=== PATIENT | female | born 1950 | race Caucasian/White ===

== ENCOUNTER → 2022-03-05 09:29 | Outpatient (BNVA) | payer MEDICARE, SELFPAY | PROVIDERS: PCP Internal Medicine; Referring Provider Internal Medicine; Visit Provider Internal Medicine Rheumatology | DX: M81.0 Age-related osteoporosis without current pathological fracture (principal); M47.817 Spondylosis without myelopathy or radiculopathy, lumbosacral region; M19.041 Primary osteoarthritis, right hand; M19.042 Primary osteoarthritis, left hand; M25.50 Pain in unspecified joint; R76.8 Other specified abnormal immunological findings in serum; K51.90 Ulcerative colitis, unspecified, without complications | CPT/HCPCS: 99212 ==

== ENCOUNTER 2022-04-30 14:07 | Outpatient (REF) | payer MEDICARE, SELFPAY ==
--- NOTE | ~2022-04-30 | MM_ITS ---
EXAMINATION: BONE DENSITOMETRY CLINICAL INDICATION: Age-related osteoporosis without current pathological fracture. COMPARISON: None (current study represents initial baseline exam). TECHNIQUE: Using a Mind[employer] Studio DXA System (software version: 13.1) manufactured by [employer], dual-energy x-ray absorptiometry was performed of the lumbar spine and left hip. The images are of good technical quality. Summary results are attached. FINDINGS: AP SPINE L1-L4: BMD 0.810 g/cm2, Z-score -1.8, T-score -3.1, osteoporosis. LEFT FEMUR, NECK: BMD 0.752 g/cm2, Z-score -0.6, T-score -2.1, osteopenia. LEFT FEMUR, TOTAL: BMD 0.747 g/cm2, Z-score -0.9, T-score -2.1, osteopenia. IDENTIFIED RISK FACTORS: Family history (parent hip fracture), height loss, menopause, osteoporosis. HISTORY OF FRACTURE: None listed. MEDICATIONS: Vitamin D. MM/XR DEXA axial skeleton IMPRESSION: 1. DIAGNOSIS: Osteoporosis based on the lowest T-score value of -3.1 in the lumbar spine applying World Health Organization criteria. 2. 10-YEAR FRACTURE RISK PREDICTION, FRAX: According to the guidelines, FRAX calculation should only be performed on patients in the osteopenia bone density category. Therefore, FRAX was not performed on this patient. 3. Treatment Recommendations: NOF guidelines recommend consideration for treatment in postmenopausal women and men age 50 and older presenting with the following: -A hip or vertebral (clinical or morphometric) fracture. -T-score less than or equal to -2.5 at the femoral neck or spine after appropriate evaluation to exclude secondary causes. -Low bone mass at the hip or spine and a 10-year fracture probability by FRAX of greater than or equal to 3% for hip fracture or greater than or equal to 20% for major osteoporotic fracture based on the [place] adapted WHO algorithm. 4. Other Recommendations: All treatment decisions require clinical judgment and consideration of individual patient factors, including patient preferences, comorbidities, previous drug use, risk factors not captured in the FRAX model (e.g. frailty, falls, vitamin D deficiency, increased bone turnover, interval significant decline in bone density) and possible under or overestimation of fracture risk by FRAX. Additional medical evaluation for secondary cause of low bone mineral density may be appropriate. FUTURE SCAN RECOMMENDATION: People with diagnosed cases of osteoporosis or at high risk for fracture should have regular bone mineral density tests. For patients eligible for Medicare, routine testing is allowed once every 2 years. The testing frequency can be increased to one year for patients who have rapidly progressing disease, those who are receiving or discontinuing medical therapy to restore bone mass, or have additional risk factors.
== END 2022-04-30 14:08 | disposition home or self-care (01) ==
LOC: HO.MAMMO 14:07
PROVIDERS: PCP Internal Medicine; Visit Provider Internal Medicine Rheumatology
DX: Z13.820 Encounter for screening for osteoporosis (principal); Z78.0 Asymptomatic menopausal state; M81.0 Age-related osteoporosis without current pathological fracture
CPT/HCPCS: 77080

== ENCOUNTER → 2022-05-06 11:25 | Outpatient (BNVA) | payer MEDICARE, SELFPAY | PROVIDERS: PCP Internal Medicine; Visit Provider Internal Medicine Rheumatology | DX: M77.01 Medial epicondylitis, right elbow (principal); M81.0 Age-related osteoporosis without current pathological fracture; M19.041 Primary osteoarthritis, right hand; M19.042 Primary osteoarthritis, left hand | CPT/HCPCS: 99212 ==

== ENCOUNTER 2022-11-03 08:07 | Outpatient (AMB) | payer MEDICARE, SELFPAY ==
[2022-11-03 08:09] VITALS: BP 118/66; PULSE 83; TEMP 36.2; O2SAT 95; BMI 28.6
--- NOTE | 2022-11-03 08:09 | MHC.OFFVIS ---
Intake Vital Signs 11/03/22 08:09 Height 5 ft 5 in Weight 171 lb 11.841 oz BMI 28.6 BP 118/66 Blood Pressure Location Rt brachial Position Sitting Pulse 83 Pulse Source Pulse Oximeter Temp 97.2 F Temp Source Skin Pulse Oximetry (%) 95 Intake Visit Reasons: op Intake Note: Pt seen today for OA follow up. C/o migrating joint pain mostly in knees and ankles. 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 She has been on the alendronate taking 70 mg once a week since April. There have been no problems. She does report some discomfort at the base of the thumbs and occasionally in the interphalangeal joints. She does take occasional acetaminophen for her symptoms. She is on 25 mcg daily vitamin-D 3 supplements. [facility] Medical History Cervical lymphadenopathy GERD (gastroesophageal reflux disease) Hyperlipidemia Tubular adenoma Surgical History Hx of cholecystectomy Family History Mother Alzheimer disease Breast cancer Father CVA (cerebral vascular accident) Hypertension Brother Myocardial infarct Son Bipolar 1 disorder Social History Household Members: Other Household Members Other:: partner Housing: Apartment Are you a primary career resource specialist to a significant other at home: No Do you presently have visiting nurse or other home services: No 75 years or older and lives alone: No Alcohol intake: current Alcohol intake frequency: a few times a month Alcohol type: wine Patient Tobacco Use Status: Never used Tobacco e-Cigarette/Vaping Use: Never Used service: No Current occupational status: employed 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 Brad/Lymph Details: Negative for excessive bruising or bleeding. Physical Exam Vital Signs: Last Vital Signs Temp 97.2 F 11/03/22 08:09 Pulse 83 11/03/22 08:09 BP 118/66 11/03/22 08:09 Pulse Ox 95 11/03/22 08:09 BMI result Body Mass Index 28.6 APPEARANCE: Patient in no acute distress JOINT EXAM: Hands:? Right:? Mild bony enlargement and mild tenderness at the base of the thumb.? There is mild bony enlargement with slight tenderness at the PIP joints.? There is more significant bony enlargement and mild tenderness at the DIP joints.? There is some thenar atrophy but no sensory loss.? There is no flexor tendon triggering or tenderness.? Left:? Moderate bony enlargement and mild tenderness at the base of the thumb.? There is some hyperextension deformity at the thumb MCP and PIP.? There is mild bony enlargement at the PIP joints.? This is most marked flexion deformity at the 4th PIP.? All those PIP's have slight tenderness.? There is also mild bony enlargement flexion deformities at the 2nd through 4th DIP joints.? No flexor tendon triggering.? There is some thenar atrophy but no sensory loss. Wrists:.? Normal pain-free range of motion without tenderness, swelling, increased warmth or erythema. Elbows:? Right:? Normal pain-free range of motion with some mild to moderate medial epicondylar tenderness.? There is no tenderness or swelling over the joint space.? Left:? Normal pain-free range of motion without tenderness, swelling, increased warmth or erythema. Shoulders:.?? Full range of motion without pain. No tenderness, weakness, swelling, increased warmth or erythema. Hips:.? Full range of motion without pain. Hip bursa:.? No tenderness. Knees:? Normal pain-free range of motion with mild patellofemoral crepitus.? There is mild medial compartment tenderness bilaterally without effusion, soft tissue swelling, increased warmth or erythema.? Assessment & Plan Assessment & Plan (1) Osteoarthritis of hands, bilateral: Code(s): M19.041 - Primary osteoarthritis, right hand; M19.042 - Primary osteoarthritis, left hand (2) Osteoporosis: Comment: May 2019 DEXA at [place]: T-scores at hip-2.5, and LS spine, -2.9 04/2022 DEXA at [place]: hip -1.7 LS spine -3.1 04/2022 alendronate started Code(s): M81.0 - Age-related osteoporosis without current pathological fracture Plan She seems to be tolerating the alendronate for the osteoporosis. There is some osteoarthritis in the hands that does not seem to bother her too much currently. We will check a vitamin-D level to optimize its level. I told her we would continue the alendronate and plan to do a repeat bone density in 2024 to see if there is any impact on the bone density with current treatment. She will call us in late 2023 to get a 2024 appointment. Orders: Orders Vitamin D 25-OH (D2 and D3) Today M81.0 - Age-related osteoporosis without current pathological fracture Coding Level of Care Code Est Pt Level 3 (19474) Diagnoses Osteoarthritis of hands, bilateral M19.041; M19.042 Osteoporosis M81.0
== END 2022-11-03 08:25 | disposition home or self-care (01) ==
LOC: HO.RHE 08:07
PROVIDERS: PCP Internal Medicine; Visit Provider Internal Medicine Rheumatology
DX: M19.041 Primary osteoarthritis, right hand (principal); M19.042 Primary osteoarthritis, left hand; M81.0 Age-related osteoporosis without current pathological fracture
CPT/HCPCS: 99213

== ENCOUNTER → 2022-11-03 08:07 | Outpatient (BNVA) | payer MEDICARE, SELFPAY | PROVIDERS: PCP Internal Medicine; Visit Provider Internal Medicine Rheumatology | DX: M81.0 Age-related osteoporosis without current pathological fracture (principal); M19.041 Primary osteoarthritis, right hand; M19.042 Primary osteoarthritis, left hand | CPT/HCPCS: 99212 ==

== ENCOUNTER 2024-04-25 10:30 | Outpatient (AMB) | payer MEDICARE, SELFPAY ==
[2024-04-25 10:31] VITALS: BP 132/72; PULSE 95; BMI 25.9
--- NOTE | 2024-04-25 10:31 | A.OFFVIS_ITS ---
Vital Signs 04/25/24 10:31 Height 5 ft 5 in Weight 155 lb 10.342 oz BMI 25.9 BP 132/72 Blood Pressure Location Rt brachial Position Sitting Pulse 95 Pulse Source Pulse Oximeter Intake Visit Reasons: Osteoporosis Intake Note: Patient last seen by Doctor Justyn Mancini on 11/03/22. Presents today for Osteoporosis follow up. 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 Accompanied by: Self / Same As Patient Allergies lisinopril Allergy (Intermediate, Verified 04/25/24 10:36) Cough sulfasalazine Allergy (Intermediate, Verified 04/25/24 10:36) rash Medication List - Last Reconciled 04/25/24 by Sterling Lucas MD acetaminophen ER (Tylenol Arthritis Pain) 1,300 mg PO Q12H PRN alendronate 70 mg PO QWEEK arm brace (Elbow Strap) Appy when using hands atorvastatin 20 mg PO DAILY bupropion HCl XL 300 mg PO DAILY cholecalciferol (vitamin D3) 25 mcg PO DAILY clonidine HCl 0.1 mg PO DAILY famotidine 20 mg PO BID fluocinolone 0.01% 1 appl topical BID gabapentin 100 mg PO BEDTIME ketoconazole 2% 1 appl topical 2XW melatonin 3 mg PO BEDTIME PRN omeprazole 20 mg PO DAILY HPI Comments Details: 74-year-old female with osteoporosis and osteoarthritis returns for follow-up. She has been taking Fosamax since approximately 04/2022. Well-tolerated. She denies any recent falls or fractures. She states that she gets intermittent mid to low back pain, that is nonradiating to her legs, intermittent left knee pain, usually with activity. 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 Symptoms improve with rest, icing the affected joints and Tylenol. [facility] Medical History GERD (gastroesophageal reflux disease) Cervical lymphadenopathy Hyperlipidemia Tubular adenoma Surgical History Hx of cholecystectomy Family History Mother Alzheimer disease Breast cancer Father CVA (cerebral vascular accident) Hypertension Brother Myocardial infarct Son Bipolar 1 disorder Social History Household Members: Other Household Members Other:: partner Housing: Apartment Are you a primary caregiver services home to a significant other at home: No Do you presently have visiting nurse or other home services: No 75 years or older and lives alone: No Alcohol intake: current Alcohol intake frequency: a few times a month Alcohol type: wine Patient Tobacco Use Status: Never used Tobacco e-Cigarette/Vaping Use: Never Used service: No Current occupational status: employed 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 Review of Systems [facility] [place] Reports back pain, Reports arthralgias and Denies radiating pain into limb Physical Exam Vital Signs: Last Vital Signs Pulse 95 04/25/24 10:31 BP 132/72 04/25/24 10:31 Const General: cooperative, healthy appearing and comfortable Nutritional Appearance: overweight Orientation/consciousness: patient oriented x3 Limitations: no limitations HEENT Head: Yes normocephalic and Yes atraumatic Mouth: moist mucous membranes Resp Effort & Inspection: normal respiratory effort and able to speak in complete sentences Auscultation: clear to auscultation bilaterally Cardio Rate: regular rate Rhythm: regular rhythm Skin General skin exam: no rashes or lesions noted Neuro General: patient oriented x3 Extrem Other: Significant osteoarthritic changes of both hands with squaring of the 1st CMC joints Prominent Shobha's and Heberden's nodes No active synovitis today Normal pain-free range of motion of elbows and shoulders Assessment & Plan Assessment & Plan (1) Osteoporosis: Comment: May 2019 DEXA at [place]: T-scores at hip-2.5, and LS spine, -2.9 04/2022 DEXA at [place]: hip -1.7 LS spine -3.1 04/2022 alendronate started Code(s): M81.0 - Age-related osteoporosis without current pathological fracture Category: Medical Qualifiers: Osteoporosis type: age-related Presence of current pathological fracture: without current pathological fracture Qualified Code(s): M81.0 - Age- related osteoporosis without current pathological fracture Plan: This is a 74-year-old female with osteoporosis who presents for follow-up. We discussed osteoporosis and its management. Patient is due for a repeat DEXA scan. Repeat DEXA scan ordered Check labs for bone activity markers and secondary causes of osteoporosis Continue with vitamin-D intake Continue with Fosamax Discussed weight-bearing exercise Follow-up in 2-3 months Plan I spent 20 minutes reviewing patient's chart, evaluating patient, ordering diagnostic workup, counseling patient and documenting in the chart Orders: Orders XR DEXA axial skeleton Today M81.0 - Age-related osteoporosis without current pathological fracture Coding Level of Care Code Est Pt Level 4 (45427) Diagnoses Age-related osteoporosis without current pathological fracture M81.0 Osteoporosis type: age-related Presence of current pathological fracture: without current pathological fracture
== END 2024-04-25 10:55 | disposition home or self-care (01) ==
PROVIDERS: PCP Internal Medicine; Visit Provider Student in an Organized Health Care Education/Training Program
DX: M81.0 Age-related osteoporosis without current pathological fracture (principal)
CPT/HCPCS: 99214

== ENCOUNTER → 2024-04-25 10:30 | Outpatient (BNVA) | payer MEDICARE, SELFPAY | PROVIDERS: PCP Internal Medicine; Visit Provider Student in an Organized Health Care Education/Training Program | DX: M81.0 Age-related osteoporosis without current pathological fracture (principal) | CPT/HCPCS: 99212 ==

== ENCOUNTER 2024-04-28 07:33 | Outpatient (REF) | payer MEDICARE, SELFPAY ==
[2024-04-28 11:08] LABS: Alanine Aminotransferase 19 U/L (0-31); Albumin Level 4.3 g/dL (3.5-5.0); Alkaline Phosphatase 57 U/L (39-117); Anion Gap 10 (12-20); Aspartate Amino Transferase 19 U/L (5-31); Bilirubin Total 0.4 mg/dL (0.0-1.0); Blood Urea Nitrogen 14 mg/dL (9-16); Calcium 9.1 mg/dL (8.4-10.2); Carbon Dioxide 28 mmol/L (22-29); Chloride 106 mmol/L (96-108); Estimated Glomerular Filt Rate > 60; Glucose Random 107 mg/dL (60-115); Potassium 4.2 mmol/L (3.3-5.1); Sodium 140 mmol/L (135-145); Total Protein 7.2 g/dL (6.5-8.0)
[2024-04-28 11:19] LABS: TSH reflex Free T4 1.08 uIU/mL (0.32-4.0); Vitamin D 25-OH Total 57.5 ng/mL (>30)
[2024-05-01 11:08] LABS: Prot Elec - Albumin 4.4 g/dL (3.8-4.8); Prot Elec - Alpha1 0.3 g/dL (0.2-0.3); Prot Elec - Alpha2 0.7 g/dL (0.5-0.9); Prot Elec - Beta 1 0.5 g/dL (0.4-0.6); Prot Elec - Beta 2 0.5 g/dL (0.2-0.5); Prot Elec - Gamma 0.8 g/dL (0.8-1.7); Prot Elec - Total Protein 7.1 g/dL (6.1-8.1)
[2024-05-03 05:39] LABS: Collagen Type I C-Telopeptide 88 pg/mL (see note)
== END 2024-04-28 07:34 | disposition home or self-care (01) ==
LOC: HO.10HDL 07:33
PROVIDERS: Visit Provider Student in an Organized Health Care Education/Training Program
DX: M81.0 Age-related osteoporosis without current pathological fracture (principal); E55.9 Vitamin D deficiency, unspecified
CPT/HCPCS: 36415; 80053; 82306; 82523; 84165; 84443

== ENCOUNTER 2024-06-13 08:37 | Outpatient (REF) | payer MEDICARE, SELFPAY ==
--- OUTSIDE RECORDS SUMMARY | 2024-06-13 09:03 | XMS_ITS | Encounter Summary ---
Author Organization [facility] Address [address] [place] [address] Care Team Providers Care Top Dyeing Machine Loader Name Role Phone Jada Santana MD Primary Care Provider Natasha Toney APRN Unavailable [phone] Edy Davis MD Unavailable Encounter Details Date Type Department Care Team (Late st Contact Info) Description 06/07/[address] [place] [address] Jada Santana MD [address] [place] [address] Social History Tobacco Use Types Packs/Day Years Used Date Smoking Tobacco: Never Smokeless Tobacco: Never Alcohol Use Standard Drinks/Week Comments Yes 0 (1 standard drink = 0.6 oz pur e alcohol) Once a month (two) [facility] Utilities Answer Date Recorded In the past 12 months has [employer], gas, oil, or water [employer] threatened to shut off services in your home? No 05/25/2024 Social Connection and Isolation Panel [NHANES] A nswer Date Recorded In a typical week, how many times do you talk on the phone with family, friends, or neighbors? Three times a week 05/25/2024 Frequency of Social Gatherin gs with Friends and Family Not on file 05/25/2024 Attends Yazidism Services Not on file 05/25 Active Member of Clubs or Organizations Not on f ile 05/25/2024 Attends Club or Organization Meetings Not on tushar e 05/25/2024 Marital Status Not on file 05/25/2024 AUDIT-C Answer Date Recorded Q1: How often do you have a drink containing alc ohol? Monthly or less 05/25/2024 Q2: How many drinks containi ng alcohol do you have on a typical day when you are drinking? 1 or 2 05/25/2024 Frequency of Binge Drinking Not on file 04/28 PHQ-2 Answer Date Recorded PHQ-2 Total Score 3 05/25/2024 Hunger Vital Sign Answer Date Recorded Within the past 12 months, y ou worried that your food would run out before you got the money to buy more. Never true 05/25/19 25 Within the past 12 months, t he food you bought just didn't last and you didn't have money to get more. Never true 05/25/2024 PRAPARE - Transportation Answer Date Re corded In the past 12 months, has l ack of transportation kept you from medical appointments or from getting medications? No 04/28 In the past 12 months, has l ack of transportation kept you from meetings, work, or from getting things needed for daily living? No 05/25/2024 Housing Stability Vital Sign Answer Kale e Recorded In the last 12 months, was t here a time when you were not able to pay the mortgage or rent on time? No 05/25/2024 Number of Times Moved in the Last Year Not on fi le 05/25/2024 At any time in the past 12 m [facility], were you homeless or living in a long term (including now)? No 05/25/2024 Education Answer Date Recorded What is the highest level of school you have completed or the highest degree you have received? Bachelor's degree (e.g., BA, AB, BS) 05/25/2024 Sex and Gender Information Value Date Recorded Sex Assigned at Female 05/24/2024 9:08 AM EST Gender Identity Female 05/24/2024 9:08 AM EST Sexual Orientation Heterosexual (straight) 05/24 9:08 AM EST documented as of this encounter Miscellaneous Notes * Telephone Encounter - Jada Santana MD - 06/07/2024 3:36 PM EST GI referral to Dr. Edy Davis. documented in this encounter Plan of Treatment Not on file documented as of this encounter Visit Diagnoses Not on filedocumented in this encounter Care Teams Top Dyeing Machine Loader Relationship Specialty Start Date End Date Jada Santana MD [address] [place] [address] PCP - General Internal Medicine 05/26/24 Natasha Toney APRN [address] [place] [address] Referring Provider 06/06/24 Edy Davis MD [address] [place] [id number] Internal Medicine 06/07/24 documented as of this encounter
--- OUTSIDE RECORDS SUMMARY | 2024-06-13 09:03 | XMS_ITS | Encounter Summary ---
Author Organization [facility] Address [address] [place] [address] Care Team Providers Care Planning Technician Name Role Phone Jada Santana MD Primary Care Provider [phone] Reason for Visit * Reason Onset Date Comments Appointment 06/09/2024 Encounter Details Date Type Department Care Team (Late st Contact Info) Description 06/09/2024 Telephone Gastroenterology - [place] [address] [place] [address] Edy Davis MD [address] [place] [address] Appointment Social History Tobacco Use Types Packs/Day Years Used Date Smoking Tobacco: Never Smokeless Tobacco: Never Alcohol Use Standard Drinks/Week Comments No 0 (1 standard drink = 0.6 oz pur e alcohol) Comments Unknown Sex and Gender Information Value Date Recorded Sex Assigned at Not on file Legal Sex Female 8:39 AM EST Gender Identity Not on file Sexual Orientation Not on file documented as of this encounter Progress Notes * Melinda Jacobo - 06/09/2024 10:39 AM EST Records received from Dr. Santana's office for patient to f/u with Dr. Davis for GERD. 1st attempt to reach patient to schedule appointment. Left message to call back. Placed in called accordion. documented in this encounter Plan of Treatment Upcoming Encounters Date Type Department Care Team (Late st Contact Info) Description 02/20/2025 8:30 AM EDT Office Visit Urogynecology - [place] [address] [place] [address] Adelina Magaña MD [address] [facility] [address] [place] [address] documented as of this encounter Visit Diagnoses Not on filedocumented in this encounter Care Teams Planning Technician Relationship Specialty Start Date End Date Jada Santana MD [address] [place] [address] PCP - General Internal Medicine 06/09/24 documented as of this encounter
--- OUTSIDE RECORDS SUMMARY | 2024-06-13 09:03 | XMS_ITS | Clinical Summary ---
Author Organization [facility] Address [address] [place] [address] Care Team Providers Care Paper Twister Name Role Phone Unavailable Primary Care Provider Unavailabl e Allergies Active Allergy Reactions Criticality Noted Date Comments Lisinopril 01/31/2019 Other reaction(s): Cough Sulfadiazine 01/16/2019 Other reaction(s): Rash/Dermatitis No reaction documented. Medications cholecalciferol , vitamin D3, 25 mcg (1,000 unit) capsule Take 1 capsule by mouth. Active melatonin 3 mg tab Take 1 tablet by mouth. Active naproxen sodium (ALEVE) 220 MG tablet Take 220 mg by mouth. Active sertraline (ZOLOFT) 100 MG tablet Take 100 mg by mouth. 09/03/2020 Active sertraline (ZOLOFT) 100 MG tablet TAKE 1 TABLET BY MOUTH EVERY DAY 09/03/2020 Active Social History Tobacco Use Types Packs/Day Years Used Date Smoking Tobacco: Never Assessed Comments Unknown Sex and Gender Information Value Date Recorded Sex Assigned at Not on file Legal Sex Female 12:33 PM EDT Gender Identity Not on file Sexual Orientation Not on file Last Filed Vital Signs Vital Sign Reading Time Taken Comments Blood Pressure - - Pulse 70 11/28/2020 5:09 PM EDT Temperature 36.3 ??C (97.3 ??F) 11/28/2020 5:09 PM ED T Respiratory Rate - - Oxygen Saturation 97% 11/28/2020 5:09 PM EDT Inhaled Oxygen Concentration - - Weight - - Height - - Body Mass Index - - Plan of Treatment Health Maintenance Due Date Last Done Comments Colorectal Cancer: COLONOSCO PY Screening every 10 yrs (or Modifier) 1950 Depression: Screening Annual ly using PHQ-2/9 in Adults 18 yrs or above (or HM Modifier)([facility]) 02/11/1970 Hepatitis C Virus Infection in Adolescents and Adults: Screening (or Modifier) ([facility]) 02/11/1970 SDOH Screening Reminder: Jennifer moffett for all adults ([facility]) 02/11/1970 Tobacco Smoking Cessation: i n Adults excluding Women: Behavioral and Pharmacotherapy Interventions ([facility]) 02/11/1970 DTaP/Tdap/Td Vaccines ([facility]) (1 - Tdap) 02/11/1971 Colorectal Cancer Screening 45 -75 Yrs (or HM Modifier) 02/11/1997 Colorectal Cancer: FLEXIBLE SIGMOIDOSCOPY Screening every 5 yrs 02/11/1997 Colorectal Cancer: Fecal Imm unochemical Test (FIT) Annually [facility] 02/11/1997 Colorectal Cancer: High-sens itivity gFOBT Screening Annually [facility] 02/11/1997 Colorectal Cancer: Stool Col oguard Screening every 3 yrs 02/11/1997 Colorectal Cancer:CT Colonog gaye Screening every 5 yrs 02/11/1997 Lipid Screening: Every 5 yrs for Women aged 45+ (or HM Modifier) ([facility]) 02/11/1998 Breast Cancer: Screening Jennifer zuhair age 50-74 yrs (or HM Modifier)([facility]) 02/11/2002 Zoster/Shingles Vaccine Seri es Screening: Adults aged 18+ yrs (or HM Modifiers)([facility]) (1 of 2) 02/11/2002 Osteoporosis Screening to Pr event Fractures: Women aged 65 years+ ([facility]) 02/11/2017 Pneumococcal Vaccination Scr eening: Patients 65+ yrs of age ([facility]) (1 of 1 - PCV) 02/11/2017 Flu Vaccination: Ages 65+: Y early High Dose Recommended (or Modifier)([facility]) 11/25/2023 03/06/2019 COVID-19 Vaccine Screening: Initial Series and Booster Status ([facility]) ( - season) 2023 07/23/2020, 06/24/2020 RSV Vaccines (1 - 1-dose 75+ series) 02/11/2027 Medical Devices Not on file Insurance [place] [address]
--- OUTSIDE RECORDS SUMMARY | 2024-06-13 09:03 | XMS_ITS | Encounter Summary ---
Author Organization [facility] Address [address] [place] [address] Care Team Providers Care Travel Med Surg Rn Name Role Phone Jada Santana MD Primary Care Provider Encounter Details Date Type Department Care Team (Latest Contact Info) Description 05/26/2024 Travel Social History Tobacco Use Types Packs/Day Years Used Date Smoking Tobacco: Never Smokeless Tobacco: Never Alcohol Use Standard Drinks/Week Comments Yes 0 (1 standard drink = 0.6 oz pur e alcohol) Once a month (two) [facility] Utilities Answer Date Recorded In the past 12 months has [employer], gas, oil, or water [facility] threatened to shut off services in your home? No 05/25/2024 Social Connection and Isolation Panel [NHANES] A nswer Date Recorded In a typical week, how many times do you talk on the phone with family, friends, or neighbors? Three times a week 05/25/2024 Frequency of Social Gatherin gs with Friends and Family Not on file 05/25/2024 Attends Mosque Services Not on file 05/25 Active Member [...] any time in the past 12 m [facility], were you homeless or living in a senior living (including now)? No 05/25/2024 Education Answer Date [...] AM EST documented as of this encounter Plan of Treatment Not on file documented as of this encounter Visit Diagnoses Not on filedocumented in this encounter Care Teams Travel Med Surg Rn Relationship Specialty Start Date End Date Jada Santana MD [address] [place] [address] PCP - General Internal Medicine 05/26/24 documented as of this encounter
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
--- OUTSIDE RECORDS SUMMARY | 2024-06-13 09:03 | XMS_ITS | Encounter Summary ---
Author Organization [facility] Address [address] [place] [id number] Care Team Providers Care Item Repair Manager Name Role Phone Jada Santana MD Primary Care Provider Natasha Toney APRN Unavailable [phone] Edy Davis MD Unavailable Reason for Referral * Gastroenterology (Routine) - Authorized Specialty Diagnoses / Procedures Referred By Contac t Referred To Contact Gastroenterology Diagnoses Gastroesophageal reflux disease, unspecified whether esophagitis present Jada Santana MD [address] [place] [address] Edy Davis MD [address] [place] [id number] Referral ID Status Reason Start Date Expiration Date V isits Requested Visits Authorized [id number] Authorized Consult 06/07/2024 06/08/2025 1 1 Question Answer Select Referral Type: Consult Encounter Details Date Type Department Care Team (Late st Contact Info) Description 06/07/2024 Orders Only [address] [place] [phone] Jada Santana MD [address] [place] [address] Gastroesophageal reflux disease, unspecified whether esophagitis present (Primary Dx) Social History Tobacco Use Types Packs/Day Years Used Date Smoking Tobacco: Never Smokeless Tobacco: Never Alcohol Use Standard Drinks/Week Comments Yes 0 (1 standard drink = 0.6 oz pur e alcohol) Once a month (two) [facility] Utilities Answer Date Recorded In the past 12 months has th e electric, gas, oil, or water company threatened to shut off services in your home? No 05/25/2024 Social Connection and Isolation Panel [NHANES] A nswer Date Recorded In a typical week, how many times do you talk on the phone with family, friends, or neighbors? Three times a week 05/25/2024 Frequency of Social Gatherin gs with Friends and Family Not on file 05/25/2024 Attends [employer] Not on file 05/25 Active Member [...] any time in the past 12 m [facility], were you homeless or living in a jail (including now)? No 05/25/2024 Education Answer Date [...] AM EST documented as of this encounter Progress Notes * Shanice Amezcua MA - 06/08/2024 12:30 PM EST Referral and OV notes faxed to Dr. Davis documented in this encounter Plan of Treatment Scheduled Referrals Name Type Priority Associated Diagnoses Order Schedule Amb Referral to Gastroenterology Outpatient Referral Routine Gastroesophageal reflux disease, unspecified whether esophagitis present Ordered: 06/07/2024 documented as of this encounter Visit Diagnoses Diagnosis Gastroesophageal reflux disease, unspecified whether esophagitis present- Primary documented in this encounter Care Teams Item Repair Manager Relationship Specialty Start Date End Date Jada Santana MD [address] [place] [address] PCP - General Internal Medicine 05/26/24 Natasha Toney APRN [address] [place] [id number] Referring Provider 06/06/24 Edy Davis MD [address] [place] [id number] Internal Medicine 06/07/24 documented as of this encounter
--- OUTSIDE RECORDS SUMMARY | 2024-06-13 09:03 | XMS_ITS | Clinical Summary ---
Author Organization [facility] Address [address] [place] [address] Care Team Providers Care Economic Developer Name Role Phone Jada Santana MD Primary Care Provider [phone] Natasha Toney APRN Unavailable [phone] Edy Davis MD Unavailable Allergies Active Allergy Reactions Criticality Noted Date Comments Lisinopril Cough Low 01/31/2019 Other reaction(s): Cough Sulfadiazine Rash/Dermatitis Low 01/16/2019 Other reaction(s): Rash/Dermatitis No reaction documented. No reaction documented. Medications Medication Sig Dispensed Refills Start Date End Date Status OMEprazole (PriLOSEC) 40 MG capsule Take 1 capsule (40 mg total) by mouth daily at the same time. 02/09/2024 Active solifenacin (VESICARE) 5 MG tablet Take 1 tablet (5 mg total) by mouth daily. Active melatonin 3 MG Tab tablet Take 1 tablet (3 mg total) by mouth as needed. Active estradiol (ESTRACE) 0.01 % vaginal cream Insert into the vagina 2 (two) times a week. 02/21/2024 03/16/2025 Active cloNIDine (CATAPRES) 0.1 MG tablet Take 1 tablet (0.1 mg total) by mouth daily. 10/03/2023 Active Vitamin D3 (CHOLECALCIFEROL) 25 MCG (1000 UT) Cap Take 1 capsule by mouth daily. Active busPIRone (BUSPAR) 5 MG tablet Take 1 tablet (5 mg total) by mouth 2 times a day. 08/05/2023 Active buPROPion (WELLBUTRIN XL) 150 MG 24 hr tablet Take 1 tablet (150 mg total) by mouth every morning. Active alendronate (FOSAMAX) 70 MG tablet Take 1 tablet (70 mg total) by mouth every 7 days. Take with a full glass of water; do not lie down for the next 30 min. Active atorvastatin (LIPITOR) 20 MG tablet Take 1 tablet (20 mg total) by mouth daily. Active Active Problems Problem Noted Date Diagnosed Date Hyperlipidemia 06/07/2024 Osteoporosis 06/07/2024 Anxiety and depression 06/07/2024 Acid reflux Encounters Date Type Department Care Team Description 06/07/2024 Orders Only [address] [phone] Jada Santana MD Gastroesophageal reflux disease, unspecified whether esophagitis present (Primary Dx) 06/07/[address] [phone] Jada Santana MD 05/26/2024 10:00 AM EST Office Visit [address] [phone] Jada Santana MD Encounter to establish care (Primary Dx); Gastroesophageal reflux disease, unspecified whether esophagitis present; Tremor; Hyperlipidemia, unspecified hyperlipidemia type; Osteoporosis, unspecified osteoporosis type, unspecified pathological fracture presence 05/26/[address] [phone] Jada Santana MD 05/26/2024 Travel from Last 3 Months Immunizations Name Administration Dates Next Due Covid-19 mRNA Primary Series Vaccine - Moderna 0.5 mL Full Dose 07/23/2020,06/24/2020 Influenza, Trivalent (FLUAD) Adjuvanted Preservative Free IM 65 years and older 01/07/2022,04/11/2021,03/06/2019 Zoster Vaccine Recombinant (Shingrix) 01/25/2023 Family History Medical History Relation Name Comments Alcohol abuse Brother Drug abuse Brother Cocaine Heart attack Brother Stroke Father Alzheimer's disease Maternal Aunt 1 Schizophrenia Maternal Aunt 2 Alzheimer's disease Maternal Aunt 3 Lung cancer Maternal Grandfather smoker Breast cancer Mother Stroke Paternal Aunt Heart attack Paternal Grandmother Stroke Paternal Grandmother Heart attack Paternal Uncle Lung cancer Sister at 62 Bipolar disorder Son 1 Parkinson's disease Neg Hx Tremor Neg Hx Relation Name Status Comments Brother Father Maternal Aunt 1 Maternal Aunt 2 Alive Maternal Aunt 3 Alive Maternal Grandfather Maternal Grandmother Mother Paternal Aunt Paternal Grandfather Paternal Grandmother Paternal Uncle Sister Son 1 Alive Son 2 Alive Social History Tobacco Use Types Packs/Day Years Used Date Smoking Tobacco: Never Smokeless Tobacco: Never Tobacco Cessation:Counseling Given: Not Answered Alcohol Use Standard Drinks/Week Comments Yes 0 (1 standard drink = 0.6 oz pur e alcohol) Once a month (two) [facility] Utilities Answer Date Recorded In the [...] and Family Not on file 05/25/2024 Attends Taoism Services Not on file 05/25 Active Member [...] any time in the past 12 m [facility], were you homeless or living in a nursing home (including now)? No 05/25/2024 Education Answer Date Recorded What is the highest level of school you have completed or the highest degree you have received? Bachelor's degree (e.g., BA, AB, BS) 05/25/2024 Sex and Gender Information Value Date Recorded Sex Assigned at Female 05/24/2024 9:08 AM EST Gender Identity Female 05/24/2024 9:08 AM EST Sexual Orientation Heterosexual (straight) 05/24 9:08 AM EST Last Filed Vital Signs Vital Sign Reading [...] Mass Index 25.63 05/26/2024 10:13 AM EST Plan of Treatment Health Maintenance Due Date Last Done Comments Hepatitis C Virus Screening 1950 Annual Wellness Visit 02/11/1970 Physical 02/11/1970 DTaP/Tdap/Td Vaccines (1 - Tdap) 02/11/1971 Mammogram 1992 Colonoscopy 02/11/1997 Pneumococcal Vaccines 50+ (1 of 1 - PCV) 02/11/2002 DXA Bone Density (Females,Ages 65 and older) 02/11/2017 Zoster (Shingles) Vaccine (2 of 2) 03/22/2023 01/25/2023 Influenza Vaccine 11/25/2023 01/07/2022, 04/11/2021, 03/06/2019 COVID-19 Vaccine (3 2023-2 5 season) 2023 07/23/2020, 06/24/2020 RSV Vaccine 60 years and older and Patients (1 - 1-dose 75+ series) 02/11/2027 Hepatitis B Vaccines Aged Out No long er eligible based on patient's age to complete this topic Care Teams Economic Developer Relationship Specialty Start Date End Date Jada Santana MD [address] [place] [address] PCP - General Internal Medicine 05/26/24 Natasha Toney APRN [address] [place] [address] Referring Provider 06/06/24 Edy Davis MD [address] [id number] Internal Medicine 06/07/24
--- OUTSIDE RECORDS SUMMARY | 2024-06-13 09:03 | XMS_ITS | Encounter Summary ---
Author Organization [facility] Address [address] [place] [address] Care Team Providers Care Civil Estimator Name Role Phone Jada Santana MD Primary Care Provider Natasha Toney APRN Unavailable [phone] Edy Davis MD Unavailable Encounter Details Date Type Department Care Team (Late st Contact Info) Description 05/26/[address] [place] [address] Jada Santana MD [address] [place] [address] Social History Tobacco Use Types Packs/Day Years Used Date Smoking Tobacco: Never Smokeless Tobacco: Never Alcohol Use Standard Drinks/Week Comments Yes 0 (1 standard drink = 0.6 oz pur e alcohol) Once a month (two) [facility] Utilities Answer Date Recorded In the past 12 months has [employer], gas, oil, or water [employer] threatened to shut off services in your home? No 05/25/2024 Social Connection and Isolation Panel [NHANES] A nswer Date Recorded In a typical week, how many times do you talk on the phone with family, friends, or neighbors? Three times a week 05/25/2024 Frequency of Social Gatherin gs with Friends and Family Not on file 05/25/2024 Attends Quaker Services Not on file 05/25 Active Member [...] any time in the past 12 m [facility], were you homeless or living in a chcf (including now)? No 05/25/2024 Education Answer Date [...] encounter Miscellaneous Notes * Telephone Encounter - Lesley Fitzpatrick - 06/08/2024 9:54 AM EST Vm left again for patient * Telephone Encounter - Jada Santana MD - 06/07/2024 3:33 PM EST Patient has not yet read your [facility] message about scheduling her follow-up appointment. Please follow-up with patient. Jada Santana MD * Telephone Encounter - Lesley Fitzpatrick - 05/26/2024 11:52 AM EST Vm left and my chart sent documented in this encounter Plan of Treatment Not on file documented as of this encounter Visit Diagnoses Not on filedocumented in this encounter Care Teams Civil Estimator Relationship Specialty Start Date End Date Jada Santana MD [address] [place] [address] PCP - General Internal Medicine 05/26/24 Natasha Toney APRN [address] [place] [address] Referring Provider 06/06/24 Edy Davis MD [address] [address] Internal Medicine 06/07/24 documented as of this encounter
--- OUTSIDE RECORDS SUMMARY | 2024-06-13 09:04 | XMS_ITS | Clinical Summary ---
Author Organization 175 [facility] Address [address] [place] [address] Phone Care Team Providers Care Hanging Flags Decorator Name Role Phone Jada Santana MD Primary Care Provider [phone] Encounters Date Type Department Care Team Description 06/09/2024 Telephone Gastroenterology [facility] 175 [facility] 175 [facility] [address] [place] [address] Edy Davis MD Appointment from Last 3 Months Surgical History Surgery Date Site/Laterality Comments CHOLECYSTECTOMY 05/23/2014 PROCEDURE: HISTORICAL CHOLECYSTECTOMY COLONOSCOPY 05/22/2019 PROCEDURE: HISTORICAL COLONOSCOPY; COMMENT: Dr. Davis; proctitis, UC, bx CHOLECYSTECTOMY PROCEDURE: DC LAPAROSCOPY SURG CHOLECYSTECTOMY OTHER SURGICAL HISTORY Bilateral PROCEDURE: DC DILATION & CURETTAGE DX&/THER NONOBSTETRIC Medical History Medical History Date Comments GERD (gastroesophageal reflu x disease) 01/16/2019 DX:GERD (gastroesophageal re flux disease) Anxiety 01/16/2019 DX:Anxiety Insomnia 01/16/2019 DX:Insomnia Depression 01/16/2019 DX:Depression Ulcerative colitis (CMS/HCC) 01/16/2019 DX: Ulcerative colitis (HCC); COMMENT: in remission x years Tubular adenoma 01/16/2019 DX:Tubular adeno ma Hyperlipidemia 01/16/2019 DX:Hyperlipidemi a Osteoarthritis 01/16/2019 DX:Osteoarthriti s; COMMENT: Hands and knees. Osteoporosis 01/16/2019 DX:Osteoporosis Cervical lymphadenopathy 01/16/2019 DX:Cerv ical lymphadenopathy Family History Medical History Relation Name Comments Stroke Aunt Paternal x 2 aunts Heart attack Brother 1 cocaine and alc ohol Alcohol abuse Brother 2 Other: Other Brother 2 from day from a house fire Hypertension Father Stroke Father hypertension Alzheimer's disease Mother Breast cancer Mother in her 70's. A lzheimer's. arthritis Lung cancer Sister smoker Other: Other Son 1 gets fluid arou nd heart Bipolar disorder Son 2 Heart attack Uncle Paternal x2 uncles Relation Name Status Comments Aunt Paternal Brother 1 Brother 2 Father Mother Other P Sister Son 1 Alive Son 2 Alive Uncle Paternal Social History Tobacco Use Types Packs/Day Years Used Date Smoking Tobacco: Never Smokeless Tobacco: Never Alcohol Use Standard Drinks/Week Comments No 0 (1 standard drink = 0.6 oz pur e alcohol) Comments Unknown Sex and Gender Information Value Date Recorded Sex Assigned at Not on file Legal Sex Female 8:39 AM EST Gender Identity Not on file Sexual Orientation Not on file Obstetrics History Last Filed Vital Signs Vital Sign Reading Time Taken Comments Blood Pressure 142/88 02/21/2024 10:37 AM EDT Pulse 68 02/21/2024 10:37 AM EDT Temperature - - Respiratory Rate - - Oxygen Saturation - - Inhaled Oxygen Concentration - - Weight 72 kg (158 lb 12.8 oz) 02/21/2024 10:37 A M EDT Height 165.1 cm (5' 5 ) 02/21/2024 10:37 AM EDT Body Mass Index 26.43 02/21/2024 10:37 AM EDT Plan of Treatment Upcoming Encounters Date Type Department Care Team (Late st Contact Info) Description 02/20/2025 8:30 AM EDT Office Visit Urogynecology [address] [address] Adelina Magaña MD [address] [place] [address] [address] [place] [address] Health Maintenance Due Date Last Done Comments Breast Cancer Screening 1950 Pneumococcal Vaccine: 50+ Years (1 of 1 - PCV) 02/11/2002 Cholesterol Screening (Lipid Panel) 03/29/2022 Colorectal Cancer Screening: Colonoscopy 03/29/2022 Depression Screening 03/29/2022 Falls Risk Assessment 03/29/2022 Hepatitis C Screening 03/29/2022 Medicare Annual Wellness Visit 03/29/2022 Social Influencers of Health Screening 03/29/2022 Zoster Vaccines (2 of 2) 03/22/2023 01/25/2023 COVID-19 Vaccine (3 - 2023-2 5 season) 2023 07/23/2020, 06/24/2020 Influenza Vaccine (#1) 2023 2, 04/11/2021, 03/06/2019 RSV Immunization Patients 60 + Years Old (1 - 1-dose 75+ series) 02/11/2027 Osteoporosis Screening (Bone Density Screening) 06/21/2029 06/21/2019 DTaP,Tdap,and Td Vaccines (3 - Td or Tdap) 06/26/2029 06/27/2019, 06/04/2010 HIB Vaccines Aged Out No longer eligi ble based on patient's age to complete this topic HPV Vaccines Aged Out No longer eligi ble based on patient's age to complete this topic Hepatitis A Vaccines Aged Out No long er eligible based on patient's age to complete this topic Hepatitis B Vaccines Aged Out No long er eligible based on patient's age to complete this topic IPV Vaccines Aged Out No longer eligi ble based on patient's age to complete this topic MMR Vaccines Aged Out No longer eligi ble based on patient's age to complete this topic Meningococcal ACWY Vaccine Aged Out N o longer eligible based on patient's age to complete this topic Meningococcal B Vacine Aged Out No lo nger eligible based on patient's age to complete this topic RSV Immunization Patients Under 20 months Aged Out No longer eligible b ased on patient's age to complete this topic Varicella Vaccines Aged Out No longer eligible based on patient's age to complete this topic Procedures Procedure Name Priority Date/Time Associated Diagnosis Comments DXA BONE DENSITY STUDY 1+ SITS AXIAL SKEL Routine 06/21/2019 12:47 PM EST Encounter for screening for osteoporosis from Last 3 Months or Most Recently Relevant to Health Maintenance Results * DXA BONE DENSITY STUDY 1+ SITS AXIAL SKEL (06/21/2019 12:47 PM EST) Anatomical Region Laterality Modality Bone Densitometr y 04/03/2019 2:47 PM EST Narrative 06/21/2019 1:58 PM EST BONE DENSITY SCAN (DEXA): FINDINGS: Lumbar Spine T-score is -2.9. ?? (SD relative to 20-29 y/o adult) Z-score is -1.0. ??(SD relative to age matched peers) This is considered osteoporosis by WHO criteria. Left Hip T-score is -2.5 in the femoral neck. Z-score is -0.8 in the femoral neck. This is considered osteoporosis by WHO criteria. Comparison exam(s): None. Lateral survey view of the thoracolumbar spine shows multilevel thoracolumbar endplate concavities. IMPRESSION: IMPRESSION: ?? Osteoporosis by WHO criteria. FRAX scores not able to be calculated. [facility] Department of Internal Medicine recommends using National Osteoporosis Foundation (NOF) guidelines in treatment decisions related to osteoporosis. NOF guidelines suggest considering treatment for postmenopausal women and men aged 50 or older presenting with the following: History of hip or vertebral fracture. T-score = -2.5 (DXA) at the femoral neck, total hip, or spine, after appropriate evaluation to exclude secondary causes. Low bone mass (T-score between -1.0 and -2.5 at the femoral neck or spine) AND a 10-year probability of a hip fracture = 3% OR a 10-year probability of a major osteoporosis-related fracture = 20% based on the [place]-adapted WHO algorithm Please note that all treatment decisions require clinical judgment and consideration of individual patient factors, including patient preferences, co-morbidities, previous drug use, risk factors not captured in the FRAX model (e.g., frailty, falls, vitamin D deficiency, increased bone turnover, interval significant decline in bone density) and possible under- or over-estimation of fracture risk by FRAX. Optional alternative screening schedule based on nakul Martinez., [place]NER May 14, 2011 for patients with osteopenia (based on hip BMD T-score) is as follows: * ??advanced osteopenia (T scores -2.00 to -2.49), BMD testing every year * ??moderate osteopenia (T scores -1.50 to -1.99), BMD testing every 5 years mild osteopenia or normal BMD (T scores -1.50 and higher), BMD testing every 15 years Procedure Note Ximena Navarro MD - 04/14/2022 BONE DENSITY SCAN (DEXA): FINDINGS: Lumbar Spine T-score is -2.9. (SD relative to 20-29 y/o adult) Z-score is -1.0. (SD relative to age matched peers) This is considered osteoporosis by WHO criteria. Left Hip T-score is -2.5 in the femoral neck. Z-score is -0.8 in the femoral neck. This is considered osteoporosis by WHO criteria. Comparison exam(s): None. Lateral survey view of the thoracolumbar spine shows multilevelthoracolumbar endplate concavities. IMPRESSION: IMPRESSION: Osteoporosis by WHO criteria. FRAX scores not able to be calculated. [facility] Department of Internal Medicine recommendsusing National Osteoporosis Foundation (NOF) guidelines in treatment decisions related toosteoporosis. NOF guidelines suggest considering treatment for postmenopausal women and menaged 50 or older presenting with the following: History of hip or vertebral fracture. T-score = -2.5 (DXA) at the femoral neck, total hip, or spine, afterappropriate evaluation to exclude secondary causes. Low bone mass (T-score between -1.0 and -2.5 at the femoral neck or spine)AND a 10-year probability of a hip fracture = 3% OR a 10-year probability of a majorosteoporosis-related fracture = 20% based on the [place]-adapted WHO algorithm Please note that all treatment decisions require clinical judgment andconsideration of individual patient factors, including patient preferences, co- morbidities,previous drug use, risk factors not captured in the FRAX model (e.g., frailty, falls, vitaminD deficiency, increased bone turnover, interval significant decline in bone density) andpossible under- or over-estimation of fracture risk by FRAX. Optional alternative screening schedule based on mahin Martinez al., NEJMJanuary 2011 for patients with osteopenia (based on hip BMD T-score) is as follows: * advanced osteopenia (T scores -2.00 to -2.49), BMD testing every year * moderate osteopenia (T scores -1.50 to -1.99), BMD testing every 5years mild osteopenia or normal BMD (T scores -1.50 and higher), BMD testingevery 15 years us Loida ZAZUETA IMG DXA PROCEDURES Final Resu lt from Last 3 Months or Most Recently Relevant to Health Maintenance Insurance [employer] MEDICARE Care Teams Hanging Flags Decorator Relationship Specialty Start Date End Date Jada Santana MD [address] [place] [address] PCP - General Internal Medicine 06/09/24
== END 2024-06-13 08:38 | disposition home or self-care (01) ==
LOC: HO.MAMMO 08:37
PROVIDERS: PCP Internal Medicine; Visit Provider Student in an Organized Health Care Education/Training Program
DX: M81.0 Age-related osteoporosis without current pathological fracture (principal)
CPT/HCPCS: 77080

== ENCOUNTER → 2024-06-13 08:45 | Outpatient (BNV) | payer MEDICARE, SELFPAY | PROVIDERS: PCP Internal Medicine; Visit Provider Radiology Diagnostic Radiology | DX: E28.39 Other primary ovarian failure (principal) | CPT/HCPCS: 77080 ==

== ENCOUNTER 2024-06-23 08:26 | Outpatient (AMB) | payer MEDICARE, SELFPAY ==
--- NOTE | 2024-06-23 08:28 | A.OFFVIS_ITS ---
Vital Signs 06/23/24 08:35 Height 5 ft 5 in Weight 151 lb 14.376 oz BMI 25.3 BP 140/80 H Blood Pressure Location Lt brachial Position Sitting Pulse 85 Pulse Source Pulse Oximeter Pulse Oximetry (%) 97 Oxygen Delivery Method Room Air Intake Visit Reasons: Osteoporosis Intake Note: Patient presents for Osteoporosis. Allergies lisinopril Allergy (Intermediate, Verified 06/23/24 08:32) Cough sulfasalazine Allergy (Intermediate, Verified 06/23/24 08:32) rash Medication List - Last Reconciled 06/23/24 by Brooklyn Mata MD acetaminophen ER (Tylenol Arthritis Pain) 1,300 mg PO Q12H PRN alendronate 70 mg PO QWEEK arm brace (Elbow Strap) Appy when using hands atorvastatin 20 mg PO DAILY bupropion HCl XL 300 mg PO DAILY cholecalciferol (vitamin D3) 25 mcg PO DAILY clonidine HCl 0.1 mg PO DAILY melatonin 3 mg PO BEDTIME PRN omeprazole 20 mg PO DAILY HPI Comments Details: Patient is a 74-year-old female with hyperlipidemia, anxiety and depression, polyarticular osteoarthritis (hands and L-spine), ulcerative colitis (currently diet managed) and osteoporosis here today for follow up Interval History: Patient last seen 04/25/[address] Lucas. At that time she was taking Fosamax and tolerating this medication without any recent falls or fractures. She reported intermittent mid to low back pain and intermittent left knee pain that improves with rest and Tylenol. Today, Patient is doing overall well. 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 Currently has pain in her hands and her lower back Rheumatologic History: OA Osteoporosis May 2019 DEXA at [facility]: T-scores at hip-2.5, and LS spine, -2.9 04/2022 DEXA at [facility]: hip -1.7 LS spine -3.1 04/2022 alendronate started Current Rheumatology Medication(s): Alendronate 70mg weekly PO Vitamin D supplementation [facility] Medical History GERD (gastroesophageal reflux disease) Cervical lymphadenopathy Hyperlipidemia Tubular adenoma Surgical History Hx of cholecystectomy Family History Mother Alzheimer disease Breast cancer Father CVA (cerebral vascular accident) Hypertension Brother Myocardial infarct Son Bipolar 1 disorder Social History Household Members: Other Household Members Other:: partner Housing: Apartment Are you a primary critical care specialist to a significant other at home: No Do you presently have visiting nurse or other home services: No 75 years or older and lives alone: No Alcohol intake: current Alcohol intake frequency: a few times a month Alcohol type: wine Patient Tobacco Use Status: Never used Tobacco e-Cigarette/Vaping Use: Never Used service: No Current occupational status: employed 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 [employer] Review of Systems Const Details: Review of Systems Constitutional: Denies fever, chills, weight loss ENT: Denies vision changes, eye pain or eye redness, dental caries, dry mouth GI: Denies nausea, vomiting, diarrhea, abdominal pain, change in BM Pulm: Denies SOB, WATTS, hemoptysis, wheezing Cards: Denies chest pain, palpitations Skin: Denies Raynaud's, rash, nail changes, photosensitivity, BACK UP SCAN COORDINATOR: Denies headaches, weakness, paresthesias, recurrent falls MSK: as per HPI All other systems reviewed and are unremarkable except noted above Physical Exam Vital Signs: BMI result Body Mass Index 25.3 Vital signs reviewed Physical Examination CONSTITUITIONAL Patient alert and cooperative. Well appearing and in no apparent painful distress HEENT Conjunctiva and sclera clear. ?Pupils equal round and reactive to light. ?No lymphadenopathy. ? CHEST/RESPIRATORY SYSTEM Normal respiratory effort and able to speak in complete sentences. ?Clear to auscultation bilaterally. ?No crackles, rales, rhonchi, wheezes heard. CARDIAC SYSTEM Regular rate and rhythm. ?S1 and S2 heard no murmurs. ?Radial pulses intact bilaterally MSK Hands: ?Good materials technician strength bilaterally. Has the classic osteoarthritic hands with prominent Heberden nodes, Shobha's nodes as well as squaring as of the 1st CMC joint bilaterally Wrists: ?Full range of motion at the wrists without pain. ?No tenderness to palpation or synovitis noted to the wrists. Elbows: Full range of motion without pain. No tenderness, weakness, swelling, increased warmth or erythema. Shoulders: Full range of motion without pain. No tenderness, weakness, swelling, increased warmth or erythema. Hips: Full range of motion without pain. Hip bursa: No tenderness to palpation Knees: ?Full range of motion. ?No tenderness, swelling, increased warmth or erythema.? Crepitations felt bilateral knee Ankles: Full range of motion. ?No tenderness, swelling, increased warmth or erythema.? Feet: ?Negative squeeze test. ?No tenderness to palpation or swelling of the MTPs. Tender points:?No tenderness to palpation of the bilateral trapezius, supraspinatus, greater trochanters, anterior costochondral junctions, bilateral gluteal areas, bilateral suboccipital muscle insertions SKIN Skin intact without rashes. Results Reviewed Results Reviewed: Laboratory Tests 04/28/24 09:10 Sodium 140 Potassium 4.2 Chloride 106 Carbon Dioxide 28 BUN 14 Creatinine 0.78 AST 19 ALT 19 Alkaline Phosphatase 57 PEP Interpretation Normal PEP 25-OH Vitamin D Total 57.5 DEXA 06/13/24 FINDINGS: The bone mineral density of the lumbar spine is 0.749 with a T-score of -3.5, and a Z-score of -1.8. This represents a BMD change of 0.1% compared to the prior exam. This is not statistically significant. The bone mineral density of the left total hip is 0.742 with a T-score of -2.1, and a Z-score of -0.6. This represents BMD change of -0.7% compared to the prior exam. This is not statistically significant. The bone mineral density of the left femoral neck is 0.773 with a T-score of -1.9, and a Z-score of -0.1. Assessment & Plan Assessment & Plan (1) Osteoporosis: Comment: May 2019 DEXA at [facility]: T-scores at hip-2.5, and LS spine, -2.9 DEXA 04/2022: AP spine -3.1, Left femur neck -2.1, Left femur total -2.1 04/2022 alendronate started DEXA 05/2024: L spine -3.5, Left femur neck -1.9, Left femur total -2.1 Code(s): M81.0 - Age-related osteoporosis without current pathological fracture Category: Medical Qualifiers: Osteoporosis type: age-related Presence of current pathological fracture: without current pathological fracture Qualified Code(s): M81.0 - Age-related osteoporosis without current pathological fracture Plan: #Osteoporosis Patient is a 74-year-old female who has osteoporosis without fracture. Bone density between 2022 and 2024 grossly unchanged with no improvement. Discussed with patient that we would like to change to Prolia given that there has been any improvement in her bone density in fact there has been slight worsening at the spine however it is not statistically significant worsening. Patient is in agreement with the plan and is also going to do more weight-beari ng exercises (pamphlet given) Plan - Stop alendronate - Start Prolia 60mg every 6 months. Once approved bring patient in for nurse visit for first dose - RTC 6 months - Labs prior to visit: CBC, CMP, vitamin D (2) Osteoarthritis of hands, bilateral: Code(s): M19.041 - Primary osteoarthritis, right hand; M19.042 - Primary osteoarthritis, left hand Category: Medical Qualifiers: Osteoarthritis type: primary Qualified Code(s): M19.041 - Primary osteoarthritis, right hand; M19.042 - Primary osteoarthritis, left hand Plan: #Bilateral Hand OA Patient with pretty severe bilateral hand osteoarthritis. Recommended topical diclofenac 4 times a day, copper gloves and paraffin wax hand baths with exercises (3) FREDY positive: Comment: 2020: 1:1280, speckled pattern. Negative EDENILSON, Sjogren's antibody, anti DNA, rheumatoid factor, CCP antibody, B27 Code(s): R76.8 - Other specified abnormal immunological findings in serum Category: Medical Plan: #Positive FREDY The presence of antinuclear antibodies (FREDY) is mainly associated with connective tissue diseases (CTD). ?However, their presence is found in healthy people especially in women and patients >65. ?In healthy individuals, the frequency of FREDY has been shown to be 31.7% of individuals at 1:40 serum dilution, 13.3% at 1:80, 5.0% at 1:160, and 3.3% at 1:320 (2). Some drugs and xenobiotics are also important for the development of FREDY (hydralazine, hydrochlorothiazide, minocycline, terbinafine, ciprofloxacin, furosemide, omeprazole). Moreover, the deficiency of vitamin D in the body of patients correlates with occurrence of these antibodies (1). At this time there is low suspicion for a connective tissue disease. ? Patient also has a history of ulcerative colitis which can also generate an FREDY as well. 1. Melisa?argenis La, Slick Blanchard, Kelsie Geiger. Antinuclear antibodies in healthy people and non-rheumatic diseases - diagnostic and clinical implications. Reumatologia. 2018;56(4):243-248. doi: 10.5114/reum.2018.74290. Epub 2017Dec 24. PMID: 38635521; PMCID: [id number]. 2. Trotter EM, Santos TE, Yolanda JS, Mark B, Jaime R, Maryam MJ, Donato T, Behzad JA, Pawel JR, Sanjana RG, Nighat RN, Francois JS, Lizet NF, Dani RJ, Danielle Y, Gonzalo A, Dudley MR, Gary FIELDS. Range of antinuclear antibodies in healthy individuals. Arthritis Rheum. 1996;40(9):1601-11. doi: 10.1002/art.0131236121. PMID: 4155765. (4) Encounter for monitoring denosumab therapy: Code(s): Z51.81 - Encounter for therapeutic drug level monitoring; Z79.620 - long term care phlebotomist (current) use of immunosuppressive biologic Category: Medical Plan: #Long-term use of Denosumab Discussed with patient the risks and benefits of denosumab (Prolia) for the management of their osteoporosis Benefits include improved bone density, decreased fracture risk Risks include rapid bone loss if denosumab stopped, osteonecrosis of the jaw especially in patients with poor oral hygiene/diabetes/use of glucocorticoids/age greater than 65 years, atypical femoral fractures, injection site reactions. Mild increased risk of infections due to RANKL on T helper cells, increased risk of hypocalcemia especially in CKD patients Keep vitamin-D at least 35 ng/mL Advised to delay non emergent dental procedures to toward the end of the 6 month cycle and if they plan to stop denosumab would need to continue antiresorptive to maintain the effects of denosumabe Plan I spent 25 minutes reviewing the record and labs, taking a history, examining the patient, discussing the treatment plan and documenting in the medical record Medications: New diclofenac sodium 1% (Arthritis Pain (diclofenac)) apply to bilateral hands 4 times a day 4 grams topical QID 100 grams 5RF M19.041 - Primary osteoarthritis, right hand, M19.042 - Primary osteoarthritis, left hand denosumab (Prolia) 60 mg subcut [id number] 1 mL 0RF M81.0 - Age-related osteoporosis without current pathological fracture cholecalciferol (vitamin D3) 25 mcg PO DAILY 90 caps 1RF E55.9 - Vitamin D deficiency, unspecified Discontinued alendronate Discontinued Reason: Doctor's Order 70 mg PO QWEEK 12 tabs 3RF M81.0 - Age-related osteoporosis without current pathological fracture Coding Level of Care Code Est Pt Level 3 (64092) Complex EM visit Add On G2211 Diagnoses Age-related osteoporosis without current pathological fracture M81.0 Osteoporosis type: age-related Presence of current pathological fracture: without current pathological fracture Primary osteoarthritis of both hands M19.041; M19.042 Osteoarthritis type: primary FREDY positive R76.8 Encounter for monitoring denosumab therapy Z51.81; Z79.184
[2024-06-23 08:35] VITALS: BP 140/80; PULSE 85; O2SAT 97; BMI 25.3
--- OUTSIDE RECORDS SUMMARY | 2024-06-23 08:36 | XMS_ITS | Clinical Summary ---
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 Digger Truck Driver Name Role Phone Jada Santana MD Primary Care Provider [phone] Natasha Toney APRN Unavailable [phone] Edy Davis MD Unavailable Allergies Active Allergy [...] Department Care Team Description 06/07/2024 Orders Only [address] [address] Jada Santana MD Gastroesophageal reflux disease, unspecified whether esophagitis present (Primary Dx) 06/07/[address] [address] Jada Santana MD 05/26/2024 10:00 AM EST Office Visit [address] [address] Jada Santana MD Encounter to establish care (Primary Dx); Gastroesophageal reflux disease, unspecified whether esophagitis present; Tremor; Hyperlipidemia, unspecified hyperlipidemia type; Osteoporosis, unspecified osteoporosis type, unspecified pathological fracture presence 05/26/[address] [address] Jada Santana MD 05/26/2024 Travel from Last [...] pur e alcohol) Once a month (two) [facility] Utilities Answer Date Recorded In the [...] and Family Not on file 05/25/2024 Attends [employer] Not on file 05/25 Active Member [...] [facility] time in the [facility], were you homeless or living in a correction (including now)? No 05/25/2024 Education Answer Date [...] 11/25/2023 01/07/2022, 04/11/2021, 03/06/2019 COVID-19 Vaccine (3 - 2023-2 5 season) 2023 01/25/2023, 07/23/2020, 06/24/2020 RSV Vaccine 60 years and older and Patients (1 - 1-dose 75+ series) 02/11/2027 Hepatitis B Vaccines Aged Out No long er eligible based on patient's age to complete this topic Care Teams Hole Digger Truck Driver Relationship Specialty Start Date End Date Jada Santana MD [address] [place] [address] PCP - General Internal Medicine 05/26/24 Natasha Toney APRN [address] [place] [address] Referring Provider 06/06/24 Edy Davis MD [address] [address] Internal Medicine 06/07/24
--- OUTSIDE RECORDS SUMMARY | 2024-06-23 08:36 | XMS_ITS | Encounter Summary ---
Author Organization [facility] Address [address] [place] [address] Care Team Providers Care Online Marketing Director Name Role Phone Jada Santana MD Primary Care Provider Natasha Toney APRN Unavailable [phone] Edy Davis MD Unavailable Encounter Details Date Type Department Care Team (Late st Contact Info) Description 06/07/[address] [place] [address] Jada Santana MD [address] [place] [address] Social History Tobacco Use Types Packs/Day Years Used Date Smoking Tobacco: Never Smokeless Tobacco: Never Alcohol Use Standard Drinks/Week Comments Yes 0 (1 standard drink = 0.6 oz pur e alcohol) Once a month (two) [facility] Utilities Answer Date Recorded In the past 12 months has [employer], gas, oil, or water [employer] threatened to shut off services in your home? No 05/25/2024 Social Connection and Isolation Panel [NHANES] A nswer Date Recorded In a typical week, how many times do you talk on the phone with family, friends, or neighbors? Three times a week 05/25/2024 Frequency of Social Gatherin gs with Friends and Family Not on file 05/25/2024 Attends Jainism Services Not on file 05/25 Active Member [...] any time in the past 12 m [facility], were you homeless or living in a mcfp (including now)? No 05/25/2024 Education Answer Date [...] on filedocumented in this encounter Care Teams Online Marketing Director Relationship Specialty Start Date End Date Jada Santana MD [address] [place] [address] PCP - General Internal Medicine 05/26/24 Natasha Toney APRN [address] [place] [address] Referring Provider 06/06/24 Edy Davis MD [address] [place] [address] Internal Medicine 06/07/24 documented as of this encounter
--- OUTSIDE RECORDS SUMMARY | 2024-06-23 08:36 | XMS_ITS | Encounter Summary ---
Author Organization [facility] Address [address] [place] [address] Care Team Providers Care Geophysical Prospector Name Role Phone Jada Satnana MD Primary Care Provider [phone] Natasha Toney APRN Unavailable [phone] Edy Davis MD Unavailable Reason for Referral * Gastroenterology (Routine) - Authorized Specialty Diagnoses / Procedures Referred By Contac t Referred To Contact Gastroenterology Diagnoses Gastroesophageal reflux disease, unspecified whether esophagitis present Jada Santana MD [address] [place] [address] Edy Davis MD [address] [place] [address] Referral ID Status Reason Start Date Expiration Date V isits Requested Visits Authorized [id number] Authorized Consult 06/07/2024 06/08/2025 1 1 Question Answer Select Referral Type: Consult Encounter Details Date Type Department Care Team (Late st Contact Info) Description 06/07/2024 Orders Only [address] [place] [phone] Jada Santana MD [address] [place] [address] Gastroesophageal reflux disease, unspecified whether esophagitis present (Primary Dx) Social History Tobacco Use Types Packs/Day Years Used Date Smoking Tobacco: Never Smokeless Tobacco: Never Alcohol Use Standard Drinks/Week Comments Yes 0 (1 standard drink = 0.6 oz pur e alcohol) Once a month (two) [facility] Utilities Answer Date Recorded In the past [...] and Family Not on file 05/25/2024 Attends Worship Services Not on file 05/25 Active Member [...] any time in the past 12 m [facility], were you homeless or living in a prison (including now)? No 05/25/2024 Education Answer Date [...] Primary documented in this encounter Care Teams Geophysical Prospector Relationship Specialty Start Date End Date Jada Santana MD [address] [place] [address] PCP - General Internal Medicine 05/26/24 Natasha Toney APRN [address] [place] [address] Referring Provider 06/06/24 Edy Davis MD [address] [place] [address] Internal Medicine 06/07/24 documented as of this encounter
--- OUTSIDE RECORDS SUMMARY | 2024-06-23 08:36 | XMS_ITS | Encounter Summary ---
Author Organization [facility] Address [address] [place] [address] Care Team Providers Care Knot Tying Operator Name Role Phone Jada Santana MD Primary Care Provider [phone] Encounter Details Date Type Department Care Team (Latest Contact Info) Description 05/26/2024 Travel Social History Tobacco Use Types Packs/Day Years Used Date Smoking Tobacco: Never Smokeless Tobacco: Never Alcohol Use Standard Drinks/Week Comments Yes 0 (1 standard drink = 0.6 oz pur e alcohol) Once a month (two) [facility] Utilities Answer Date Recorded In the past 12 months has [employer], gas, oil, or water [employer] threatened to shut off services in your home? No 05/25/2024 Social Connection and Isolation Panel [NHANES] A nswer Date Recorded In a typical week, how many times do you talk on the phone with family, friends, or neighbors? Three times a week 05/25/2024 Frequency of Social Gatherin gs with Friends and Family Not on file 05/25/2024 Attends Pentecostal Services Not on file 05/25 Active Member [...] any time in the past 12 m [facility], were you homeless or living in a penitentiary (including now)? No 05/25/2024 Education Answer Date [...] on filedocumented in this encounter Care Teams Knot Tying Operator Relationship Specialty Start Date End Date Jada Santana MD [address] [place] [address] PCP - General Internal Medicine 05/26/24 documented as of this encounter
--- OUTSIDE RECORDS SUMMARY | 2024-06-23 08:36 | XMS_ITS | Clinical Summary ---
Author Organization [employer] Address [address] [facility] 7t [place] [address] Care Team Providers Care Lining Parts Sewer Name Role Phone Unavailable Primary Care Provider Unavailabl e Social History Tobacco Use Types Packs/Day Years Used Date Smoking Tobacco: Never Assessed Comments Unknown Sex and Gender Information Value Date Recorded Sex Assigned at Not on file Legal Sex Female 11:49 AM EDT Gender Identity Not on file Sexual Orientation Not on file Plan of Treatment Health Maintenance Due Date Last Done Comments CT Colonography 1952 Colonoscopy 1952 Colorectal Cancer Screening 1952 Depression Screening 1950 FIT DNA/Cologuard 1952 FIT 1952 FOBT 1950 SDOH Screening 1950 Sigmoidoscopy 1952 Alcohol/Substance Use Screening 1964 Tobacco Screening 1964 Hepatitis C Screening 02/11/1970 Mammogram 1992 Pneumococcal Vaccine: 50+ Years (1 of 1 - PCV) 02/11/2002 DTaP/Tdap/Td Vaccines (1 - Tdap) 06/28/2019 06/27/2019, 06/04/2010 Zoster Vaccines (2 of 2) 03/22/2023 01/25/2023 COVID-19 Vaccine (3 - 2023-2 5 season) 2023 07/23/2020, 06/24/2020 Influenza Vaccine (#1) 2023 2, 04/11/2021, 03/06/2019 RSV Patients and Patients Aged 60 years or older (1 - 1-dose 75+ series) 02/11/2027 HIB Vaccines Aged Out No longer eligi [...] patient's age to complete this topic Meningococcal Vaccine Aged Out No dedra lucinda eligible based on patient's age to complete this topic RSV under 20 months Aged Out No longe r eligible based on patient's age to complete this topic Rotavirus Vaccines Aged Out No longer eligible based on patient's age to complete this topic Insurance [facility]
--- OUTSIDE RECORDS SUMMARY | 2024-06-23 08:36 | XMS_ITS | Encounter Summary ---
Author Organization [facility] Address [address] [place] [address] Care Team Providers Care Supervisor Wall Mirror Department Name Role Phone Jada Santana MD Primary Care Provider [phone] Reason for Visit * Reason Comments Establish Care Encounter Details Date Type Department Care Team (Latest Contact Info) Description 05/26/2024 10:00 AM EST Office Visit [address] [phone] Jada Santana MD [address] [place] [address] Encounter to establish care (Primary Dx); Gastroesophageal [...] pur e alcohol) Once a month (two) [facility] Utilities Answer Date Recorded In the past 12 months has [employer], gas, oil, or water [employer] threatened to shut off services in your home? No 05/25/2024 Social Connection and Isolation Panel [NHANES] A nswer Date Recorded In a typical week, how many times do you talk on the phone with family, friends, or neighbors? Three times a week 05/25/2024 Frequency of Social Gatherin gs with Friends and Family Not on file 05/25/2024 Attends Mandaeism Services Not on file 05/25 Active Member [...] any time in the past 12 m [facility], were you homeless or living in a skilled nursing (including now)? No 05/25/2024 Education Answer Date [...] - 05/26/2024 10:58 AM EST Please have [place] lab work sent to me. Please see Dr. Davis. * Attachments The following attachments cannot be sent through Care Everywhere. * Food Choices for Gastroesophageal Reflux Disease Adult ([place]an) * Gastroesophageal Reflux Disease Adult ([place]kinan) documented in this encounter Progress Notes * [...] 3. Tremor Consider TSH. Patient to send [place] lab results to me for review as a next step before I order lab work. 4. Hyperlipidemia, unspecified hyperlipidemia type Consider fasting lipid panel after review of recently obtained labs at [facility] which are not presently available to me. 5. Osteoporosis, unspecified osteoporosis type, unspecified pathological fracture presence Await June 13 DEXA study results. Consider vitamin D level once [place] labs available for review. Patient understands and agrees with the plan of care. Patient Instructions Please have [place] lab work sent to me. Please see [...] care. Last PCP was Dr. Hurley at [facility]. Shestates that she saw that provider twice [...] was approximately [address] Davsi. Patient states that she feels shaky and off today. She was up at midnight and 3 AM last night. Denies dizziness. Feels anxious. Drinks 1 cup of tea in the morning. Occasionally has coffee at work about 3 days a week. She saw a onsite health coach in [place] about [address] Lucas. She had lab work for the onsite health coach through [facility] lab. Results not available to me. 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 Pertinent History: The patient's past medical, surgical, social, and family history were all reviewed and updated as appropriate. Patient reports a history of PTSD. Experienced the of siblings and had a horrible . Brother of an [place] and abused cocaine and alcohol. Younger brother [...] person, place, and time. Comments: No tremor. [id number] intact. Psychiatric: Behavior: Behavior normal. Disclaimer: [employer] voice-recognition is used to prepare this typewritten [...] presence documented in this encounter Care Teams Supervisor Wall Mirror Department Relationship Specialty Start Date End Date Jada Santana MD [address] [place] [address] PCP - General Internal Medicine 05/26/24 documented as of this encounter
--- OUTSIDE RECORDS SUMMARY | 2024-06-23 08:36 | XMS_ITS | Clinical Summary ---
Author Organization [facility] Address 175 [place] [address] Phone Care Team Providers Care Resort Host Name Role Phone Jada Santana MD Primary Care Provider [phone] Allergies Active Allergy Reactions Criticality Noted Date Comments Lisinopril Cough 01/31/2019 Sulfadiazine 01/16/2019 Other Reaction(s): Rash/Dermatitis No reaction documented. Medications alendronate (FOSAMAX) 70 mg tablet TAKE 1 TABLET BY MOUTH EVERY WEEK 05/06/2022 Active atorvastatin (LIPITOR) 20 mg tablet TAKE 1 TABLET BY MOUTH EVERY DAY 01/03/2024 Active buPROPion XL (WELLBUTRIN XL) 150 mg 24 hr tablet TAKE 1 TABLET BY MOUTH EVERY MORNING 10/12/2023 Active busPIRone (BUSPAR) 5 mg tablet Take 1 Tablet by mouth 2 Times Daily. 08/05/2023 Active cholecalciferol (VITAMIN D-3) 25 mcg (1,000 unit) capsule Take 1 Cap by mouth daily. Active cloNIDine (CATAPRES) 0.1 mg tablet Take 1 Tablet by mouth daily. 10/03/2023 Active estradioL (ESTRACE) 0.01 % (0.1 mg/gram) vaginal cream Please use a pea-sized amount on your finger and place inside the vagina twice a week at night (Mondays and ) 02/21/2024 03/16/20 Active gabapentin (NEURONTIN) 100 mg capsule TAKE 1 CAPSULE BY MOUTH EVERYDAY AT BEDTIME 02/09/2024 Active melatonin 3 mg tablet Take 1 Tab by mouth at bedtime as needed. Active omeprazole (PriLOSEC) [address] capsule Take 1 Capsule by mouth daily. 02/09/2024 Active solifenacin (VESICARE) 5 mg tablet Take 1 Tablet by mouth daily. 02/21/2024 Active Active Problems Problem Noted Date Diagnosed Date Arthritis of both knees 11/10/2023 Positive FREDY (antinuclear antibody) 12/17/2020 Overview (06/16/2024): Titer 1:1280, speckeled Anxiety 01/16/2019 Cervical lymphadenopathy 01/16/2019 Depression 01/16/2019 GERD (gastroesophageal reflux disease) 9 Hyperlipidemia 01/16/2019 Insomnia 01/16/2019 Osteoarthritis 01/16/2019 Overview (06/16/2024): Hands and knees. Osteoporosis 01/16/2019 Tubular adenoma 01/16/2019 Ulcerative colitis 01/16/2019 Overview (06/16/2024): Proctitis by colonoscopy 04/2019 Encounters Date Type Department Care Team Description 06/09/2024 Telephone Gastroenterology - [place] [address] [facility] [address] [facility] [address] [place] [address] Edy Davis MD Appointment from Last 3 Months Immunizations Name Administration Dates Next Due COVID-19 Seasonal (Novavax) 12yo and older 01/25 Influenza trivalent, 0.5mL ( Fluad) 65yo and older 01/07/2022,04/11/2021,03/06/2019 Moderna SARS-CoV-2 COVID-19, mRNA, LNP-S, preservative free 07/23/2020,06/24/2020 Td Tetanus diptheria (Tdvax) 7yo and older 06/26,06/04/2010 Zoster recombinant (Shingrix ) 19yo and older 01/25/2023 Surgical History Surgery Date Site/Laterality Comments CHOLECYSTECTOMY 05/23/2014 PROCEDURE: HISTORICAL CHOLECYSTECTOMY COLONOSCOPY 05/22/2019 PROCEDURE: HISTORICAL COLONOSCOPY; COMMENT: Dr. Davis; proctitis, UC, bx CHOLECYSTECTOMY PROCEDURE: NV LAPAROSCOPY SURG CHOLECYSTECTOMY OTHER SURGICAL HISTORY Bilateral PROCEDURE: NV DILATION & CURETTAGE DX&/THER NONOBSTETRIC Medical History [...] Care Team (Late st Contact Info) Description 06/27/2024 8:45 AM EST Office Visit Gastroenterology - [place] [address] [facility] [address] [place] [address] Edy Davis MD [address] [facility] [address] [place] [address] 02/20/2025 8:30 AM EDT Office Visit [facility] [address] [place] [address] Adelina Magaña MD [address] [place] [address] Health Maintenance Due Date Last Done Comments Breast Cancer Screening 1950 Pneumococcal Vaccine: 50+ Years (1 of 1 - PCV) 02/11/2002 Depression Screening 03/29/2022 Falls Risk Assessment 03/29/2022 Medicare Annual Wellness Visit 03/29/2022 Social Influencers of Health Screening 03/29/2022 Zoster Vaccines (2 of 2) 03/22/2023 01/25/2023 COVID-19 Vaccine (4 - 2023-2 5 season) 2023 01/25/2023, 07/23/2020, 06/24/2020 Influenza Vaccine (#1) 2023 , 04/11/2021, 03/06/2019 Colorectal Cancer Screening: Colonoscopy 04/01/2026 04/01/2023 RSV Immunization Patients 60 + Years Old (1 - 1-dose 75+ series) 02/11/2027 Cholesterol Screening (Lipid Panel) 06/27/2028 06/28/2023 Osteoporosis Screening (Bone Density Screening) 06/21/2029 06/21/2019 DTaP,Tdap,and Td Vaccines (3 - Td or Tdap) 06/26/2029 06/27/2019, 06/04/2010 Hepatitis C Screening Completed 01/31/2019 HIB Vaccines Aged Out No longer eligi [...] Procedure Name Priority Date/Time Associated Diagnosis Comments LIPID PANEL Routine 06/28/2023 COLONOSCOPY Routine 04/01/2023 DXA BONE DENSITY STUDY 1+ SITS AXIAL SKEL Routine 06/21/2019 12:47 PM EST Encounter for screening for osteoporosis HEPATITIS C SCREENING Routine 01/31/2019 from Last 3 Months or Most Recently Relevant to Health Maintenance Results * (ABNORMAL) Lipid panel (06/28/2023) LDL/HDL Ratio 3 0 - 4 Triglycerides 156(A) 0 - 150 mg/dL Cholesterol 221(A) 0 - 200 mg/dL HDL 65 >=40 mg/dL LDL Cholesterol 125(A) 0 - 100 mg/dL Blood Venous blood specimen / Unknown us Historical Provider LAB BLOOD ORDERABLES Sharmaine l Result * Colonoscopy (04/01/2023) Colonoscopy negative, abstracted Anatomical Region Laterality Modality Other us Historical Provider HEALTH MAINTENANCE Final Result * DXA BONE DENSITY STUDY 1+ SITS [...] scores not able to be calculated. [facility] Department of Internal Medicine recommends using National [...] alternative screening schedule based on nakul Martinez., [facility] May 14, 2011 for patients with osteopenia [...] scores not able to be calculated. [facility] Department of Internal Medicine recommendsusing National Osteoporosis [...] alternative screening schedule based on nakul Martinez., NEJJanuary 2011 for patients with osteopenia (based on hip BMD T-score) is as follows: * advanced osteopenia (T scores -2.00 to -2.49), BMD testing every year * moderate osteopenia (T scores -1.50 to -1.99), BMD testing every 5years mild osteopenia or normal BMD (T scores -1.50 and higher), BMD testingevery 15 years Loida ZAZUETA IMG DXA PROCEDURES Final Resu lt * Hepatitis C Screening (01/31/2019) Pathologist [facility] Hepatitis C Screening abstracted us Historical Provider HEALTH MAINTENANCE Final Result from Last 3 Months or Most Recently Relevant to Health Maintenance Insurance [employer] MEDICARE Care Teams Resort Host Relationship Specialty Start Date End Date Jada Santana MD [address] [place] [address] PCP - General Internal Medicine 06/09/24
--- OUTSIDE RECORDS SUMMARY | 2024-06-23 08:36 | XMS_ITS | Encounter Summary ---
Author Organization [employer] Address [address] [facility] 7t [place] [address] Care Team Providers Care Automobile Brakes Bonder Name Role Phone Unavailable Primary Care Provider Unavailabl e Encounter Details Date Type Department Care Team (Late st Contact Info) Description 02/09/2024 Telephone [facility] [address] [place] [address] Graciela Vera NP [address] [place] [address] Social History Tobacco Use Types Packs/Day Years Used Date Smoking Tobacco: Never Assessed Comments Unknown Sex and Gender Information Value Date Recorded Sex Assigned at Not on file Legal Sex Female 11:49 AM EDT Gender Identity Not on file Sexual Orientation Not on file documented as of this encounter Miscellaneous Notes * Telephone Encounter - Teresita Bethea - 06/19/2024 1:37 PM EST Outgoing call to pt to book DEMO SPECIALIST appt. No answer. Left message. * Telephone Encounter - Juan Antonio Castanon - 02/09/2024 11:51 AM EDT Patient added to [facility] New Patient wait list as 02/09/2024 documented in this encounter Plan of Treatment Not on file documented as of this encounter Visit Diagnoses Not on filedocumented in this encounter
--- OUTSIDE RECORDS SUMMARY | 2024-06-23 08:36 | XMS_ITS | Encounter Summary ---
Author Organization [facility] Address [address] [place] [address] Care Team Providers Care Web Site Developer Name Role Phone Jada Santana MD Primary Care Provider [phone] Reason for Visit * Reason Onset Date Comments Appointment 06/09/2024 Encounter Details Date Type Department Care Team ([facility] st Contact Info) Description 06/09/2024 Telephone Gastroenterology - [place] [address] [facility] [address] [place] [address] Edy Davis MD [address] [place], [place] [id number] Appointment Social History Tobacco Use Types Packs/Day [...] encounter Progress Notes * Melinda Jacobo - 06/20/2024 11:18 AM EST Scheduled by Delia on 06/15 * Melinda Jacobo - 06/14/2024 2:13 PM EST 2nd attempt to reach patient to schedule appointment. Left message to call back. Placed back in called accordion. * Melinda Jacobo - 06/09/2024 10:39 AM [...] 8:45 AM EST Office Visit Gastroenterology - [place] 175 [facility] 175 [facility] [address] [place] [phone] Edy Davis MD 175 [facility] [address] [place] [address] 02/20/2025 8:30 AM EDT Office Visit Urogynecology [facility] [address] [place] [address] Adelina Magaña MD [address] [facility] [address] [place] [address] documented as of this encounter Visit Diagnoses Not on filedocumented in this encounter Care Teams Web Site Developer Relationship Specialty Start Date End Date Jada Santana MD [address] [place] [address] PCP - General Internal Medicine 06/09/24 documented as of this encounter
--- OUTSIDE RECORDS SUMMARY | 2024-06-23 08:36 | XMS_ITS | Encounter Summary ---
Author Organization [facility] Address [address] [place] [address] Care Team Providers Care Wastewater Process Engineer Name Role Phone Jada Santana MD Primary Care Provider [phone] Natasha Toney APRN Unavailable [phone] Edy Davis MD Unavailable Encounter Details Date Type Department Care Team (Late st Contact Info) Description 05/26/[address] [place] [address] Jada Santana MD [address] [place] [address] Social History Tobacco Use Types Packs/Day Years Used Date Smoking Tobacco: Never Smokeless Tobacco: Never Alcohol Use Standard Drinks/Week Comments Yes 0 (1 standard drink = 0.6 oz pur e alcohol) Once a month (two) [facility] Utilities Answer Date Recorded In the past 12 months has [employer], gas, oil, or water [employer] threatened to shut off services in your [...] time in the past 12 m [facility], were you homeless or living in a longterm (including now)? No 05/25/2024 Education Answer Date [...] Miscellaneous Notes * Telephone Encounter - Lesley Fitzpatrcik - 06/08/2024 9:54 AM EST Vm left again for patient * Telephone Encounter - Jada Santana MD - 06/07/2024 3:33 PM EST Patient has not yet read your [employer] message about scheduling her follow-up appointment. Please follow-up with patient. Jada Santana MD * Telephone Encounter - Lelsey Fitzpatrick - 05/26/2024 11:52 AM EST Vm left and my chart sent documented in this encounter Plan of Treatment Not on file documented as of this encounter Visit Diagnoses Not on filedocumented in this encounter Care Teams Wastewater Process Engineer Relationship Specialty Start Date End Date Jada Santana MD [address] [place] [address] PCP - General Internal Medicine 05/26/24 Natasha Toney APRN [address] [place] [address] Referring Provider 06/06/24 Edy Davis MD [address] [address] Internal Medicine 06/07/24 documented as of this encounter
--- OUTSIDE RECORDS SUMMARY | 2024-06-23 08:36 | XMS_ITS | Clinical Summary ---
Author Organization [employer] Address [address] [place] [address] Care Team Providers Care Oil Tank Car Cleaner Name Role Phone Unavailable Primary Care Provider [...] Adults 18 yrs or above (or HM Modifier)([facility]) 02/11/1970 Hepatitis C Virus Infection in Adolescents and Adults: Screening (or Modifier) ([facility]) 02/11/1970 SDOH Screening Reminder: Jennifer moffett for all adults ([facility]) 02/11/1970 Tobacco Smoking Cessation: i n Adults excluding Women: Behavioral and Pharmacotherapy Interventions ([facility]) 02/11/1970 DTaP/Tdap/Td Vaccines ([facility]) (1 - Tdap) 02/11/1971 Colorectal Cancer Screening 45 -75 Yrs (or HM Modifier) 02/11/1997 Colorectal Cancer: FLEXIBLE SIGMOIDOSCOPY Screening every 5 yrs 02/11/1997 Colorectal Cancer: Fecal Imm unochemical Test (FIT) Annually [facility] 02/11/1997 Colorectal Cancer: High-sens itivity gFOBT Screening Annually [facility] 02/11/1997 Colorectal Cancer: Stool Col oguard Screening every 3 yrs 02/11/1997 Colorectal Cancer:CT Colonog gaye Screening every 5 yrs 02/11/1997 Lipid Screening: Every 5 yrs for Women aged 45+ (or HM Modifier) ([facility]) 02/11/1998 Breast Cancer: Screening Jennifer zuhair age 50-74 yrs (or HM Modifier)([facility]) 02/11/2002 Zoster/Shingles Vaccine Seri es Screening: Adults aged 18+ yrs (or HM Modifiers)([facility]) (1 of 2) 02/11/2002 Osteoporosis Screening to Pr event Fractures: Women aged 65 years+ ([facility]) 02/11/2017 Pneumococcal Vaccination Scr eening: Patients 65+ yrs of age ([facility]) (1 of 1 - PCV) 02/11/2017 Flu Vaccination: Ages 65+: Y early High Dose Recommended (or Modifier)([facility]) 11/25/2023 03/06/2019 COVID-19 Vaccine Screening: Initial Series and Booster Status ([facility]) ( - season) 2023 07/23/2020, 06/24/2020 RSV Vaccines (1 - 1-dose 75+ series) 02/11/2027 Medical Devices Not on file Insurance [employer] MEDICARE
== END 2024-06-23 09:05 | disposition home or self-care (01) ==
PROVIDERS: PCP Internal Medicine; Visit Provider Student in an Organized Health Care Education/Training Program
DX: M81.0 Age-related osteoporosis without current pathological fracture (principal); M19.041 Primary osteoarthritis, right hand; M19.042 Primary osteoarthritis, left hand; R76.8 Other specified abnormal immunological findings in serum; Z51.81 Encounter for therapeutic drug level monitoring; Z79.620 Long term (current) use of immunosuppressive biologic
CPT/HCPCS: 99213; G2211

== ENCOUNTER → 2024-06-23 08:26 | Outpatient (BNVA) | payer MEDICARE, SELFPAY | PROVIDERS: PCP Internal Medicine; Visit Provider Student in an Organized Health Care Education/Training Program | DX: M81.0 Age-related osteoporosis without current pathological fracture (principal); M19.041 Primary osteoarthritis, right hand; M19.042 Primary osteoarthritis, left hand; R76.8 Other specified abnormal immunological findings in serum; Z79.620 Long term (current) use of immunosuppressive biologic | CPT/HCPCS: 99212 ==

== ENCOUNTER 2024-07-07 09:30 | Outpatient (REF) | payer MEDICARE, SELFPAY ==
[2024-07-07 10:17] LABS: MANUAL DIFF FLAG NO
[2024-07-07 10:20] LABS: Basophils Absolute Auto 0.1 X10*3/uL (0.0-0.2); Basophils Percent Auto 0.8 % (0-2); Eosinophils Absolute Auto 0.2 X10*3/uL (0.0-0.4); Hematocrit 38.9 % (37.0-47.0); Hemoglobin 12.6 g/dl (12.0-16.0); Imm Gran Abs Auto 0.03 X10*3/uL (0.00-0.03); Imm Gran Pct Auto 0.4 % (0.0-0.4); Lymphocytes Absolute Auto 1.7 X10*3/uL (1.2-4.9); Mean Corpuscular HGB Conc 32.4 g/dl (31.0-35.0); Mean Corpuscular Hemoglobin 31.8 pg (27.0-33.0); Mean Corpuscular Volume 98.2 fL (80.0-98.0); Mean Platelet Volume 9.3 fL (9.4-12.3); Monocytes Absolute Auto 0.6 X10*3/uL (0.1-1.2); Neutrophils Absolute Auto 4.9 x10*3/uL (2.0-8.3); Neutrophils Percent Auto 65.8 % (45-73); Platelet Count 243 X10*3/uL (160-400); Red Blood Count 3.96 X10*6/uL (4.20-5.50); Red Cell Distribution Width 14.2 % (11.0-16.0); White Blood Count 7.5 X10*3/uL (4.8-10.8)
--- OUTSIDE RECORDS SUMMARY | 2024-07-07 10:24 | XMS_ITS | Encounter Summary ---
Author Organization [facility] Address [address] [place] [address] Care Team Providers Care Roustabout Hand Name Role Phone Jason Hurley MD Primary Care Provider [phone] Tiburcio Garsia Unavailable Unavailable Natasha Toney APRN Unavailable Unavailable Encounter Details Date Type Department Care Team Description 03/05/2022 Rag Room Supervisor Report Medical Records [address] [place] [id number] Justyn Martínez MD Social History Tobacco Use Types Packs/Day Years Used Date Smoking Tobacco: Never Smokeless Tobacco: Never Alcohol Use Standard Drinks/Week Comments No 0 (1 standard drink = 0.6 oz pur e alcohol) Alcohol Habits Answer Date Recorded How often do you have a drink containing alcohol ? Monthly or less 10/07/2023 How many drinks containing a lcohol do you have on a typical day when you are drinking? 1 or 2 10/07/2023 How often do you have six or more drinks on one occasion? Never 10/07/2023 Social Isolation Answer Date Recorded In a typical week, how many times do you talk on the phone with family, friends, or neighbors? More than three times a week 10/07/2023 How often do you get togethe r with friends or relatives? More than three times a week 10/07/2023 How often do you attend up health system or muslim services? Never 10/07/2023 Do you belong to any clubs o r organizations such as yarsanism groups, unions, fraternal or athletic groups, or school groups? No 10/07/2023 How often do you attend meet ings of the clubs or organizations you belong to? Never 10/07/2023 Are you now , , , , never or living with a partner? 10/07/2023 Physical Activity Answer Date Recorded On average, how many days pe r week do you engage in moderate to strenuous exercise (like walking fast, running, jogging, dancing, swimming, biking, or other activities that cause a light or heavy sweat)? 0 days 10/07/2023 On average, how many minutes do you engage in exercise at this level? 0 min 10/07/2023 Stress Answer Date Recorded Do you feel stress - tense, restless, nervous, or anxious, or unable to sleep at night because your mind is troubled all the time - these days? To some extent 10/07/2023 Financial Resource Strain Answer Date R ecorded How hard is it for you to pa y for the very basics like food, housing, medical care, and heating? Not hard at all 10/07/2023 Intimate Partner Violence Answer Date R ecorded Within the last year, have y ou been afraid of your partner or ex-partner? No 10/07/2023 Within the last year, have y ou been humiliated or emotionally abused in other ways by your partner or ex-partner? No Within the last year, have y ou been kicked, hit, slapped, or otherwise physically hurt by your partner or ex-partner? No 10/07/2023 Within the last year, have y ou been raped or forced to have any kind of sexual activity by your partner or ex-partner? No 10/07/2023 Food Insecurity Answer Date Recorded Within the past 12 months, y ou worried that your food would run out before you got money to buy more. Never true 10/07/2023 Within the past 12 months, t he food you bought just didn't last and you didn't have money to get more. Never true 10/07/2023 Transportation Needs Answer Date Record ed In the past 12 months, has l ack of transportation kept you from medical appointments or from getting medications? No 09/24 In the past 12 months, has l ack of transportation kept you from meetings, work, or getting things needed for daily living? No 10/07/2023 Housing Stability Answer Date Recorded In the last 12 months, was t here a time when you were not able to pay the mortgage or rent on time? No 10/07/2023 In the last 12 months, how many places have you lived? 1 10/07/2023 In the last 12 months, was t here a time when you did not have a steady place to sleep or slept in a mcc (including now)? No 10/07/2023 Sex Assigned at Date Recorded Female 03/10/2019 7:[address] Job Start Date Occupation Industry Not on file Not on file Not on file documented as of this encounter Plan of Treatment Not on file documented as of this encounter Visit Diagnoses Not on filedocumented in this encounter Care Teams Roustabout Hand Relationship Specialty Start Date End Date Jason Hurley MD [address] [facility] [facility] [address] [place] [address] PCP - General Internal Medicine 03/31/21 Tiburcio Garsia [address] [facility] [place] [address] Dermatology 06/11/22 Natasha Toney APRN [address] [place] [address] Internal Medicine 10/07/23 documented as of this encounter
--- OUTSIDE RECORDS SUMMARY | 2024-07-07 10:24 | XMS_ITS | Encounter Summary ---
Author Organization [facility] Address [address] [place] [address] Care Team Providers Care Meat Service Team Member Name Role Phone Jason Hurley MD Primary Care Provider [phone] Tiburcio Garsia Unavailable Unavailable Natasha Toney APRN Unavailable Unavailable Reason for Visit * Reason Onset Date Comments medication problems 03/17/2022 Sertraline Encounter Details Date Type Department Care Team Description 03/17/2022 Telephone Adult Medicine [facility] [address] [place] [address] Jason Hurley MD [address] [place] [address] medication problems (Sertraline) Social History Tobacco Use Types Packs/Day Years [...] week 10/07/2023 How often do you attend chur or judaism services? Never 10/07/2023 Do you belong to any clubs o r organizations such as catholic groups, unions, fraternal or athletic groups, or [...] place to sleep or slept in a senior living (including now)? No 10/07/2023 Sex Assigned at Date Recorded Female 03/10/2019 7:[address] Job Start Date Occupation Industry Not on file Not on file Not on file COVID-19 Exposure Response Date Recorded In the last 10 days, have fadi u been in contact with someone who was confirmed or suspected to have Coronavirus/COVID-19? No / Unsure 03/09/2022 9:08 AM EST documented as of this encounter Miscellaneous Notes * Telephone Encounter - Anjelica To M.A. - 03/17/2022 2:43 PM EST Tablets send yesterday to pharmacy * Telephone Encounter - Tamiko Rowley - 03/17/2022 2:40 PM EST What is the name of the medication patient is having a problem with?: Sertraline What is the problem?: Capsules not covered Is the patient calling about the problem? NO If the patient is not the caller who is? [facility] Is this a NEW medication?: NO How long has the patient been taking this medication? Who prescribed this medication for the patient? Anusha Ross Who is patients PCP?: Jason Hurley Payor: [facility] / Plan: AARP MEDICARE COMPLETE $0 [id number] / Product Type: HMO [id number] documented in this encounter Plan of Treatment Not on file documented as of this encounter Visit Diagnoses Not on filedocumented in this encounter Care Teams Meat Service Team Member Relationship Specialty Start Date End Date Jason Hurley MD [address] [place] [address] PCP - General Internal Medicine 03/31/21 Tiburcio Garsia [address] [place] [address] Dermatology 06/11/22 Natasha Toney APRN [address] [place] [address] Internal Medicine 10/07/23 documented as of this encounter
--- OUTSIDE RECORDS SUMMARY | 2024-07-07 10:24 | XMS_ITS | Clinical Summary ---
Author Organization [address] [facility] Address [address] [place] [address] Phone Care Team Providers Care Associate Application Developer Name Role Phone Jada Santana MD Primary Care Provider [phone] Allergies Active Allergy Reactions Criticality Noted Date [...] Active omeprazole (PriLOSEC) [address] capsule 2 (two) times a day before meals. 02/09/2024 Active solifenacin (VESICARE) 5 mg tablet Take 1 Tablet by mouth daily. 02/21/2024 Active diclofenac (VOLTAREN) 1 % topical gel 4 (four) times a day. 06/23/2024 Active Active Problems Problem Noted Date Diagnosed Date Post-nasal drip 06/27/2024 Arthritis of both knees 11/10/2023 Positive FREDY (antinuclear antibody) 12/17/2020 Overview (06/16/2024): Titer 1:1280, speckeled Anxiety 01/16/2019 Cervical lymphadenopathy 01/16/2019 Depression 01/16/2019 GERD (gastroesophageal reflux disease) 9 Hyperlipidemia 01/16/2019 Insomnia 01/16/2019 Osteoarthritis 01/16/2019 Overview (06/16/2024): Hands and knees. Osteoporosis 01/16/2019 Tubular adenoma 01/16/2019 Ulcerative colitis 01/16/2019 Overview (06/16/2024): Proctitis by colonoscopy 04/2019 Encounters Date Type Department Care Team Description 06/27/2024 8:45 AM EST Office Visit Gastroenterology [address] [address] Edy Davis MD Gastroesophageal reflux disease without esophagitis (Primary Dx); Ulcerative proctitis without complication (CMS/HCC); Tubular adenoma; Post-nasal drip 06/09/2024 Telephone Gastroenterology [facility] [address] [address] Edy Davis MD Appointment from Last [...] Dr. Davis; proctitis, UC, bx CHOLECYSTECTOMY PROCEDURE: HI LAPAROSCOPY SURG CHOLECYSTECTOMY OTHER SURGICAL HISTORY Bilateral PROCEDURE: HI DILATION & CURETTAGE DX&/THER NONOBSTETRIC Medical History [...] Reading Time Taken Comments Blood Pressure 128/78 06/27/2024 8:53 AM EST Pulse 76 06/27/2024 8:53 AM EST Temperature - - Respiratory Rate - - Oxygen Saturation - - Inhaled Oxygen Concentration - - Weight 68 kg (150 lb) 06/27/2024 8:53 AM EST Height 167.6 cm (5' 6 ) 06/27/2024 8:53 AM EST Body Mass Index 24.21 06/27/2024 8:53 AM EST Plan of Treatment Upcoming Encounters Date Type Department Care Team (Late st Contact Info) Description 02/20/2025 8:30 AM EDT Office Visit Urogynecology - [place] [address] [place] [address] Adelina Magaña MD [address] [facility] [address] [place] [address] Health Maintenance Due Date Last Done Comments Breast Cancer Screening 1950 Pneumococcal Vaccine: 50+ Years (2 of 2 - PPSV23) 01/04/2021 01/05/2020 Depression Screening 03/29/2022 Falls Risk Assessment 03/29/2022 Medicare Annual Wellness Visit 03/29/2022 Social Influencers of Health Screening 03/29/2022 Zoster Vaccines (2 of 2) 03/22/2023 01/25/2023 Colorectal Cancer Screening: Colonoscopy 04/01/2026 04/01/2023 RSV Immunization Patients 60+ Years Old (1 - 1-dose 75+ series) 02/11/2027 Cholesterol Screening (Lipid Panel) 06/27/2028 06/28/2023 Osteoporosis Screening (Bone Density Screening) 06/21/2029 06/21/2019 DTaP,Tdap,and Td Vaccines (3 - Td or Tdap) 06/26/2029 06/27/2019, 06/04/2010 Hepatitis C Screening Completed 01/31/2019 COVID-19 Vaccine Completed 01/01/2024, 05/2022, 02/18/2022, Additional history exists Influenza Vaccine Completed 01/01/2024, , 04/11/2021, Additional history exists HIB Vaccines Aged Out No longer eligi [...] 20 months Aged Out No longer eligible based on [...] ORDERABLES Sharmaine l Result * Colonoscopy (04/01/2023) Pathologist [facility] Colonoscopy negative, abstracted Anatomical Region Laterality Modality [...] scores not able to be calculated. [facility] Department of Internal Medicine recommends using [...] alternative screening schedule based on nakul Martinez., [facility] May 14, 2011 for patients with [...] scores not able to be calculated. [facility] Department of Internal Medicine recommendsusing National [...] Resu lt * Hepatitis C Screening (01/31/2019) Hepatitis C Screening abstracted Historical Provider MD HEALTH MAINTENANCE Final Result from Last 3 Months or Most Recently Relevant to Health Maintenance Insurance [employer] MEDICARE Care Teams Associate Application Developer Relationship Specialty Start Date End Date Jada Santana MD [address] [place] [address] PCP - General Internal Medicine 06/09/24
--- OUTSIDE RECORDS SUMMARY | 2024-07-07 10:24 | XMS_ITS | Clinical Summary ---
Author Organization [employer] Address [address] [place] [address] Care Team Providers Care Insect Control Aide Name Role Phone Unavailable Primary Care Provider [...] Adults 18 yrs or above (or HM Modifier)([facility]) 02/11/1970 Hepatitis C Virus Infection in Adolescents and Adults: Screening (or Modifier) ([facility]) 02/11/1970 SDCT Screening Reminder: Jennifer moffett for all adults ([facility]) 02/11/1970 Tobacco Smoking Cessation: i n Adults excluding Women: Behavioral and Pharmacotherapy Interventions ([facility]) 02/11/1970 DTaP/Tdap/Td Vaccines ([facility]) (1 - Tdap) 02/11/1971 Colorectal Cancer Screening 45 -75 Yrs (or HM Modifier) 02/11/1997 Colorectal Cancer: FLEXIBLE SIGMOIDOSCOPY Screening every 5 yrs 02/11/1997 Colorectal Cancer: Fecal Imm unochemical Test (FIT) Annually [facility] 02/11/1997 Colorectal Cancer: High-sens itivity gFOBT Screening Annually [facility] 02/11/1997 Colorectal Cancer: Stool Col oguard Screening every 3 yrs 02/11/1997 Colorectal Cancer:CT Colonog gaye Screening every 5 yrs 02/11/1997 Lipid Screening: Every 5 yrs for Women aged 45+ (or HM Modifier) ([facility]) 02/11/1998 Breast Cancer: Screening Jennifer zuhair age 50-74 yrs (or HM Modifier)([facility]) 02/11/2002 Pneumococcal Vaccination Scr eening: Patients 65+ yrs of age ([facility]) (1 of 1 - PCV) 02/11/2002 Zoster/Shingles Vaccine Seri es Screening: Adults aged 18+ yrs (or HM Modifiers)([facility]) (1 of 2) 02/11/2002 Osteoporosis Screening to Pr event Fractures: Women aged 65 years+ ([facility]) 02/11/2017 Flu Vaccination: Ages 65+: Y early High Dose Recommended (or Modifier)([facility]) 11/25/2023 03/06/2019 COVID-19 Vaccine Screening: Initial Series and Booster Status ([facility]) ( - season) 2023 07/23/2020, 06/24/2020 RSV Vaccines (1 - 1-dose 75+ series) 02/11/2027 Medical Devices Not on file Insurance [employer] MEDICARE
--- OUTSIDE RECORDS SUMMARY | 2024-07-07 10:24 | XMS_ITS ---
Author Name [facility] Encounters Encounter Type Encounter Reason Primary Diagnosis Location Date Ambulatory Persons encountering health services in other specified circumstances Persons encountering health services in other specified circumstances [employer] 05/26/2024 Care Team Organization Name Specialty Phone Email Start Date End Da te [place] [facility] Jada Santana Primary Care 06/12/2024 [place] [facility] Jada Santana Primary Care 05/26/2024 [place] [facility] NO PCP Primary Care 02/09/2024
--- OUTSIDE RECORDS SUMMARY | 2024-07-07 10:24 | XMS_ITS | Encounter Summary ---
Author Organization [facility] Address [address] [place] [address] Care Team Providers Care Revit Drafter Name Role Phone Wellington Cowan MD Primary Care Provider Melissa vailaJennifer Rodriguez MD Primary Care Provider Melissa vailable Jason Hurley MD Primary Care Provider [phone] Tiburcio Garsia Unavailable Unavailable Natasha Toney APRN Unavailable Unavailable Encounter Details Date Type Department Care Team Description 05/24/2014 Hospital Medical Records [address] [place] [address] Abstract, Provider Social History Tobacco Use Types Packs/Day Years Used Date Smoking Tobacco: Never Smokeless Tobacco: Never Alcohol Use Standard Drinks/Week Comments No 0 (1 standard drink = 0.6 oz pur e alcohol) occasional Alcohol Habits Answer Date Recorded How often [...] week 10/07/2023 How often do you attend [facility] or catholic services? Never 10/07/2023 Do you belong to any clubs o r organizations such as holiness groups, unions, fraternal or athletic groups, or [...] place to sleep or slept in a m[facility]p (including now)? No 10/07/2023 Sex Assigned at Date Recorded Female 03/10/2019 7:[address] Job Start Date Occupation Industry Not on file Not on file Not on file documented as of this encounter Plan of Treatment Not on file documented as of this encounter Visit Diagnoses Not on filedocumented in this encounter Care Teams Revit Drafter Relationship Specialty Start Date End Date Wellington Cowan MD PCP - General 11/23/1997 01/10/19 Jennifer Keller MD PCP - General Internal Medicine 01/11/19 1 Jason Hurley MD [address] [place] [address] PCP - General Internal Medicine 03/31/21 Tiburcio Garsia [address] [place] [address] Dermatology 06/11/22 Natasha Toney APRN [address] [place] [address] Internal Medicine 10/07/23 documented as of this encounter
--- OUTSIDE RECORDS SUMMARY | 2024-07-07 10:24 | XMS_ITS | Encounter Summary ---
Author Organization [employer] Address [address] [facility] [address] [place] [address] Care Team Providers Care Regional Vice President Life Sales Name Role Phone Unavailable Primary Care Provider Unavailabl e Encounter Details Date Type Department Care Team (Late st Contact Info) Description 02/09/2024 Telephone [facility] MEDICINE [address] [place] [address] Graciela Vera NP [address] [place] [address] Social History Tobacco Use Types Packs/Day Years [...] EST Outgoing call to pt to book FULFILLMENT ASSOCIATE appt. No answer. Left message. * Telephone Encounter - Juan Antonio Castanon - 02/09/2024 11:51 AM EDT Patient added to [facility] New Patient wait list as 02/09/2024 documented in this encounter Plan of Treatment Not on file documented as of this encounter Visit Diagnoses Not on filedocumented in this encounter
--- OUTSIDE RECORDS SUMMARY | 2024-07-07 10:24 | XMS_ITS | Encounter Summary ---
Author Organization [facility] Address [address] [place] [address] Care Team Providers Care Reed Repairer Name Role Phone Jennifer Keller MD Primary Care Provider Melissa vailable Jason Hurley MD Primary Care Provider [phone] Tiburcio Garsia Unavailable Unavailable Natasha Toney APRN Unavailable Unavailable Encounter Details Date Type Department Care Team Description 05/12/2019 Refill Gastroenterology - [address] [place] [address] Milagro Tuttle DScPAS Social History Tobacco Use Types Packs/Day Years [...] 10/07/2023 How often do you attend chur ch or amish services? Never 10/07/2023 Do you belong to any clubs o r organizations such as mu-ism groups, unions, fraternal or athletic groups, or [...] place to sleep or slept in a longterm (including now)? No 10/07/2023 Sex Assigned at Date Recorded Female 03/10/2019 7:[address] Job Start Date Occupation Industry Not on file Not on file Not on file documented as of this encounter Plan of Treatment Not on file documented as of this encounter Visit Diagnoses Not on filedocumented in this encounter Care Teams Reed Repairer Relationship Specialty Start Date End Date Jennifer Keller MD PCP - General Internal Medicine 01/11/19 1 Jason Hurley MD [address] [place] [address] PCP - General Internal Medicine 03/31/21 Tiburcio Garsia [address] [place] [address] Dermatology 06/11/22 Natasha Toney APRN [address] [place] [address] Internal Medicine 10/07/23 documented as of this encounter
--- OUTSIDE RECORDS SUMMARY | 2024-07-07 10:24 | XMS_ITS | Encounter Summary ---
Author Organization [employer] Address [address] [place] [address] Care Team Providers Care Drapery Worker Name Role Phone Jada Santana MD Primary Care Provider [phone] Reason for Visit * Reason Onset Date Comments Appointment 06/09/2024 Encounter Details Date Type Department Care Team ([facility] st Contact Info) Description 06/09/2024 Telephone Gastroenterology - [place] [address] [facility] [address] [facility] [address] [place] [address] Edy Davis MD [address] [facility] [address] [place], [place] [id number] Appointment Social History Tobacco Use Types Packs/Day [...] Placed back in called accordion. * Melinda Donnell - 06/09/2024 10:39 AM EST Records received [...] 8:30 AM EDT Office Visit Urogynecology - [place] [address] [place] [address] Adelina Magaña MD [address] [facility] [address] [place] [address] documented as of this encounter Visit Diagnoses Not on filedocumented in this encounter Care Teams Drapery Worker Relationship Specialty Start Date End Date Jada Santana MD [address] [place] [address] PCP - General Internal Medicine 06/09/24 documented as of this encounter
--- OUTSIDE RECORDS SUMMARY | 2024-07-07 10:24 | XMS_ITS | Encounter Summary ---
Author Organization [facility] Address [address] [place] [address] Care Team Providers Care Sports Fitness And Wellness Director Name Role Phone Jada Santana MD Primary Care Provider [phone] Natasha Toney APRN Unavailable [phone] Edy Davis MD Unavailable Encounter Details Date Type Department Care Team (Late st Contact Info) Description 05/26/[address] [place] [address] Jada Santana MD [address] [place] [address] Social History Tobacco Use Types Packs/Day Years Used Date Smoking Tobacco: Never Smokeless Tobacco: Never Alcohol Use Standard Drinks/Week Comments Yes 0 (1 standard drink = 0.6 oz pur e alcohol) Once a month (two) [facility] Utilities Answer Date Recorded In the past 12 months has [email or web address], gas, oil, or water [employer] threatened to shut off services in your home? No 05/25/2024 Social Connection and Isolation Panel [NHANES] A nswer Date Recorded In a typical week, how many times do you talk on the phone with family, friends, or neighbors? Three times a week 05/25/2024 Frequency of Social Gatherin gs with Friends and Family Not on file 05/25/2024 Attends Hoahaoism Services Not on file 05/25 Active Member [...] EST Patient has not yet read your [employer] message about scheduling her follow-up appointment. Please follow-up with patient. Jada Santana MD * Telephone Encounter - Lesley Fitzpatrick - 05/26/2024 11:52 AM EST Vm left and my chart sent documented in this encounter Plan of Treatment Not on file documented as of this encounter Visit Diagnoses Not on filedocumented in this encounter Care Teams Sports Fitness And Wellness Director Relationship Specialty Start Date End Date Jada Santana MD [address] [place] [address] PCP - General Internal Medicine 05/26/24 Natasha Toney APRN [address] [place] [address] Referring Provider 06/06/24 Edy Davis MD [address] [place] [address] Internal Medicine 06/07/24 documented as of this encounter
--- OUTSIDE RECORDS SUMMARY | 2024-07-07 10:24 | XMS_ITS | Encounter Summary ---
Author Organization [facility] Address [address] [place] [address] Care Team Providers Care Preanalytics Team Lead Name Role Phone Jason Hurley MD Primary Care Provider [phone] Tiburcio Garsia Unavailable Unavailable Natasha Toney APRN Unavailable Unavailable Encounter Details Date Type Department Care Team Description 04/07/2023 Orders Only Medical Records [address] [place] [address] Edy Davis MD 175 [facility] [address] [place] [address] Social History Tobacco Use Types Packs/Day Years [...] week 10/07/2023 How often do you attend [facility] or christianity services? Never 10/07/2023 Do you belong to any clubs o r organizations such as rastafarian groups, unions, fraternal or athletic groups, or [...] on file documented as of this encounter Procedures Procedure Name Priority Date/Time Associated Diagnosis Comments OUTSIDE COLONOSCOPY Routine 04/01/2023 documented in this encounter Results * OUTSIDE COLONOSCOPY (04/01/2023) Edy Davis MD RADIOLOGY documented in this encounter Visit Diagnoses Not on filedocumented in this encounter Care Teams Preanalytics Team Lead Relationship Specialty Start Date End Date Jason Hurley MD [address] [place] [address] PCP - General Internal Medicine 03/31/21 Tiburcio Garsia [address] [place] [address] Dermatology 06/11/22 Natasha Toney APRN [address] [place] [address] Internal Medicine 10/07/23 documented as of this encounter
--- OUTSIDE RECORDS SUMMARY | 2024-07-07 10:24 | XMS_ITS | Encounter Summary ---
Author Organization [facility] Address [address] [place] [address] Care Team Providers Care Pack Mule Worker Name Role Phone Jason Hurley MD Primary Care Provider [phone] Tiburcio Garsia Unavailable Unavailable Natasha Toney APRN Unavailable Unavailable Encounter Details Date Type Department Care Team Description 08/10/2023 Refill Adult Medicine [address] [address] Jason Hurley MD [address] [place] [address] Social History Tobacco Use Types Packs/Day Years [...] often do you attend chur ch or lutheran services? Never 10/07/2023 Do you belong to [...] place to sleep or slept in a skilled nursing (including now)? No 10/07/2023 Sex Assigned at Date Recorded Female 03/10/2019 7:[address] Job Start Date Occupation Industry Not on file Not on file Not on file documented as of this encounter Miscellaneous Notes * Telephone Encounter - Anjelica To M.A. - 08/10/2023 9:13 PM EDT Last office visit 06/25/23 Lab Results Component Value Date NA 144 06/28/2023 K 4.2 06/28/2023 CO2 25 06/28/2023 CL 111 06/28/2023 BUN 12 06/28/2023 CREAT 0.68 06/28/2023 GLU 90 06/28/2023 CA 8.9 06/28/2023 GFR 93 06/28/2023 documented in this encounter Plan of Treatment Not on file documented as of this encounter Visit Diagnoses Not on filedocumented in this encounter Care Teams Pack Mule Worker Relationship Specialty Start Date End Date Jason Hurley MD 305 [facility] [place] [address] PCP - General Internal Medicine 03/31/21 Tiburcio Garsia [address] [facility] [place] [address] Dermatology 06/11/22 Natasha oTney APRN [address] [place] [address] Internal Medicine 10/07/23 documented as of this encounter
--- OUTSIDE RECORDS SUMMARY | 2024-07-07 10:24 | XMS_ITS | Encounter Summary ---
Author Organization [facility] Address [address] [place] [address] Care Team Providers Care Cultural Anthropology Professor Name Role Phone Jada Santana MD Primary Care Provider Natasha Toney APRN Unavailable [phone] Edy Davis MD Unavailable Encounter Details Date Type Department Care Team (Late st Contact Info) Description 06/07/[address] [place] [address] Jada Santana MD [address] [place] [address] Social History Tobacco Use Types Packs/Day Years Used Date Smoking Tobacco: Never Smokeless Tobacco: Never Alcohol Use Standard Drinks/Week Comments Yes 0 (1 standard drink = 0.6 oz pur e alcohol) Once a month (two) [facility] Utilities Answer Date Recorded In the past 12 months has [facility] [employer], gas, oil, or water [employer] threatened to shut off services in your home? No 05/25/2024 Social Connection and Isolation Panel [NHANES] A nswer Date Recorded In a typical week, how many times do you talk on the phone with family, friends, or neighbors? Three times a week 05/25/2024 Frequency of Social Gatherin gs with Friends and Family Not on file 05/25/2024 Attends Bahai Services Not on file 05/25 Active Member [...] any time in the past 12 [facility], were you homeless or living in a alf (including now)? No 05/25/2024 Education Answer Date [...] on filedocumented in this encounter Care Teams Cultural Anthropology Professor Relationship Specialty Start Date End Date Jada Santana MD [address] [place] [address] PCP - General Internal Medicine 05/26/24 Natasha Tnoey APRN [address] [place] [address] Referring Provider 06/06/24 Edy Davis MD [address] [place] [address] Internal Medicine 06/07/24 documented as of this encounter
--- OUTSIDE RECORDS SUMMARY | 2024-07-07 10:24 | XMS_ITS | Clinical Summary ---
Author Organization [facility] Address [address] [place] [address] Care Team Providers Care Sail Lay Out Worker Name Role Phone Jada Santana MD Primary Care Provider [phone] Natasha Toney APRN Unavailable [phone] Edy Davis MD Unavailable Allergies Active Allergy [...] Department Care Team Description 06/07/2024 Orders Only [address] [address] Jada Santana MD Gastroesophageal reflux disease, unspecified whether esophagitis present (Primary Dx) 06/07/[address] [address] Jada Santana MD 05/26/2024 10:00 AM EST Office Visit [address] [address] Jada Santana MD Encounter to establish care (Primary Dx); Gastroesophageal reflux disease, unspecified whether esophagitis present; Tremor; Hyperlipidemia, unspecified hyperlipidemia type; Osteoporosis, unspecified osteoporosis type, unspecified pathological fracture presence 05/26/[address] [address] Jada Santana MD 05/26/2024 Travel from Last [...] pur e alcohol) Once a month (two) [facility] Utilities Answer Date Recorded In the past [...] and Family Not on file 05/25/2024 Attends Oriental Orthodox Services Not on file 05/25 Active Member [...] any time in the past 12 m [facility], were you homeless or living in a half-way (including now)? No 05/25/2024 Education Answer Date [...] Vaccine 11/25/2023 01/07/2022, 04/11/2021, 03/06/2019 COVID-19 Vaccine (4 2023-2 5 season) 2023 01/25/2023, 07/23/2020, 06/24/2020 RSV Vaccine 60 years and older and Patients (1 - 1-dose 75+ series) 02/11/2027 Hepatitis B Vaccines Aged Out No long er eligible based on patient's age to complete this topic Care Teams Sail Lay Out Worker Relationship Specialty Start Date End Date Jada Santana MD [address] [place] [address] PCP - General Internal Medicine 05/26/24 Natasha Toney APRN [address] [place] [address] Referring Provider 06/06/24 Edy Davis MD [address] [place] [address] Internal Medicine 06/07/24
--- OUTSIDE RECORDS SUMMARY | 2024-07-07 10:24 | XMS_ITS | Encounter Summary ---
Author Organization [facility] Address [address] [place] [address] Care Team Providers Care Tobacco Sorter Name Role Phone Jada Santana MD Primary Care Provider [phone] Reason for Visit * Reason Comments GERD Post nasal drip Dysphagia Encounter Details Date Type Department Care Team (Latest Contact Info) Description 06/27/2024 8:45 AM EST Office Visit Gastroenterology - [place] [address] [place] [address] Edy Davis MD [address] [place] [address] Gastroesophageal reflux disease without esophagitis (Primary Dx); Ulcerative proctitis without complication (CMS/HCC); Tubular adenoma; Post-nasal drip Social History Tobacco Use Types Packs/Day Years [...] on file documented as of this encounter Last Filed [...] Mass Index 24.21 06/27/2024 8:53 AM EST documented in this encounter Progress Notes * Edy Davis MD - 06/27/2024 8:45 AM EST Continue Cetitrizine and try to taper Prilosec. Will be stopping Fosamax and converting to IV therapy twice a year. Should return in one year or prn. Repeat colonoscopy for surveillance in 04/20 * Edy Davis MD - 06/27/2024 8:45 AM EST 74 y/o WF follow-up for UP TA and GERD. Had been having worsening heartburn for several months. PCPincreased Prilosec to 40 mg bid without improvement. Avoiding known triggers (citrus, chocolate. Has long-standing post-nasal drip. Friend suggested OTC Cetirizine and all; symptoms have markedly improved. Had negative allergy w/u at [facility] about 7 years ago after developed cough on lisinopril. Denies lower symptoms including diarrhea, pain, bl;eeding or cramping unless she takes ASSA for DJD of hands which causes rectal bleeding in two days but she tries to avoid this. Had EGD and colonoscopy in 04/17. Normal EGD. Colonoscopy showed no active disease and no dysplasia. Due 04/20 for colonoscopy. Had small TA removed as well. Non-smoker. No EtOH. PMH: as noted; s/p CCX ROS: no fever, weight loss No SOB SSCP WATTS GI as above PE: WN/WD WF NADS HEENT neg Cor and Lungs: clear Abd: soft non-tender no mass Extr: neg documented in this encounter Plan of Treatment Upcoming Encounters Date Type Department Care Team (Late st Contact Info) Description 02/20/2025 8:30 AM EDT Office Visit Urogynecology - [address] [phone] Adelina Magaña MD [address] [facility] [address] [place] [address] documented as of this encounter Visit Diagnoses Diagnosis Gastroesophageal reflux disease without esophagitis- Primary Esophageal reflux Ulcerative proctitis without complication (CMS/HCC) Tubular adenoma Benign neoplasm of unspecified site Post-nasal drip Postnasal drip documented in this encounter Historical Medications * This list may reflect changes made after this encounter. diclofenac (VOLTAREN) 1 % topical gel 4 (four) times a day. 06/23/2024 added in this encounter Care Teams Tobacco Sorter Relationship Specialty Start Date End Date Jada Santana MD [address] [place] [address] PCP - General Internal Medicine 06/09/24 documented as of this encounter
--- OUTSIDE RECORDS SUMMARY | 2024-07-07 10:24 | XMS_ITS | Encounter Summary ---
Author Organization [facility] Address [address] [place] [address] Care Team Providers Care Commercial Hvac Technician Name Role Phone Jason Hurley MD Primary Care Provider [phone] Tiburcio Garsia Unavailable Unavailable Natasha Toney APRN Unavailable Unavailable Encounter Details Date Type Department Care Team Description 08/04/2023 Refill Urogynecology [address] [address] Adelina Magaña MD [address] [place] [address] [place] [address] Social History Tobacco Use Types Packs/Day Years [...] How often do you attend chur or orthodoxy services? Never 10/07/2023 Do you belong to [...] place to sleep or slept in a intermediate (including now)? No 10/07/2023 Sex Assigned at Date Recorded Female 03/10/2019 7:[address] Job Start Date Occupation Industry Not on file Not on file Not on file documented as of this encounter Plan of Treatment Not on file documented as of this encounter Visit Diagnoses Diagnosis Urge incontinence Urgency of urination Frequency of urination Urinary frequency Nocturia Vaginal atrophy Postmenopausal atrophic vaginitis documented in this encounter Care Teams Commercial Hvac Technician Relationship Specialty Start Date End Date Jason Hurley MD [address] [place] [address] PCP - General Internal Medicine 03/31/21 Tiburcio Garsia [address] [place] [address] Dermatology 06/11/22 Natasha Toney APRN [address] [place] [address] Internal Medicine 10/07/23 documented as of this encounter
--- OUTSIDE RECORDS SUMMARY | 2024-07-07 10:24 | XMS_ITS | Encounter Summary ---
Author Organization [facility] Address [address] [place] [address] Care Team Providers Care Stove Fitter Name Role Phone Jason Hurley MD Primary Care Provider [phone] Tiburcio Garsia Unavailable Unavailable Natasha Toney APRN Unavailable Unavailable Reason for Visit * Reason Onset Date Comments Medication 03/30/2023 Encounter Details Date Type Department Care Team Description 03/30/2023 Refill Gastroenterology - [place] [address] [facility] [address] [place] [phone] Edy Davis MD [address] [facility] [address] [place] [address] Medication Social History Tobacco Use Types Packs/Day Years [...] How often do you attend chur or pentecostalism services? Never 10/07/2023 Do you belong to any clubs o r organizations such as faith groups, unions, fraternal or athletic groups, or [...] to sleep or slept in a senior care (including now)? No 10/07/2023 Sex Assigned at Date Recorded Female 03/10/2019 7:[address] Job Start Date Occupation Industry Not on file Not on file Not on file documented as of this encounter Plan of Treatment Not on file documented as of this encounter Visit Diagnoses Not on filedocumented in this encounter Care Teams Stove Fitter Relationship Specialty Start Date End Date Jason Hurley MD [address] [place] [address] PCP - General Internal Medicine 03/31/21 Tiburcio Garsia [address] [place] [address] Dermatology 06/11/22 Natasha Toney APRN [address] [place] [address] Internal Medicine 10/07/23 documented as of this encounter
--- OUTSIDE RECORDS SUMMARY | 2024-07-07 10:24 | XMS_ITS | Encounter Summary ---
Author Organization [facility] Address [address] [place] [address] Care Team Providers Care Cafe Operator Name Role Phone Jada Santana MD Primary Care Provider Natasha Toney APRN Unavailable [phone] Edy Davis MD Unavailable Reason for Referral * Gastroenterology (Routine) - Authorized Specialty Diagnoses / Procedures Referred By Contac t Referred To Contact Gastroenterology Diagnoses Gastroesophageal reflux disease, unspecified whether esophagitis present Jada Santana MD [address] [place] [address] Edy Davis MD [address] [place] [address] Referral ID Status Reason Start Date Expiration Date V isits Requested Visits Authorized [id number] Authorized Consult 06/07/2024 06/08/2025 1 1 Question Answer Select Referral Type: Consult Encounter Details Date Type Department Care Team (Late st Contact Info) Description 06/07/2024 Orders Only [address] [place] [phone] Jada Santana MD [address] [place] [address] Gastroesophageal reflux disease, unspecified whether esophagitis present (Primary Dx) Social History Tobacco Use Types Packs/Day Years Used Date Smoking Tobacco: Never Smokeless Tobacco: Never Alcohol Use Standard Drinks/Week Comments Yes 0 (1 standard drink = 0.6 oz pur e alcohol) Once a month (two) [facility] Utilities Answer Date Recorded In the [...] any time in the past 12 m onths, were you homeless or living in a [...] Primary documented in this encounter Care Teams Cafe Operator Relationship Specialty Start Date End Date Jada Santana MD [address] [place] [address] PCP - General Internal Medicine 05/26/24 Natasha Toney APRN [address] [place] [address] Referring Provider 06/06/24 Edy Davis MD [address] [place] [address] Internal Medicine 06/07/24 documented as of this encounter
--- OUTSIDE RECORDS SUMMARY | 2024-07-07 10:24 | XMS_ITS | Clinical Summary ---
Author Organization [employer] Address [address] [facility] [address] [place] [address] Care Team Providers Care Slitter Cut Off Operator Name Role Phone Unavailable Primary Care Provider [...] patient's age to complete this topic Insurance [facility]
--- OUTSIDE RECORDS SUMMARY | 2024-07-07 10:24 | XMS_ITS | Encounter Summary ---
Author Organization [facility] Address [address] [place] [address] Care Team Providers Care Sales Representative Metals Name Role Phone Jennifer Keller MD Primary Care Provider Melissa vailable Jason Hurley MD Primary Care Provider [phone] Tiburcio Garsia Unavailable Unavailable Natasha Toney APRN Unavailable Unavailable Encounter Details Date Type Department Care Team Description 04/28/2019 Release of Information Medical Records [address] [place] [address] Abstract, Provider Social History Tobacco Use Types [...] week 10/07/2023 How often do you attend [facility] or yarsanism services? Never 10/07/2023 Do you belong to any clubs o r organizations such as sikhism groups, unions, fraternal or athletic groups, or [...] place to sleep or slept in a group home (including now)? No 10/07/2023 Sex Assigned at Date Recorded Female 03/10/2019 7:[address] Job Start Date Occupation Industry Not on file Not on file Not on file documented as of this encounter Plan of Treatment Not on file documented as of this encounter Visit Diagnoses Not on filedocumented in this encounter Care Teams Sales Representative Metals Relationship Specialty Start Date End Date Jennifer Keller MD PCP - General Internal Medicine 01/11/19 1 Jason Hurley MD [address] [place] [address] PCP - General Internal Medicine 03/31/21 Tiburcio Garsia [address] [place] [address] Dermatology 06/11/22 Natasha Toney APRN [address] [place] [address] Internal Medicine 10/07/23 documented as of this encounter
--- OUTSIDE RECORDS SUMMARY | 2024-07-07 10:24 | XMS_ITS | Encounter Summary ---
Author Organization [facility] Address [address] [place] [address] Care Team Providers Care Physicians And Surgeons Name Role Phone Jason Hurley MD Primary Care Provider [phone] Tiburcio Garsia Unavailable Unavailable Natasha Toney APRN Unavailable Unavailable Encounter Details Date Type Department Care Team Description 11/03/2022 Jig Borer Report Medical Records [address] [place] [address] Justyn Martínez MD Social History Tobacco Use [...] week 10/07/2023 How often do you attend [facility] or congregational services? Never 10/07/2023 Do you belong to [...] on filedocumented in this encounter Care Teams Physicians And Surgeons Relationship Specialty Start Date End Date Jason Hurley MD [address] [facility] [place] [address] PCP - General Internal Medicine 03/31/21 Tiburcio Garsia [address] [place] [place] [address] Dermatology 06/11/22 Natasha Toney APRN [address] [place] [address] Internal Medicine 10/07/23 documented as of this encounter
--- OUTSIDE RECORDS SUMMARY | 2024-07-07 10:24 | XMS_ITS | Encounter Summary ---
Author Organization [facility] Address [address] [place] [address] Care Team Providers Care Paid Search Marketing Strategist Name Role Phone Wellington Cowan MD Primary Care Provider Melissa vailable Jennifer Keller MD Primary Care Provider Melissa vailable Jason Hurley MD Primary Care Provider [phone] Tiburcio Garsia Unavailable Unavailable Natasha Toney APRN Unavailable Unavailable Encounter Details Date Type Department Care Team Description 05/22/2014 Hospital Medical Records [address] [place] [address] Cherie Dumont MD Social History Tobacco Use Types Packs/Day [...] How often do you attend [facility] or episcopalian services? Never 10/07/2023 Do you belong to [...] place to sleep or slept in a retirement (including now)? No 10/07/2023 Sex Assigned at Date Recorded Female 03/10/2019 7:[address] Job Start Date Occupation Industry Not on file Not on file Not on file documented as of this encounter Plan of Treatment Not on file documented as of this encounter Visit Diagnoses Not on filedocumented in this encounter Care Teams Paid Search Marketing Strategist Relationship Specialty Start Date End Date Wellington Cowan MD PCP - General 11/23/1997 01/10/19 Jennifer Keller MD PCP - General Internal Medicine 01/11/19 1 Jason Hurley MD [address] [place] [address] PCP - General Internal Medicine 03/31/21 Tiburcio Garsia [address] [place] [address] Dermatology 06/11/22 Natasha Toney APRN [address] [place] [address] Internal Medicine 10/07/23 documented as of this encounter
[2024-07-07 11:09] LABS: Alanine Aminotransferase 22 U/L (0-31); Albumin Level 4.2 g/dL (3.5-5.0); Alkaline Phosphatase 60 U/L (39-117); Anion Gap 11 (12-20); Aspartate Amino Transferase 17 U/L (5-31); Bilirubin Total 0.3 mg/dL (0.0-1.0); Blood Urea Nitrogen 19 mg/dL (9-16); Calcium 9.3 mg/dL (8.4-10.2); Carbon Dioxide 28 mmol/L (22-29); Chloride 107 mmol/L (96-108); Estimated Glomerular Filt Rate > 60; Glucose Random 107 mg/dL (60-115); Potassium 4.3 mmol/L (3.3-5.1); Sodium 142 mmol/L (135-145); Total Protein 7.4 g/dL (6.5-8.0)
[2024-07-12 19:43] LABS: Vitamin D 25-OH, D2 <4 ng/mL; Vitamin D 25-OH, D3 37 ng/mL; Vitamin D 25-OH, Total 37 ng/mL (30-100)
== END 2024-07-07 09:31 | disposition home or self-care (01) ==
LOC: HO.10HDL 09:30
PROVIDERS: Visit Provider Student in an Organized Health Care Education/Training Program
DX: M81.0 Age-related osteoporosis without current pathological fracture (principal); E55.9 Vitamin D deficiency, unspecified
CPT/HCPCS: 36415; 80053; 82306; 85025

== ENCOUNTER 2024-07-11 11:01 | Outpatient (RCR) | payer MEDICARE, SELFPAY ==
[2024-07-11 11:11] VITALS: BP 130/86; PULSE 86; RESP 20; TEMP 36.1; O2SAT 97
[2024-07-11] MEDS: Zoledronic Acid/Mannitol-Water 5 MG/100 ML PGGYBK.BTL IV (11:28)
== END 2024-07-11 12:45 | disposition home or self-care (01) ==
LOC: HO.INF 11:01
PROVIDERS: Visit Provider Student in an Organized Health Care Education/Training Program
DX: M81.0 Age-related osteoporosis without current pathological fracture (principal)
CPT/HCPCS: 96374; J3489

== ENCOUNTER 2024-12-19 07:53 | Outpatient (AMB) | payer MEDICARE, SELFPAY ==
--- OUTSIDE RECORDS SUMMARY | 2024-12-19 07:58 | XMS_ITS | Encounter Summary ---
Author Organization [facility] Address [address] [place] [address] Care Team Providers Care Dependency Program Director Name Role Phone Jason Hurley MD Primary Care Provider [phone] Tiburcio Garsia Unavailable Unavailable Natasha Toney APRN Unavailable Unavailable Encounter Details Date Type Department Care Team Description 05/10/2023 Refill Urogynecology [address] [address] Adelina Magaña MD [address] [place] [address] [place] [address] Social History Tobacco Use Types Packs/Day Years [...] How often do you attend chur or sikhism services? Never 10/07/2023 Do you belong to any clubs o r organizations such as adventist groups, unions, fraternal or athletic groups, or [...] place to sleep or slept in a snf (including now)? No 10/07/2023 Sex Assigned at [...] vaginitis documented in this encounter Care Teams Dependency Program Director Relationship Specialty Start Date End Date Jason Hurley MD [address] [place] [address] PCP - General Internal Medicine 03/31/21 Tiburcio Garsia [address] [place] [address] Dermatology 06/11/22 Natasha Toney APRN [address] [place] [address] Internal Medicine 10/07/23 documented as of this encounter
--- OUTSIDE RECORDS SUMMARY | 2024-12-19 07:58 | XMS_ITS | Encounter Summary ---
[facility] Organization [facility] Address [address] [place] [address] Care Team Providers Care Intercell Connector Placer Name Role Phone Jason Hurley MD Primary Care Provider [phone] Tiburcio Garsia Unavailable Unavailable Natasha Toney APRN Unavailable Unavailable Reason for Visit * Reason Onset Date Comments refill request 05/10/2023 Encounter Details Date Type Department Care Team Description 05/10/2023 Refill Adult Medicine [facility] [address] [place] [address] Juve Pickett PA-C [address] [place] [address] refill request Social History Tobacco Use Types Packs/Day Years [...] How often do you attend chur or worship services? Never 10/07/2023 Do you belong to any clubs o r organizations such as oriental orthodox groups, unions, fraternal or athletic groups, or [...] place to sleep or slept in a [place] [facility] [place] (including now)? No 10/07/2023 Sex Assigned at Date Recorded Female 03/10/2019 7:[address] Job Start Date Occupation Industry Not on file Not on file Not on file documented as of this encounter Plan of Treatment Not on file documented as of this encounter Visit Diagnoses Not on filedocumented in this encounter Care Teams Intercell Connector Placer Relationship Specialty Start Date End Date Jason Hurley MD [address] [facility] [place] [address] PCP - General Internal Medicine 03/31/[address] [facility] [address] Dermatology 06/11/22 Natasha Toney APRN [address] [facility] [place] [address] Internal Medicine 10/07/23 documented as of this encounter
--- OUTSIDE RECORDS SUMMARY | 2024-12-19 07:58 | XMS_ITS | Encounter Summary ---
Author Organization [facility] Address [address] [place] [address] Care Team Providers Care Mechanic Senior Name Role Phone Jason Hurley MD Primary Care Provider [phone] Tiburcio Garsia Unavailable Unavailable Natasha Toney APRN Unavailable Unavailable Reason for Visit * Reason Comments E-prescribe Rx Request Encounter Details Date Type Department Care Team Description 02/15/2023 Refill Urogynecology [address] [phone] Adelina Magaña MD [address] [place] [address] [place] [address] E-prescribe Rx Request Social History Tobacco Use Types Packs/Day Years [...] often do you attend chur ch or congregation services? Never 10/07/2023 Do you belong to any clubs o r organizations such as worship groups, unions, fraternal or athletic groups, or [...] place to sleep or slept in a nursing home (including now)? No 10/07/2023 Sex Assigned at Date Recorded Female 03/10/2019 7:[address] Job Start Date Occupation Industry Not on file Not on file Not on file documented as of this encounter Plan of Treatment Not on file documented as of this encounter Visit Diagnoses Not on filedocumented in this encounter Care Teams Mechanic Senior Relationship Specialty Start Date End Date Jason Hurley MD [address] [place] [address] PCP - General Internal Medicine 03/31/21 Tiburcio Garsia [address] [place] [address] Dermatology 06/11/22 Natasha Toney APRN [address] [place] [address] Internal Medicine 10/07/23 documented as of this encounter
--- OUTSIDE RECORDS SUMMARY | 2024-12-19 07:58 | XMS_ITS | Encounter Summary ---
Author Organization [facility] Address [address] [place] [address] Care Team Providers Care Steel Pan Form Placing Supervisor Name Role Phone Jason Hurley MD Primary Care Provider [phone] Tiburcio Garsia Unavailable Unavailable Natasha Toney APRN Unavailable Unavailable Encounter Details Date Type Department Care Team Description 05/06/2022 Health Administration Teacher Report Medical Records [address] [place] [address] Justyn Martínez MD Social History Tobacco Use [...] week 10/07/2023 How often do you attend [facility] or mu-ism services? Never 10/07/2023 Do you belong to any clubs o r organizations such as methodist groups, unions, fraternal or athletic groups, or [...] place to sleep or slept in a prison (including now)? No 10/07/2023 Sex Assigned at Date Recorded Female 03/10/2019 7:[address] Job Start Date Occupation Industry Not on file Not on file Not on file documented as of this encounter Plan of Treatment Not on file documented as of this encounter Visit Diagnoses Not on filedocumented in this encounter Care Teams Steel Pan Form Placing Supervisor Relationship Specialty Start Date End Date Jason Hurley MD [address] [facility] [place] [address] PCP - General Internal Medicine 03/31/21 Tiburcio Garsia [address] [facility] [place] [address] Dermatology 06/11/22 Natasha Toney APRN [address] [place] [address] Internal Medicine 10/07/23 documented as of this encounter
--- OUTSIDE RECORDS SUMMARY | 2024-12-19 07:58 | XMS_ITS | Clinical Summary ---
Author Organization [facility] Address [address] [place] [address] Phone Care Team Providers Care Airport Ramp Attendant Name Role Phone Jada Santana MD Primary Care Provider [phone] Allergies Active Allergy Reactions Criticality Noted Date [...] Osteoporosis 01/16/2019 Tubular adenoma 01/16/2019 Ulcerative colitis ([facility] V24, [facility] V28) Overview (06/16/2024): Proctitis by colonoscopy 04/2019 Encounters Date Type Department Care Team Description 11/16/2024 Telephone Urogy[address]cology [address] [phone] [facility] [place] 11/01/2024 Telephone Urogynecology - [place] [address] [place] [address] [facility] [place] 10/16/2024 Telephone Urogynecology [address] [phone] [facility] [place] 10/06/2024 Telephone Urogynecology - [address] [place] [phone] Adelina Magaña MD 10/03/2024 3:15 PM EDT Office Visit Urogynecology [facility] [address] [place] [phone] Adelina Magaña MD Prolapse of anterior vaginal wall (Primary Dx); Uterine prolapse; Prolapse of posterior vaginal wall; LIZ (stress urinary incontinence, female) from Last 3 Months Immunizations Name Administration [...] Dr. Davis; proctitis, UC, bx CHOLECYSTECTOMY PROCEDURE: CT LAPAROSCOPY SURG CHOLECYSTECTOMY OTHER SURGICAL HISTORY Bilateral PROCEDURE: CT DILATION & CURETTAGE DX&/THER NONOBSTETRIC Medical History Medical History Date Comments GERD (gastroesophageal reflu x disease) 01/16/2019 DX:GERD (gastroesophageal re flux disease) Anxiety 01/16/2019 DX:Anxiety Insomnia 01/16/2019 DX:Insomnia Depression 01/16/2019 DX:Depression Ulcerative colitis ([facility] V24, CMS/HCC V28) 01/16/2019 DX:Ulcerative colitis (HCC); COMMENT: in remission x years [...] Sign Reading Time Taken Comments Blood Pressure 153/107 10/03/2024 3:20 PM EDT Pulse 76 06/27/2024 8:53 AM EST Temperature - - Respiratory Rate - - Oxygen Saturation - - Inhaled Oxygen Concentration - - Weight 71.2 kg (157 lb) 10/03/2024 3:20 PM EDT Height 167.6 cm (5' 6 ) 06/27/2024 8:53 AM EST Body Mass Index 25.34 06/27/2024 8:53 AM EST Plan of Treatment Upcoming Encounters Date Type Department Care Team (Latest Contact Info) Description 02/08/2025 10:00 AM EDT Procedure visit Urogynecology [address] [phone] Yaneli Resendez NP [address] [address] 02/20/2025 8:30 AM EDT Office Visit Urogynecology [address] [phone] Adelina Magaña MD [address] [address] 02/21/2025 8:30 AM EDT Consult Urogynecology - [address] [phone] Adelina Magaña MD [address] [address] 03/05/2025 11:00 AM EST Hospital Encounter [facility] [place] [address] [place] [phone] Adelina Magaña MD [address] [address] 03/05/2025 11:00 AM EST - 03/05/2025 2:30 PM EST Surgery [facility] OR [address] [place] [phone] Adelina Magaña MD [address] [address] HYSTERECTOMY VAGINAL BSO [[id number] (CPT )] 03/29/2025 2:45 PM EST Office Visit Urogynecology - [address] [phone] Yaneli Resendez NP [address] [address] 04/17/2025 8:45 AM EST Office Visit Urogynecology [address] [phone] Adelina Magaña MD [address] [address] Scheduled Procedures Name Priority Associated Diagnoses Date/Ti me HYSTERECTOMY VAGINAL BSO Stress incontinence Prolapse of anterior vaginal wall Prolapse of posterior vaginal wall Uterine prolapse 03/05/2025 11:00 AM EST COLPOPEXY VAGINAL INTRAPERITONEAL Stress incontinence Prolapse of anterior vaginal wall Prolapse of posterior vaginal wall Uterine prolapse 03/05/2025 11:00 AM EST COLPORRHAPHY ANTERIOR POSTERIOR Stress incontinence Prolapse of anterior vaginal wall Prolapse of posterior vaginal wall Uterine prolapse 03/05/2025 11:00 AM EST SLING SUBURETHRAL Stress incontinence Prolapse of anterior vaginal wall Prolapse of posterior vaginal wall Uterine prolapse 03/05/2025 11:00 AM EST CYSTOSCOPY Stress incontinence Prolapse of anterior vaginal wall Prolapse of posterior vaginal wall Uterine prolapse 03/05/2025 11:00 AM EST Health Maintenance Due Date Last Done Comments Breast Cancer Screening 1950 Pneumococcal Vaccine: 50+ Years (2 of 2 - PPSV23) 01/04/2021 01/05/2020 Falls Risk Assessment 03/29/2022 Medicare Annual Wellness Visit 03/29/2022 Social Influencers of Health Screening 03/29/2022 Zoster Vaccines (2 of 2) 03/22/2023 01/25/2023 Depression Screening 04/26/2024 Influenza Vaccine (#1) 2024 , 01/07/2022, 04/11/2021, Additional history exists Colorectal Cancer Screening: Colonoscopy 04/01/2026 04/01/2023 RSV Immunization Adult Patients (1 - 1-dose 75+ series) 02/11/2027 Cholesterol Screening (Lipid Panel) 06/27/2028 06/28/2023 Osteoporosis Screening (Bone Density Screening) 06/21/2029 06/21/2019 DTaP,Tdap,and Td Vaccines (4 - Td or Tdap) 09/27/2034 09/27/2024, 06/27/2019, 06/04/2010 Hepatitis C Screening Completed 01/31/2019 COVID-19 Vaccine Completed 09/27/2024, 10/2023, 01/25/2023, Additional history exists HIB Vaccines Aged Out [...] age to complete this topic Meningococcal B Vaccine Aged Out No l onger eligible based on patient's age to complete this topic RSV Immunization Patients Under 20 months Aged Out No longer eligible based on patient's age to complete this topic Varicella Vaccines Aged Out No longer eligible based on patient's age to complete this topic Procedures Procedure Name Priority Date/Time Associated Diagnosis Comments POC URINE AUTO W/O MICRO Routine 10/04/2024 10:02 AM EDT Uterine prolapse LIPID PANEL Routine 06/28/2023 HM COLONOSCOPY Routine 04/01/2023 DXA BONE DENSITY STUDY 1+ SITS AXIAL SKEL Routine 06/21/2019 12:47 PM EST Encounter for screening for osteoporosis HEPATITIS C SCREENING Routine 01/31/2019 from Last 3 Months or Most Recently Relevant to Health Maintenance Results * POC Urine Auto W/O Micro (10/04/2024 10:02 AM EDT) Glucose UA POC Negative Negative, Trace mg/dL Bilirubin UA POC Negative Negative, Small Ketones UA POC Negative Negative, Trace Specific [place] UA POC 1.010 Blood UA POC Negative Negative, Large PH UA POC 5.5 Protein UA POC Negative Negative, >=300 mg/dL Urobilinogen UA POC 0.2 E.U./dL mg/dL Nitrite UA POC Negative Negative Leukocytes UA POC Negative Negative Urine Urine specimen obtained by clean catch procedure / Unknown 10/04/2024 10:02 AM EDT Adelina Magaña MD POINT OF CARE TEST ENTER/EDIT OR DERABLES Final Result * (ABNORMAL) Lipid panel (06/28/2023) LDL/HDL Ratio 3 0 - 4 Triglycerides 156(A) 0 - 150 mg/dL Cholesterol 221(A) 0 - 200 mg/dL HDL 65 >=40 mg/dL LDL Cholesterol 125(A) 0 - 100 mg/dL Blood Venous blood specimen / Unknown Historical Provider LAB BLOOD ORDERABLES Sharmaine l Result * Colonoscopy (04/01/2023) Colonoscopy negative, abstracted Anatomical Region Laterality Modality Other Historical Provider HEALTH MAINTENANCE Final Result * [...] shows multilevel thoracolumbar endplate concavities. IMPRESSION: IMPRESSION: Osteoporosis by WHO criteria. FRAX scores not able to be calculated. [facility] Department of Internal Medicine recommends [...] alternative screening schedule based on nakul Martinez., [facility] May 14, 2011 for patients with osteopenia [...] scores not able to be calculated. [facility] Department of Internal Medicine recommendsusing [...] Resu lt * Hepatitis C Screening (01/31/2019) [facility] Hepatitis C Screening abstracted Historical Provider MD HEALTH MAINTENANCE Final Result from Last 3 Months or Most Recently Relevant to Health Maintenance Insurance [employer] MEDICARE Care Teams Airport Ramp Attendant Relationship Specialty Start Date End Date Jada Santana MD [address] [place] [address] PCP - General Internal Medicine 06/09/24
--- OUTSIDE RECORDS SUMMARY | 2024-12-19 07:58 | XMS_ITS | Encounter Summary ---
Author Organization [facility] Address [address] [place] [address] Care Team Providers Care Motor Tester Name Role Phone Jason Hurley MD Primary Care Provider [phone] Tiburcio Garsia Unavailable Unavailable Natasha Toney APRN Unavailable Unavailable Encounter Details Date Type Department Care Team Description 04/07/2023 Orders Only Medical Records [address] [place] [address] Edy Davis MD [address] [facility] [address] [place] [address] Social History Tobacco Use Types Packs/Day Years [...] week 10/07/2023 How often do you attend [facility] or temple services? Never 10/07/2023 Do you belong to any clubs o r organizations such as alevism groups, unions, fraternal or athletic groups, or [...] place to sleep or slept in a jail (including now)? No 10/07/2023 Sex Assigned at [...] on filedocumented in this encounter Care Teams Motor Tester Relationship Specialty Start Date End Date Jason Hurley MD [address] [place] [address] PCP - General Internal Medicine 03/31/21 Tiburcio Garsia [address] [place] [address] Dermatology 06/11/22 Natasha Toney APRN [address] [place] [address] Internal Medicine 10/07/23 documented as of this encounter
--- OUTSIDE RECORDS SUMMARY | 2024-12-19 07:58 | XMS_ITS | Encounter Summary ---
Author Organization [employer] [facility] Address [address] [place] [address] Care Team Providers Care Smooth Stucco Resurfacer Name Role Phone Wellington Cowan MD Primary Care Provider Melissa vailaJennifer Rodriguez MD Primary Care Provider Melissa vailable Jason Hurley MD Primary Care Provider [phone] Tiburcio Garsia Unavailable Unavailable Natasha Toney APRN Unavailable Unavailable Encounter Details Date Type Department Care Team Description 05/22/2014 Hospital Medical Records [address] [place] [address] Jose Angel Cortez MD Social History Tobacco Use Types Packs/Day [...] often do you attend chur ch or anabaptist services? Never 10/07/2023 Do you belong to any clubs o r organizations such as evangelical groups, unions, fraternal or athletic groups, or [...] on filedocumented in this encounter Care Teams Smooth Stucco Resurfacer Relationship Specialty Start Date End Date Wellington Cowan MD PCP - General 11/23/1997 01/10/19 Jennifer Keller MD PCP - General Internal Medicine 01/11/19 1 Jason Hurley MD [address] [place] [address] PCP - General Internal Medicine 03/31/21 Tiburcio Garsia [address] [place] [address] Dermatology 06/11/22 Natasha Toney APRN [address] [place] [address] Internal Medicine 10/07/23 documented as of this encounter
--- OUTSIDE RECORDS SUMMARY | 2024-12-19 07:58 | XMS_ITS | Clinical Summary ---
Author Organization [facility] [employer] Address [address] [facility] [place] [address] Care Team Providers Care Director Of Instruction Name Role Phone Unavailable Primary Care Provider [...] 70 11/28/2020 5:09 PM EDT Temperature 36.3 C (97.3 F) 11/28/2020 5:09 PM EDT Respiratory Rate - - Oxygen Saturation 97% 11/28/2020 5:09 PM EDT Inhaled Oxygen Concentration - - Weight - - Height - - Body Mass Index - - Plan of Treatment Health Maintenance Due Date Last Done Comments Colorectal Cancer: COLONOSCO PY Screening every 10 yrs (or Modifier) 1950 Depression: Screening Annual ly using PHQ-2/9 in Adults 18 yrs or above (or HM Modifier)([facility]) 02/11/1970 Hepatitis C Virus Infection in Adolescents and Adults: Screening (or Modifier) ([facility]) 02/11/1970 SDOH Screening Reminder: Jennifer moffett for all adults ([facility]) 02/11/1970 Tobacco Smoking Cessation: i n Adults excluding Women: Behavioral and Pharmacotherapy Interventions ([facility]) 02/11/1970 DTaP/Tdap/Td Vaccines ([facility]) (1 - Tdap) 02/11/1971 Colorectal Cancer Screening 45 -75 Yrs (or HM Modifier) 02/11/1997 Colorectal Cancer: FLEXIBLE SIGMOIDOSCOPY Screening every 5 yrs 02/11/1997 Colorectal Cancer: Fecal Imm unochemical Test (FIT) Annually [facility] 02/11/1997 Colorectal Cancer: High-sens itivity gFOBT Screening Annually [facility] 02/11/1997 Colorectal Cancer: Stool Col oguard Screening every 3 yrs 02/11/1997 Colorectal Cancer:CT Colonog gaye Screening every 5 yrs 02/11/1997 Breast Cancer: Screening Jennifer zuhair age 50-74 yrs (or HM Modifier)([facility]) 02/11/2002 Pneumococcal Vaccination Scr eening: Patients 50+ yrs of age ([facility]) (1 of 1 - PCV) 02/11/2002 Zoster/Shingles Vaccine Seri es Screening: Adults aged 18+ yrs (or HM Modifiers)([facility]) (1 of 2) 02/11/2002 Osteoporosis Screening to Pr event Fractures: Women aged 65 years+ ([facility]) 02/11/2017 COVID-19 Vaccine Screening: Initial Series and Booster Status ([facility]) (2023- season) 2023 07/23/2020, 06/24/2020 Flu Vaccination: Ages 65+: Y early High Dose Recommended (or Modifier)([facility]) 11/24/2024 03/06/2019 RSV Vaccines (1 - 1-dose 75+ series) 02/11/2027 Medical Devices Not on file Insurance [employer] MEDICARE
--- OUTSIDE RECORDS SUMMARY | 2024-12-19 07:58 | XMS_ITS | Encounter Summary ---
Author Organization [facility] Address [address] [place] [address] Care Team Providers Care Cavalry Scout Name Role Phone Jason Hurley MD Primary Care Provider [phone] Tiburcio Garsia Unavailable Unavailable Natasha Toney APRN Unavailable Unavailable Encounter Details Date Type Department Care Team Description 02/06/2023 Pt. Referral Request [facility] [address] [place] [address] Md Osorio Social History Tobacco Use Types Packs/Day Years [...] week 10/07/2023 How often do you attend [facility] or druze services? Never 10/07/2023 Do you belong to [...] place to sleep or slept in a penitentiary (including now)? No 10/07/2023 Sex Assigned at Date Recorded Female 03/10/2019 7:[address] Job Start Date Occupation Industry Not on file Not on file Not on file documented as of this encounter Plan of Treatment Not on file documented as of this encounter Visit Diagnoses Not on filedocumented in this encounter Care Teams Cavalry Scout Relationship Specialty Start Date End Date Jason Hurley MD [address] [place] [address] PCP - General Internal Medicine 03/31/21 Tiburcio Garsia [address] [place] [address] Dermatology 06/11/22 Natasha Toney APRN [address] [place] [address] Internal Medicine 10/07/23 documented as of this encounter
--- OUTSIDE RECORDS SUMMARY | 2024-12-19 07:58 | XMS_ITS ---
[facility] Name [facility] History of Medication Use Medication Directions Dispensed Refills Start Date End Date Stat us diclofenac (VOLTAREN) 1 % topical gel 4 (four) times a day. 06/23/2024 active estradioL (ESTRACE) 0.01 % (0.1 mg/gram) vaginal cream Please use a pea-sized amount on your finger and place inside the vagina twice a week at night (Mondays and ) 02/21/2024 active solifenacin (VESICARE) 5 mg tablet Take 1 Tablet by mouth daily. 02/21/2024 active gabapentin (NEURONTIN) 100 mg capsule TAKE 1 CAPSULE BY MOUTH EVERYDAY AT BEDTIME 02/09/2024 active omeprazole (PriLOSEC) [address] capsule 2 (two) times a day before meals. 02/09/2024 active atorvastatin (LIPITOR) 20 mg tablet TAKE 1 TABLET BY MOUTH EVERY DAY 01/03/2024 active buPROPion XL (WELLBUTRIN XL) 150 mg 24 hr tablet TAKE 1 TABLET BY MOUTH EVERY MORNING 10/12/2023 active cloNIDine (CATAPRES) 0.1 mg tablet Take 1 Tablet by mouth daily. 10/03/2023 active busPIRone (BUSPAR) 5 mg tablet Take 1 Tablet by mouth 2 Times Daily. 08/05/2023 active alendronate (FOSAMAX) 70 mg tablet TAKE 1 TABLET BY MOUTH EVERY WEEK 05/06/2022 active cholecalciferol (VITAMIN D-3) 25 mcg (1,000 unit) capsule Take 1 Cap by mouth daily. active melatonin 3 mg tablet Take 1 Tab by mouth at bedtime as needed. active Allergies Allergen Reaction Severity Comment Documented Date Source Statu s LISINOPRIL COUGH 01/31/2019 [facility] active SULFADIAZINE No reaction documented., ,Other Reaction(s): Rash/Dermatitis 01/16/2019 [facility] active Problems Problem Status Onset Date Problem Type Date of Resolution Source GERD (gastroesophageal reflux disease) active 2019-01-16 [facility] [facility] Hyperlipidemia active 2019-01-[address] [facility] Cervical lymphadenopathy active 2019-01-16 Problem[address] [facility] Arthritis of both knees active 2023-11-10 Problem[address] [facility] Ulcerative colitis ([facility] V24, [facility] V28) active 2019-01-16 Problem[address] [facility] Depression active 2019-01-[address] [facility] Post-nasal drip active 2024-06-[address] [facility] Prolapse of anterior vaginal wall active EncounterDiagnosisAct [facility] JUAN MIGUEL Positive FREDY (antinuclear antibody) active 2020-12-17 ProblemAct [facility] Uterine prolapse active EncounterDiagnosisAct [facility] Tubular adenoma active 2019-01-[address] [facility] Prolapse of posterior vaginal wall active EncounterDiagnosisAct [facility] JUAN MIGUEL LIZ (stress urinary incontinence, female) active EncounterDiagnosisAct [facility] MIGUEL Osteoarthritis active 2019-01-[address] [facility] Insomnia active 2019-01-16 ProblemAct [facility] Anxiety active 2019-01-16 ProblemAct [facility] Osteoporosis active 2019-01-[address] Problem[address] [facility] Immunizations Vaccine Date Source Lot Number Status COVID-19 Seasonal (Novavax) 12yo and older 01/25/2023 [facility] completed Zoster recombinant (Shingrix ) 19yo and older 01/25/2023 [facility] [id number] completed Influenza trivalent, 0.5mL ( Fluad) 65yo and older 01/07/2022 [facility] [id number] completed Influenza trivalent, 0.5mL ( Fluad) 65yo and older 04/11/2021 [facility] [id number] completed Moderna SARS-CoV-2 COVID-19, mRNA, LNP-S, preservative free 07/23/2020 [facility] completed Moderna SARS-CoV-2 COVID-19, mRNA, LNP-S, preservative free 06/24/2020 [facility]_THSFRRIMMA completed Td Tetanus diptheria (Tdvax) 7yo and older 06/27/2019 [facility] [id number] completed Influenza trivalent, 0.5mL ( Fluad) 65yo and older 03/06/2019 [facility]_MAXSJUAN MIGUEL [id number] completed Td Tetanus diptheria (Tdvax) 7yo and older 06/04/2010 [facility]T HSFRAN completed Encounters Encounter Type Encounter Reason Primary Diagnosis Location Date Ambulatory Persons encountering health services in other specified circumstances Persons encountering health services in other specified circumstances [place] 05/26/2024 Care Team Organization Name Specialty Phone Email Start Date End Da te [place] Jada Santana Primary Care 06/12/2024 025 [place] Jada Santana Primary Care 05/26/2024 [place] NO PCP Primary Care 02/09/2024
--- OUTSIDE RECORDS SUMMARY | 2024-12-19 07:58 | XMS_ITS | Clinical Summary ---
Author Organization [facility] Address [address] [place] [address] Care Team Providers Care Adult Specialist Name Role Phone Jada Santana MD Primary Care Provider [phone] Natasha Toney APRN Unavailable [phone] Edy Davis MD Unavailable Allergies Active Allergy Reactions Criticality Noted Date Comments Lisinopril Cough Low 01/31/2019 Other reaction(s): Cough Sulfadiazine Rash/Dermatitis Low 01/16/2019 Other reaction(s): Rash/Dermatitis No reaction documented. No reaction documented. Medications OMEprazole (PriLOSEC) 40 MG capsule Take 1 [...] vagina 2 (two) times a week. 02/21/2024 Active cloNIDine (CATAPRES) 0.1 MG tablet Take 1 tablet (0.1 mg total) by mouth daily. 10/03/2023 Active Vitamin D3 (CHOLECALCIFERO L) 25 MCG (1000 UT) Cap Take 1 [...] 06/07/2024 Anxiety and depression 06/07/2024 Acid reflux Immunizations Immunization Administration Dates Next Due Covid-19 mRNA Primary [...] pur e alcohol) Once a month (two) [facility] Utilities Answer Date Recorded In the past 12 months has [employer], gas, oil, or water [employer] threatened to shut off services in your home? No 05/25/2024 Social Connection and Isolation Panel [NHANES] A nswer Date Recorded In a typical week, how many times do you talk on the phone with family, friends, or neighbors? Three times a week 05/25/2024 Frequency of Social Gatherin gs with Friends and Family Not on file 05/25/2024 Attends Denominational Services Not on file 05/25 Active Member [...] any time in the past 12 m [facility], were you homeless or living in a correction (including now)? No 05/25/2024 Education Answer Date Recorded What is the highest level of school you have completed or the highest degree you have received? Bachelor's degree (e.g., BA, AB, BS) 05/25/2024 Comments No Sex and Gender Information Value Date Recorded Sex Assigned at Female 05/24/2024 9:08 AM EST Legal Sex Female 1:02 PM EDT Gender Identity Female 05/24/2024 9:08 AM EST Sexual Orientation Heterosexual (straight) 05/24 9:08 AM EST Last Filed Vital Signs Vital Sign Reading Time Taken Comments Blood Pressure 128/78 05/26/2024 10:13 AM EST Pulse 79 05/26/2024 10:13 AM EST Temperature 36.3 C (97.4 F) 05/26/2024 10:13 AM EST Respiratory Rate 17 05/26/2024 10:13 AM EST [...] (Shingles) Vaccine (2 of 2) 03/22/2023 01/25/2023 COVID-19 Vaccine (4 - 2023-2 5 season) 2023 01/25/2023, 07/23/2020, 06/24/2020 Influenza Vaccine 11/24/2024 01/07/2022, 04/11/2021, 03/06/2019 RSV Vaccine 60 years and older and Patients (1 - 1-dose 75+ series) 02/11/2027 Hepatitis B Vaccines Aged Out No long er eligible based on patient's age to complete this topic Insurance [facility] [place] [address] Care Teams Adult Specialist Relationship Specialty Start Date End Date Jada Santana MD [address] [place] [address] PCP - General Internal Medicine 05/26/24 Natasha Toney APRN [address] [place] [address] Referring Provider 06/06/24 Edy Davis MD [address] [place] [address] Internal Medicine 06/07/24
--- OUTSIDE RECORDS SUMMARY | 2024-12-19 07:58 | XMS_ITS | Encounter Summary ---
Author Organization [facility] Address [address] [place] [address] Care Team Providers Care Medical Asst Name Role Phone Jason Hurley MD Primary Care Provider Tiburcio Garsia Unavailable Unavailable Natasha Toney APRN Unavailable Unavailable Encounter Details Date Type Department Care Team Description 04/05/2023 Orders Only Medical Records [address] [place] [address] Edy Davis MD [address] [facility] [address] [place] [address] Social History Tobacco Use Types Packs/Day Years [...] week 10/07/2023 How often do you attend [facility] or druze services? Never 10/07/2023 Do [...] Name Priority Date/Time Associated Diagnosis Comments OUTSIDE PATHOLOGY Routine 04/01/2023 documented in this encounter Results * OUTSIDE PATHOLOGY (04/01/2023) Edy Davis MD OUTSIDE LAB documented in this encounter Visit Diagnoses Not on filedocumented in this encounter Care Teams Medical Asst Relationship Specialty Start Date End Date Jason Hurley MD [address] [place] [address] PCP - General Internal Medicine 03/31/21 Tiburcio Garsia [address] [place] [address] Dermatology 06/11/22 Natasha Toney APRN [address] [place] [address] Internal Medicine 10/07/23 documented as of this encounter
--- OUTSIDE RECORDS SUMMARY | 2024-12-19 07:58 | XMS_ITS | Encounter Summary ---
Author Organization [facility] Address [address] [place] [address] Care Team Providers Care Surgery Attendant Name Role Phone Wellington Cowan MD Primary Care Provider Melissa vailaJennifer Rodriguez MD Primary Care Provider Melissa vailable Jason Hurley MD Primary Care Provider [phone] Tiburcio Garsia Unavailable Unavailable Natasha Toney APRN Unavailable Unavailable Encounter Details Date Type Department Care Team Description 05/24/2014 Hospital Medical Records [address] [place] [address] Abstract, Provider Social History Tobacco Use Types [...] week 10/07/2023 How often do you attend [facility] or hoahaoism services? Never 10/07/2023 Do you belong to any clubs o r organizations such as scientologist groups, unions, fraternal or athletic groups, or [...] place to sleep or slept in a fdc (including now)? No 10/07/2023 Sex Assigned at Date Recorded Female 03/10/2019 7:[address] Job Start Date Occupation Industry Not on file Not on file Not on file documented as of this encounter Plan of Treatment Not on file documented as of this encounter Visit Diagnoses Not on filedocumented in this encounter Care Teams Surgery Attendant Relationship Specialty Start Date End Date Wellington Cowan MD PCP - General 11/23/1997 01/10/19 Jennifer Keller MD PCP - General Internal Medicine 01/11/19 1 Jason Hurley MD [address] [place] [address] PCP - General Internal Medicine 03/31/21 Tiburcio Garsia [address] [place] [address] Dermatology 06/11/22 Natasha Toney APRN [address] [place] [address] Internal Medicine 10/07/23 documented as of this encounter
--- OUTSIDE RECORDS SUMMARY | 2024-12-19 07:59 | XMS_ITS | Clinical Summary ---
Author Organization [employer] Address [address] [facility] [address] [place] [address] Care Team Providers Care Clinic Licensed Practical Nurse Name Role Phone Unavailable Primary Care Provider [...] season) 2023 07/23/2020, 06/24/2020 Influenza Vaccine (#1) 2024 2, 04/11/2021, 03/06/2019 RSV Patients and Patients [...] patient's age to complete this topic Insurance [facility]
--- OUTSIDE RECORDS SUMMARY | 2024-12-19 07:59 | XMS_ITS | Encounter Summary ---
[facility] Address [address] [place] [address] Care Team Providers Care Supervisor Assembly Stock Name Role Phone Jason Hurley MD Primary Care Provider [phone] Tiburcio Garsia Unavailable Unavailable Natasha Toney APRN Unavailable Unavailable Encounter Details Date Type Department Care Team Description 08/10/2023 Refill Adult Medicine [address] [address] Jason Hurley MD [address] [place] [address] Social History Tobacco Use Types Packs/Day Years [...] often do you attend chur ch or zoroastrianism services? Never 10/07/2023 Do you belong to any clubs o r organizations such as islam groups, unions, fraternal or athletic groups, or [...] place to sleep or slept in a chcf (including now)? No 10/07/2023 Sex Assigned at [...] on filedocumented in this encounter Care Teams Supervisor Assembly Stock Relationship Specialty Start Date End Date Jason Hurley MD [address] [facility] [place] [address] PCP - General Internal Medicine 03/31/21 Tiburcio Garsia [address] [facility] [place] [address] Dermatology 06/11/22 Natasha Toney APRN [address] [place] [address] Internal Medicine 10/07/23 documented as of this encounter
--- OUTSIDE RECORDS SUMMARY | 2024-12-19 07:59 | XMS_ITS | Encounter Summary ---
Author Organization [facility] Address [address] [place] [address] Care Team Providers Care Cloth Calender Name Role Phone Jason Hurley MD Primary Care Provider [phone] Tiburcio Garsia Unavailable Unavailable Natasha Toney APRN Unavailable Unavailable Encounter Details Date Type Department Care Team Description 04/01/2023 Hospital Medical Records [address] [place] [address] Edy Davis MD [address] [facility] [address] [place] [address] Social History Tobacco Use Types Packs/Day Years [...] do you attend [facility] or amish services? Never 10/07/2023 Do you belong to any clubs o r organizations such as cheondoism groups, unions, fraternal or athletic groups, or [...] on filedocumented in this encounter Care Teams Cloth Calender Relationship Specialty Start Date End Date Jason Hurley MD [address] [place] [address] PCP - General Internal Medicine 03/31/[address] [facility] [place] [address] Dermatology 06/11/22 Natasha Toney APRN [address] [facility] [place] [address] Internal Medicine 10/07/23 documented as of this encounter
--- OUTSIDE RECORDS SUMMARY | 2024-12-19 07:59 | XMS_ITS | Encounter Summary ---
[facility] Address [address] [place] [address] Care Team Providers Care Equipment Processor Name Role Phone Jennifer Keller MD Primary Care Provider Melissa vailable Jason Hurley MD Primary Care Provider [phone] Tiburcio Garsia Unavailable Unavailable Natasha Toney APRN Unavailable Unavailable Encounter Details Date Type Department Care Team Description 05/25/2019 Orders Only Medical Records [address] [place] [address] Edy Davis MD [address] [place] [address] [address] [place] [address] Social History Tobacco Use Types Packs/Day Years [...] often do you attend chur ch or spiritism services? Never 10/07/2023 Do you belong to any clubs o r organizations such as confucianist groups, unions, fraternal or athletic groups, or [...] place to sleep or slept in a detention (including now)? No 10/07/2023 Sex Assigned at Date Recorded Female 03/10/2019 7:[address] Job Start Date Occupation Industry Not on file Not on file Not on file documented as of this encounter Plan of Treatment Not on file documented as of this encounter Procedures Procedure Name Priority Date/Time Associated Diagnosis Comments OUTSIDE PATHOLOGY Routine 05/22/2019 documented in this encounter Results * OUTSIDE PATHOLOGY (05/22/2019) Edy Davis MD OUTSIDE LAB documented in this encounter Visit Diagnoses Not on filedocumented in this encounter Care Teams Equipment Processor Relationship Specialty Start Date End Date Jennifer Keller MD PCP - General Internal Medicine 01/11/19 1 Jason Hurley MD [address] [place] [address] PCP - General Internal Medicine 03/31/21 Tiburcio Garsia [address] [place] [address] Dermatology 06/11/22 Natasha Toney APRN [address] [place] [address] Internal Medicine 10/07/23 documented as of this encounter
--- OUTSIDE RECORDS SUMMARY | 2024-12-19 07:59 | XMS_ITS | Encounter Summary ---
Author Organization [facility] Address [address] [place] [address] Care Team Providers Care Orchid Transplanter Name Role Phone Jason Hurley MD Primary Care Provider [phone] Tiburcio Garsia Unavailable Unavailable Natasha Toney APRN Unavailable Unavailable Encounter Details Date Type Department Care Team Description 11/25/2023 Telephone Medicine/Pediatrics - [place] [address] [place] [id number] Juve Pickett PA-C [address] [place] [address] Social History Tobacco Use Types Packs/Day Years [...] often do you attend chur ch or pentecostalism services? Never 10/07/2023 Do you belong to any clubs o r organizations such as restorationist groups, unions, fraternal or athletic groups, or [...] place to sleep or slept in a halfway (including now)? No 10/07/2023 Sex Assigned at Date Recorded Female 03/10/2019 7:[address] Job Start Date Occupation Industry Not on file Not on file Not on file documented as of this encounter Plan of Treatment Not on file documented as of this encounter Visit Diagnoses Not on filedocumented in this encounter Care Teams Orchid Transplanter Relationship Specialty Start Date End Date Jason Hurley MD [address] [facility] [place] [address] PCP - General Internal Medicine 03/31/21 Tiburcio Garsia [address] [facility] [place] [address] Dermatology 06/11/22 Natasha Toney APRN [address] [facility] [place] [address] Internal Medicine 10/07/23 documented as of this encounter
--- OUTSIDE RECORDS SUMMARY | 2024-12-19 07:59 | XMS_ITS | Encounter Summary ---
Author Organization [facility] Address [address] [place] [address] Care Team Providers Care Yard Manager Name Role Phone Jason Hurley MD Primary Care Provider [phone] Tiburcio Garsia Unavailable Unavailable Natasha Toney APRN Unavailable Unavailable Encounter Details Date Type Department Care Team Description 11/15/2023 Refill Urogynecology [address] [address] Adelina Magaña MD [address] [place] [address] [place] [address] Social History Tobacco Use Types Packs/Day Years [...] How often do you attend chur or christian services? Never 10/07/2023 Do you belong to [...] vaginitis documented in this encounter Care Teams Yard Manager Relationship Specialty Start Date End Date Jason Hurley MD [address] [place] [address] PCP - General Internal Medicine 03/31/21 Tiburcio Garsia [address] [place] [address] Dermatology 06/11/22 Natasha Toney APRN [address] [place] [address] Internal Medicine 10/07/23 documented as of this encounter
--- NOTE | 2024-12-19 08:02 | A.OFFVIS_ITS ---
Vital Signs 12/19/24 08:06 Height 5 ft 5 in Weight 160 lb 7.944 oz BMI 26.7 BP 124/82 Blood Pressure Location Lt brachial Position Sitting Pulse 65 Pulse Source Pulse Oximeter Pulse Oximetry (%) 98 Oxygen Delivery Method Room Air Intake Visit Reasons: Osteoporosis Intake Note: Patient presents for Osteoporosis follow up. Allergies lisinopril Allergy (Intermediate, Verified 12/19/24 08:05) Cough sulfasalazine Allergy (Intermediate, Verified 12/19/24 08:05) rash Medication List - Last Reconciled 12/19/24 by Brooklyn Mata MD acetaminophen ER (Tylenol Arthritis Pain) 1,300 mg PO Q12H PRN arm brace (Elbow Strap) Appy when using hands atorvastatin 20 mg PO DAILY bupropion HCl XL 300 mg PO DAILY cholecalciferol (vitamin D3) 25 mcg PO DAILY clonidine HCl 0.1 mg PO DAILY diclofenac sodium 1% (Arthritis Pain (diclofenac)) 4 grams topical QID melatonin 3 mg PO BEDTIME PRN omeprazole 20 mg PO DAILY HPI Comments Details: Patient is a 74-year-old female with hyperlipidemia, anxiety and depression, p olyarticular osteoarthritis (hands and L-spine), ulcerative colitis (currently diet managed) and osteoporosis here today for follow up Interval History: Patient last seen 06/23/24 with me - On alendronate 70mg weekly - Doing well - C/o bilateral hands and low back pain - DEXA scan with no improvement, alendronate switched to prolia - Topical diclofenac and parrafin wax baths Today, - On zolendronic acid 5mg IV yearly, prolia denied by insurance - Tolerating infusion - Hands doing better - Now complaining of bilateral knee pain Rheumatologic History: OA Osteoporosis May 2019 DEXA at [place]: T-scores at hip-2.5, and LS spine, -2.9 04/2022 DEXA at [place]: hip -1.7 LS spine -3.1 04/2022 alendronate started Current Rheumatology Medication(s): IV reclast 5mg yearly Vitamin D supplementation PFSH Medical History GERD (gastroesophageal reflux disease) Cervical lymphadenopathy Hyperlipidemia Tubular adenoma Surgical History Hx of cholecystectomy Family History Mother Alzheimer disease Breast cancer Father CVA (cerebral vascular accident) Hypertension Brother Myocardial infarct Son Bipolar 1 disorder Social History Household Members: Other Household Members Other:: partner Housing: Apartment Are you a primary care center manager to a significant other at home: No Do you presently have visiting nurse or other home services: No 75 years or older and lives alone: No Alcohol intake: current Alcohol intake frequency: a few times a month Alcohol type: wine Patient Tobacco Use Status: Never used Tobacco e-Cigarette/Vaping Use: Never Used service: No Current occupational status: employed 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 Review of Systems Const Details: Review of Systems Constitutional: Denies fever, chills, weight loss ENT: Denies vision changes, eye pain or eye redness, dental caries, dry mouth GI: Denies nausea, vomiting, diarrhea, abdominal pain, change in BM Pulm: Denies SOB, WATTS, hemoptysis, wheezing Cards: Denies chest pain, palpitations Skin: Denies Raynaud's, rash, nail changes, photosensitivity, PARKING LOT SIGNALER: Denies headaches, weakness, paresthesias, recurrent falls MSK: as per HPI All other systems reviewed and are unremarkable except noted above Physical Exam Exam Exam: Vital signs reviewed Physical Examination CONSTITUITIONAL Patient alert and cooperative. Well appearing and in no apparent painful distress MSK Hands * Right Hand: Able to make a fist. Significant Heberden and Shobha's nodes noted. Squaring of the 1st CMC. No tenderness to palpation of the PIPs, MCPs or DIPs * Left Hand: Able to make a fist. Significant Heberden and Shobha's nodes noted. Squaring of the 1st CMC. No tenderness to palpation of the PIPs, MCPs or DIPs Wrists * Right Wrist: No swelling or TTP. good ROM * Left Wrist: No swelling or TTP. good ROM Elbows * Right Elbow: Full ROM. No swelling or TTP. No TTP of the medial epicondyle. No TTP of the lateral epicondyle * Left Elbow: Full ROM. No swelling or TTP. No TTP of the medial epicondyle. No TTP of the lateral epicondyle Shoulders * Right shoulder: No swelling noted. No TTP of the AC joint. No TTP of the subacromial bursa. No TTP of the posterior shoulder * Left shoulder: No swelling noted. No TTP of the AC joint. No TTP of the subacromial bursa. No TTP of the posterior shoulder Hip bursa: No tenderness to palpation bilaterally Knees * Right knee: Full ROM. No swelling noted. No TTP of the knee joint line. TTP of pes anserine bursa * Left knee: Full ROM. No swelling noted. No TTP of the knee joint line. TTP of pes anserine bursa. * Crepitations felt bilaterally Ankles * Right ankle: Good ankle dorsiflexion and plantar flexion. No swelling. No TTP of the ankle joint * Left ankle: Good ankle dorsiflexion and plantar flexion. No swelling. No TTP of the ankle joint Feet * Right foot: Negative squeeze test * Left foot: Negative squeeze test Tender points? * No tenderness to palpation of the bilateral trapezius, supraspinatus, anterior costochondral junctions, bilateral suboccipital muscle insertions SKIN No rashes Vital Signs: Last Vital Signs Pulse 65 12/19/24 08:06 BP 124/82 12/19/24 08:06 Pulse Ox 98 12/19/24 08:06 Oxygen Delivery Method Room Air 12/19/24 08:06 BMI result Body Mass Index 26.7 Results Reviewed Results Reviewed: Laboratory Tests 04/28/24 07/07/24 09:10 09:35 Sodium 142 Potassium 4.3 Chloride 107 Carbon Dioxide 28 BUN 19 H Creatinine 0.79 AST 17 ALT 22 25-OH Vitamin D Total 57.5 37 DEXA 06/13/24 FINDINGS: The bone mineral density of the lumbar spine is 0.749 with a T-score of -3.5, and a Z-score of -1.8. This represents a BMD change of 0.1% compared to the prior exam. This is not statistically significant. The bone mineral density of the left total hip is 0.742 with a T-score of -2.1, and a Z-score of -0.6. This represents BMD change of -0.7% compared to the prior exam. This is not statistically significant. The bone mineral density of the left femoral neck is 0.773 with a T-score of -1.9, and a Z-score of -0.1. Assessment & Plan Assessment & Plan (1) Osteoporosis: Comment: May 2019 DEXA at [facility]: T-scores at hip-2.5, and LS spine, -2.9 DEXA 04/2022: AP spine -3.1, Left femur neck -2.1, Left femur total -2.1 04/2022 alendronate started DEXA 05/2024: L spine -3.5, Left femur neck -1.9, Left femur total -2.1 Code(s): M81.0 - Age-related osteoporosis without current pathological fracture Category: Medical Qualifiers: Osteoporosis type: age-related Presence of current pathological fracture: without current pathological fracture Qualified Code(s): M81.0 - Age- related osteoporosis without current pathological fracture Plan: #Osteoporosis Patient is a 74-year-old female who has osteoporosis without fracture. Bone density between 2022 and 2024 grossly unchanged with no improvement. Started on IV reclast 06/2024 Plan - IV reclast 5mg yearly - DEXA 2026 - RTC 6 months - Labs prior to visit: CMP, vitamin D (2) Osteoarthritis of knees, bilateral: Code(s): M17.0 - Bilateral primary osteoarthritis of knee Qualifiers: Osteoarthritis type: primary Qualified Code(s): M17.0 - Bilateral primary osteoarthritis of knee Plan: #Bilateral OA Patient complaining of knee pain, with exam showing knee OA and pes anserine bursitis Plan - XR bilateral knees - Pes anserine bursitis excercises given - if no improvement can do steroid injection (3) Osteoarthritis of hands, bilateral: Code(s): M19.041 - Primary osteoarthritis, right hand; M19.042 - Primary osteoarthritis, left hand Category: Medical Qualifiers: Osteoarthritis type: primary Qualified Code(s): M19.041 - Primary osteoarthritis, right hand; M19.042 - Primary osteoarthritis, left hand Plan: #Bilateral Hand OA Improved (4) FREDY positive: Comment: 2020: 1:1280, speckled pattern. Negative EDENILSON, Sjogren's antibody, anti DNA, rheumatoid factor, CCP antibody, B27 Code(s): R76.8 - Other specified abnormal immunological findings in serum Category: Medical Plan: #Positive FREDY The presence of antinuclear antibodies (FREDY) is mainly associated with connective tissue diseases (CTD). ?However, their presence is found in healthy people especially in women and patients >65. ?In healthy individuals, the frequency of FREDY has been shown to be 31.7% of individuals at 1:40 serum dilution, 13.3% at 1:80, 5.0% at 1:160, and 3.3% at 1:320 (2). Some drugs and xenobiotics are also important for the development of FREDY (hydralazine, hydrochlorothiazide, minocycline, terbinafine, ciprofloxacin, furosemide, omeprazole). Moreover, the deficiency of vitamin D in the body of patients correlates with occurrence of these antibodies (1). At this time there is low suspicion for a connective tissue disease. ? Patient also has a history of ulcerative colitis which can also generate an FREDY as well. 1. Melisa?argenis La, Slick Blanchard, Kelsie Geiger. Antinuclear antibodies in healthy people and non-rheumatic diseases - diagnostic and clinical implications. Reumatologia. 2018;56(4):243-248. doi: 10.5114/reum.2018.37685. Epub 2017Dec 24. PMID: 57791952; PMCID: [id number]. 2. Trotter EM, Santos TE, Yolanda JS, Mark B, Jaime R, Maryam MJ, Donato T, Behzad JA, Pawel JR, Sanjana RG, Nighat RN, Francois JS, Lizet NF, Dani RJ, Takfranchesca Y, Gonzalo A, Dudley MR, Gary FIELDS. Range of antinuclear antibodies in healthy individuals. Arthritis Rheum. 1996;40(9):1601-11. doi: 10.1002/art.8072628295. PMID: 4535287. (5) Encounter for ongoing osteoporosis therapy, bisphosphonates: Code(s): M81.0 - Age-related osteoporosis without current pathological fracture; Z79.83 - MCC (current) use of bisphosphonates Plan: #Long-term Use of Bisphosphonates Risks and benefits of bisphosphonates in the management of osteoporosis Benefits include improved bone density, decreased fracture risk Risks include atypical femoral fractures, GI upset, esophageal strictures Contraindicated in patients with a creatinine clearance < 30 to 35 ml/min Keep vitamin-D at least 35 ng/mL Plan I spent 35 minutes reviewing the record and labs, taking a history, examining the patient, discussing the treatment plan and documenting in the medical record Orders: Orders XR knee LT 3V Today M25.561 - Pain in right knee, M25.562 - Pain in left knee Comprehensive Met. Panel Today M81.0 - Age-related osteoporosis without current pathological fracture XR knee RT 3V Today M25.561 - Pain in right knee, M25.562 - Pain in left knee Vitamin D 25-OH Total Today E55.9 - Vitamin D deficiency, unspecified Coding Level of Care Code Est Pt Level 4 (84571) Complex EM visit Add On G2211 Diagnoses Age-related osteoporosis without current pathological fracture M81.0 Osteoporosis type: age-related Presence of current pathological fracture: without current pathological fracture Primary osteoarthritis of both knees M17.0 Osteoarthritis type: primary Primary osteoarthritis of both hands M19.041; M19.042 Osteoarthritis type: primary FREDY positive R76.8 Encounter for ongoing osteoporosis therapy, bisphosphonates M81.0; Z79.83
[2024-12-19 08:06] VITALS: BP 124/82; PULSE 65; O2SAT 98; BMI 26.7
== END 2024-12-19 08:24 | disposition home or self-care (01) ==
LOC: HO.RHES 07:54
PROVIDERS: PCP Internal Medicine; Visit Provider Student in an Organized Health Care Education/Training Program
DX: M81.0 Age-related osteoporosis without current pathological fracture (principal); M17.0 Bilateral primary osteoarthritis of knee; M19.041 Primary osteoarthritis, right hand; M19.042 Primary osteoarthritis, left hand; R76.8 Other specified abnormal immunological findings in serum; Z79.83 Long term (current) use of bisphosphonates
CPT/HCPCS: 99214; G2211

== ENCOUNTER 2024-12-19 07:53 | Outpatient (REF) | payer MEDICARE, SELFPAY ==
[2024-12-19 13:42] LABS: Alanine Aminotransferase 19 U/L (0-31); Albumin Level 4.1 g/dL (3.5-5.0); Alkaline Phosphatase 57 U/L (39-117); Anion Gap 12 (12-20); Aspartate Amino Transferase 20 U/L (5-31); Blood Urea Nitrogen 18 mg/dL (9-16); Calcium 9.1 mg/dL (8.4-10.2); Carbon Dioxide 28 mmol/L (22-29); Chloride 106 mmol/L (96-108); Estimated Glomerular Filt Rate > 60; Potassium 4.1 mmol/L (3.3-5.1); Sodium 142 mmol/L (135-145); Total Protein 6.7 g/dL (6.5-8.0)
== END 2024-12-19 07:54 | disposition home or self-care (01) ==
LOC: HO.HKASLDS 07:53
PROVIDERS: PCP Internal Medicine; Visit Provider Student in an Organized Health Care Education/Training Program
DX: M81.0 Age-related osteoporosis without current pathological fracture (principal); E55.9 Vitamin D deficiency, unspecified; M25.561 Pain in right knee; Z79.83 Long term (current) use of bisphosphonates
CPT/HCPCS: 36415; 80053; 82306; 99212

== ENCOUNTER 2025-04-11 11:05 | Outpatient (AMB) | payer MEDICARE, SELFPAY ==
--- NOTE | 2025-04-11 11:14 | A.OFFVIS_ITS ---
Vital Signs 04/11/25 11:22 Height 5 ft 5 in Weight 162 lb 4.163 oz BMI 27.0 BP 134/82 Blood Pressure Location Lt brachial Position Sitting Pulse 81 Pulse Source Pulse Oximeter Pulse Oximetry (%) 98 Oxygen Delivery Method Room Air Intake Visit Reasons: knee pain Intake Note: Patient presents today for bilateral knee pain follow up. Filter Operator Required: No Information Interpreted: non-clinical & clinical Accompanied by: Self / Same As Patient Allergies lisinopril Allergy (Intermediate, Verified 04/11/25 11:21) Cough sulfasalazine Allergy (Intermediate, Verified 04/11/25 11:21) rash HPI Comments Details: Patient is a 75-year-old female with hyperlipidemia, anxiety and depression, polyarticular osteoarthritis (hands and L-spine), ulcerative colitis (currently diet managed) and osteoporosis here today for follow up Interval History: Patient last seen 12/19/24 with me - On zolendronic acid 5mg IV yearly - Tolerating infusion - Hands doing better - Now complaining of bilateral knee pain - exercises given Today - On zolendronic acid 5mg IV yearly - Urgent visit for knee pain - presenting for an evaluation of worsening right knee pain. - She had knee pain at her last visit, which had been improving with exercises and topical diclofenac until she underwent hysterectomy in February. - Following a rough recovery, her right knee pain has worsened. - The patient reports the pain is greater in the right knee compared to the left. - Ibuprofen and Tylenol do not provide relief, but BC Powder helps for a short period. - The pain causes functional difficulty, requiring her to put pressure on her left foot to stand up from a seated position. - She has a history of arthritis, which previously manifested more as stiffness. Rheumatologic History: OA Bilateral knee Osteoporosis May 2019 DEXA at [place]: T-scores at hip-2.5, and LS spine, -2.9 04/2022 DEXA at [place]: hip -1.7 LS spine -3.1 04/2022 alendronate started - stopped 05/2024 not effective 06/2024: zolendronic acid 5mg IV yearly, prolia denied by insurance Current Rheumatology Medication(s): IV reclast 5mg yearly Vitamin D supplementation [facility] Medical History GERD (gastroesophageal reflux disease) Cervical lymphadenopathy Hyperlipidemia Tubular adenoma Surgical History Hx of cholecystectomy Family History Mother Alzheimer disease Breast cancer Father CVA (cerebral vascular accident) Hypertension Brother Myocardial infarct Son Bipolar 1 disorder Social History Household Members: Other Household Members Other:: partner Housing: Apartment Are you a primary ambulatory care nurse to a significant other at home: No Do you presently have visiting nurse or other home services: No 75 years or older and lives alone: No Alcohol intake: current Alcohol intake frequency: a few times a month Alcohol type: wine Patient Tobacco Use Status: Never used Tobacco e-Cigarette/Vaping Use: Never Used service: No Current occupational status: employed 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 Review of Systems Narrative Review of Systems Constitutional: Denies fever, chills, weight loss ENT: Denies vision changes, eye pain or eye redness, dental caries, dry mouth GI: Denies nausea, vomiting, diarrhea, abdominal pain, change in BM Pulm: Denies SOB, WATTS, hemoptysis, wheezing Cards: Denies chest pain, palpitations Skin: Denies Raynaud's, rash, nail changes, photosensitivity, TRAFFIC OPERATIONS ENGINEER: Denies headaches, weakness, paresthesias, recurrent falls MSK: as per HPI All other systems reviewed and are unremarkable except noted above Physical Exam Exam Exam: Vital signs reviewed Physical Examination CONSTITUITIONAL Patient alert and cooperative. Well appearing and in no apparent painful distress MSK Hands * Right Hand: Able to make a fist. Significant Heberden and Shobha's nodes noted. Squaring of the 1st CMC. No tenderness to palpation of the PIPs, MCPs or DIPs * Left Hand: Able to make a fist. Significant Heberden and Shobha's nodes noted. Squaring of the 1st CMC. No tenderness to palpation of the PIPs, MCPs or DIPs Wrists * Right Wrist: No swelling or TTP. good ROM * Left Wrist: No swelling or TTP. good ROM Elbows * Right Elbow: Full ROM. No swelling or TTP. No TTP of the medial epicondyle. No TTP of the lateral epicondyle * Left Elbow: Full ROM. No swelling or TTP. No TTP of the medial epicondyle. No TTP of the lateral epicondyle Shoulders * Right shoulder: No swelling noted. No TTP of the AC joint. No TTP of the subacromial bursa. No TTP of the posterior shoulder * Left shoulder: No swelling noted. No TTP of the AC joint. No TTP of the subacromial bursa. No TTP of the posterior shoulder Hip bursa: No tenderness to palpation bilaterally Knees * Right knee: Full ROM. No swelling noted. No TTP of the knee joint line. TTP of pes anserine bursa * Left knee: Full ROM. No swelling noted. No TTP of the knee joint line. TTP of pes anserine bursa. * Crepitations felt bilaterally Ankles * Right ankle: Good ankle dorsiflexion and plantar flexion. No swelling. No TTP of the ankle joint * Left ankle: Good ankle dorsiflexion and plantar flexion. No swelling. No TTP of the ankle joint Feet * Right foot: Negative squeeze test * Left foot: Negative squeeze test Tender points? * No tenderness to palpation of the bilateral trapezius, supraspinatus, anterior costochondral junctions, bilateral suboccipital muscle insertions SKIN No rashes Vital Signs: Last Vital Signs Pulse 81 04/11/25 11:22 BP 134/82 04/11/25 11:22 Pulse Ox 98 04/11/25 11:22 Oxygen Delivery Method Room Air 04/11/25 11:22 BMI result Body Mass Index 27.0 Office Procedures AMB Joint Injection/Aspiration Joint Injection/Aspiration Details: Procedure was explained to the patient and informed consent was obtained. ? Risks associated with the procedure were discussed with the patient including but not limited to bleeding, infection, drug reactions and reactions to the topical anesthetic. Patient made aware of signs to look out for infectious complications. The area of interest was identified and confirmed with patient. ?This was subsequently cleaned with chlorhexidine x 2. ? The area was then anesthetized using ethyl chloride spray. 40 mg Kenalog with 1 cc 1% lidocaine was injected without issue. ?Minimal to no bleeding. ?Patient tolerated procedure. Primary Site: Right Knee Secondary Site: Left Knee Prep: site was prepped using aseptic technique and ethochloride spray was applied Injected: 40 mg of, Kenalog, with 1 mL of and 1% plain Lidocaine Procedure: The patient tolerated the procedure well Coding 71254 - Large joint Procedure code (CPT) selection complete AMB Joint Injection/Aspiration Joint Injection/Aspiration Details: Procedure was explained to the patient and informed consent was obtained. ? Risks associated with the procedure were discussed with the patient including but not limited to bleeding, infection, drug reactions and reactions to the topical anesthetic. Patient made aware of signs to look out for infectious complications. The area of interest was identified and confirmed with patient. ?This was subsequently cleaned with chlorhexidine x 2. ? The area was then anesthetized using ethyl chloride spray. 40 mg Kenalog with 1 cc 1% lidocaine was injected without issue. ?Minimal to no bleeding. ?Patient tolerated procedure. Primary Site: Right Knee Prep: site was prepped using aseptic technique and ethochloride spray was applied Injected: 40 mg of, Kenalog, with 1 mL of and 1% plain Lidocaine Procedure: The patient tolerated the procedure well Coding 62882 - Large joint Procedure code (CPT) selection complete Office Meds lidocaine (PF) 10 mg/mL (1 %) injection solution Performing Provider: Brooklyn Mata MD Performing Location: [facility] Administered by: Brooklyn Mata MD on 04/11/25 11:57 Dose Route Admin Location Dispensed Lot Number Expiration Date [facility] Costuming Supervisor 1 mL Infiltration left knee bursa 2 mL [id number] 09/23/26 12832-579- 04 [employer] Total Dispensed Waste 2 mL 50 % Kenalog 40 mg/mL suspension for injection Performing Provider: Brooklyn Mata MD Performing Location: [facility] Administered by: Brooklyn Mata MD on 04/11/25 11:57 Dose Route Admin Location Dispensed Lot Number Expiration Date [facility] Costuming Supervisor 40 mg intrabursal left knee bursa 1 mL [id number] 10/23/26 [address] -1 [employer] Total Dispensed Waste 1 mL 0 % lidocaine (PF) 10 mg/mL (1 %) injection solution Performing Provider: Brooklyn Mata MD Performing Location: [facility] Administered by: Brooklyn Mata MD on 04/11/25 11:57 Dose Route Admin Location Dispensed Lot Number Expiration Date [facility] Costuming Supervisor 1 mL Infiltration right knee bursa 2 mL [id number] 09/23/26 20549-375 -04 [employer] Total Dispensed Waste 2 mL 50 % Kenalog 40 mg/mL suspension for injection Performing Provider: Brooklyn Mata MD Performing Location: [facility] Administered by: Brooklyn Mata MD on 04/11/25 11:57 Dose Route Admin Location Dispensed Lot Number Expiration Date [facility] Costuming Supervisor 40 mg intrabursal right knee bursa 1 mL [id number] 10/23/26 85027-407 9-1 [employer] Total Dispensed Waste 1 mL 0 % Results Reviewed Results Reviewed: Laboratory Tests 04/28/24 07/07/24 09:10 09:35 Sodium 142 Potassium 4.3 Chloride 107 Carbon Dioxide 28 BUN 19 H Creatinine 0.79 AST 17 ALT 22 25-OH Vitamin D Total 57.5 37 DEXA 06/13/24 FINDINGS: The bone mineral density of the lumbar spine is 0.749 with a T-score of -3.5, and a Z-score of -1.8. This represents a BMD change of 0.1% compared to the prior exam. This is not statistically significant. The bone mineral density of the left total hip is 0.742 with a T-score of -2.1, and a Z-score of -0.6. This represents BMD change of -0.7% compared to the prior exam. This is not statistically significant. The bone mineral density of the left femoral neck is 0.773 with a T-score of -1.9, and a Z-score of -0.1. Assessment & Plan Assessment & Plan (1) Osteoarthritis of knees, bilateral: Code(s): M17.0 - Bilateral primary osteoarthritis of knee Qualifiers: Osteoarthritis type: primary Qualified Code(s): M17.0 - Bilateral primary osteoarthritis of knee Plan: #Bilateral Knee OA Patient is a 75 year old female with osteoporosis here today with worsening right knee pain is attributed to bursitis based on physical exam findings of localized tenderness and swelling, with a non-tender joint and non-painful range of motion. Exam consistent with bilateral knee bursitis. Patient s/p bilateral knee bursa injection Plan - s/p bilateral knee bursa steroid injections - RTC for regular follow up Plan I spent 20 minutes reviewing the record and labs, taking a history, examining the patient, discussing the treatment plan and documenting in the medical record Orders: Orders AMB Joint Injection/Aspiration Today M70.51 - Other bursitis of knee, right knee, M70.52 - Other bursitis of knee, left knee AMB Joint Injection/Aspiration Today M70.51 - Other bursitis of knee, right knee, M70.52 - Other bursitis of knee, left knee Coding Level of Care Code Est Pt Level 3 (70208) Diagnoses Primary osteoarthritis of both knees M17.0 Osteoarthritis type: primary CPT Codes Coding - 67670 Large joint: 76346 - Large joint ([id number]) Coding - 82319 Large joint: 83482 - Large joint ([id number])
[2025-04-11 11:22] VITALS: BP 134/82; PULSE 81; O2SAT 98; BMI 27.0
--- OUTSIDE RECORDS SUMMARY | 2025-04-11 14:38 | XMS_ITS | Clinical Summary ---
Author Organization [facility] Address [address] [place] [address] Care Team Providers Care Ict Managers Name Role Phone Unavailable Primary Care Provider [...] 2) 03/22/2023 01/25/2023 COVID-19 Vaccine (3 - 2024-2 6 season) 2024 07/23/2020, 06/24/2020 Influenza Vaccine (#1) 2024 2, [...] patient's age to complete this topic Insurance [facility]
--- OUTSIDE RECORDS SUMMARY | 2025-04-11 14:38 | XMS_ITS | Clinical Summary ---
Author Organization [facility] [address] [place] [address] [place] [phone] Phone Care Team Providers Care Manager Auto Name Role Phone Jada Santana MD Primary Care Provider [phone] Allergies Active Allergy Reactions Criticality Noted Date Comments Lisinopril Cough 01/31/2019 Sulfadiazine Rash 01/16/2019 Other Reaction(s): Rash/Dermatitis No reaction documented. Medications atorvastatin (LIPITOR) 20 mg tablet TAKE 1 TABLET BY MOUTH EVERY DAY 4 Active buPROPion XL (WELLBUTRIN XL) 150 mg 24 hr tablet 2 tablets (300 mg total) 1 (one) time each day. 4 Active busPIRone (BUSPAR) 5 mg tablet Take 1 Tablet by mouth 2 Times Daily. 4 Active cholecalcifero l (VITAMIN D-3) 25 mcg (1,000 unit) capsule Take 1 Cap by mouth daily. Active cloNIDine (CATAPRES) 0.1 mg tablet Take 1 Tablet by mouth daily. 4 Active estradioL (ESTRACE) 0.01 % (0.1 mg/gram) vaginal cream Please use a pea-sized amount on your finger and place inside the vagina twice a week at night (Mondays and ) 4 Active melatonin 3 mg tablet Take 1 Tab by mouth at bedtime as needed. Active omeprazole (PriLOSEC) [address] capsule 2 (two) times a day before meals. 4 Active diclofenac (VOLTAREN) 1 % topical gel 4 (four) times a day. 5 Active cetirizine (ZyrTEC) 10 mg tablet Take 1 tablet (10 mg total) by mouth 1 (one) time each day. Active ibuprofen (ADVIL,MOTRIN) 800 mg tablet Take 1 tablet (800 mg total) by mouth every 8 (eight) hours. Take 800mg every 8 hours for the first few days after surgery - stagger with acetaminophen - then as needed 60 tablet 1 5 Active polyethylene glycol (PEG) 17 gram/dose oral powder Take 17 g by mouth 1 (one) time each day. Please take daily after surgery 116 g 1 5 Active traMADoL (ULTRAM) 50 mg tabletIndicati ons:pain Take 1 tablet (50 mg total) by mouth every 8 (eight) hours if needed for severe pain. Max Daily Amount: 150 mg 5 tablet 5 Active acetaminophen (TYLENOL) 500 mg tablet Take 1 tablet (500 mg total) by mouth every 8 (eight) hours. Please take two tablets every 8 hours for the first few days after surgery, then as needed 60 tablet 1 5 Active solifenacin (VESICARE) 5 mg tablet Take 1 tablet (5 mg total) by mouth 1 (one) time each day. Swallow tablet whole; do not crush, chew, or split. 90 tablet 3 5 Active Active Problems Problem Noted Date Diagnosed [...] Encounters Date Type Department Care Team Description 03/29/2025 2:45 PM EST Office Visit Urogyneallogy [address] [phone] Yaneli Resendez NP Postoperative state (Primary Dx) 03/07/2025 Results Follow-Up Urogynecology - [address] [place] [address] Adelina Magaña MD 03/06/2025 Telephone Urogynecology [address] [place] [address] Roxann Cowart RN 03/05/2025 7:30 AM EST - 03/05/2025 11:00 AM EST Surgery [facility] [place] [address] [place] [phone] Adelina Magaña MD HYSTERECTOMY VAGINAL LEFT PARTIAL SALPINGECTOMY [57486 (CPT )] 03/05/2025 7:24 AM EST Anesthesia Event [facility] [place] [address] [place] [phone] Celio Salgado MD Dasilva, John E, MD 03/05/2025 5:51 AM EST - 03/05/2025 1:47 PM EST Hospital Encounter [facility] [place] [address] [place] [phone] Adelina Magaña MD Stress incontinence; Prolapse of anterior vaginal wall; Prolapse of posterior vaginal wall; Uterine prolapse Discharge Disposition: Home or Self Care 02/20/2025 8:30 AM EDT Office Visit Urogynecology [address] [phone] Adelina Magaña MD Uterine prolapse (Primary Dx); Prolapse of posterior vaginal wall; Prolapse of anterior vaginal wall; Urge incontinence; Urinary urgency; Nocturia 02/08/2025 10:00 AM EDT Procedure visit Urogyneallogy [address] [phone] Yaneli Resendez NP Dysfunctional voiding of urine (Primary Dx); LIZ (stress urinary incontinence, female) 01/29/2025 Telephone Urogynecology [facility] [address] [place], [place] [phone] [facility] Abreu [place] from Last 3 Months Immunizations Immunization Administration Dates Next Due COVID-19 Seasonal (Novavax) [...] COLONOSCOPY; COMMENT: Dr. Davis; proctitis, UC, bx OTHER SURGICAL HISTORY Bilateral PROCEDURE: MA DILATION & CURETTAGE DX&/THER NONOBSTETRIC DILATION AND CURETTAGE OF UTERUS Medical History Medical History Date Comments GERD (gastroesophageal reflu x disease) 01/16/2019 DX:GERD (gastroesophageal re flux disease) Anxiety 01/16/2019 DX:Anxiety Insomnia 01/16/2019 DX:Insomnia Depression 01/16/2019 DX:Depression Ulcerative colitis (CMS/HCC V24, CMS/HCC V28) 01/16/2019 DX:Ulcerative colitis (HCC); COMMENT: in remission x years Tubular adenoma 01/16/2019 DX:Tubular adeno ma Hyperlipidemia 01/16/2019 DX:Hyperlipidemi a Osteoarthritis 01/16/2019 DX:Osteoarthriti s; COMMENT: Hands and knees. Cervical lymphadenopathy 01/16/2019 DX:Cerv ical lymphadenopathy Shortness of breath Joint pain Osteoporosis Family History Medical History Relation Name Comments [...] drink = 0.6 oz pur e alcohol) SOCAIL Interpersonal Safety Answer Date Record ed Physical Abuse Unrecognized value 03/05/2025 Verbal Abuse Unrecognized value 03/05/2025 Comments No Sex and Gender Information Value Date Recorded Sex Assigned at Not on file Legal Sex Female 8:39 AM EST Gender Identity Not on file Sexual Orientation Not on file Last Filed Vital Signs Vital Sign Reading Time Taken Comments Blood Pressure 152/83 03/29/2025 2:50 PM EST Pulse 81 03/29/2025 2:50 PM EST Temperature 36.6 C (97.8 F) 03/05/2025 11:43 AM EST Respiratory Rate 18 03/05/2025 11:43 AM EST Oxygen Saturation 95% 03/05/2025 12:20 PM EST Inhaled Oxygen Concentration - - Weight 72.6 kg (160 lb) 02/20/2025 8:29 AM EDT Height 165.1 cm (5' 5 ) 02/20/2025 8:29 AM EDT Body Mass Index 26.63 02/20/2025 8:29 AM EDT Plan of Treatment Upcoming Encounters Date Type Department Care Team (Late st Contact Info) Description 04/17/2025 8:45 AM EST Office Visit Urogynecology - [address] [phone] Adelina Magaña MD [address] [place] [address] [address] [place] [address] Health Maintenance Due Date Last Done Comments Breast Cancer Screening 1950 Pneumococcal Vaccine: 50+ Years (2 of 2 - PCV20 or PCV21) 01/04/2021 01/05/2020 Medicare Annual Wellness Visit 03/29/2022 Social Influencers of Health Screening 03/29/2022 Depression Screening 04/26/2024 COVID-19 Vaccine ( season) 2024 09/27/2024, 01/01/2024, 01/25/2023, Additional history exists Influenza Vaccine (#1) 2024 , 01/07/2022, 04/11/2021, Additional history exists Falls Risk Assessment 03/05/2026 03/05/2025 Colorectal Cancer Screening: Colonoscopy 04/01/2026 04/01/2023 Cholesterol Screening (Lipid Panel) 06/27/2028 06/28/2023 Osteoporosis Screening (Bone Density Screening) 06/21/2029 06/21/2019 DTaP,Tdap,and Td Vaccines (4 - Td or Tdap) 09/27/2034 09/27/2024, 06/27/2019, 06/04/2010 Hepatitis C Screening Completed 01/31/2019 RSV Immunization Adult Patients Completed 10/13/2024 Zoster Vaccines Completed 10/13/2024, 01/25/2023 HIB Vaccines Aged Out No longer eligi [...] on patient's age to complete this topic Medical Devices Implanted Type Area Professor Of Engineering Device Identifier Shelf Expiration Date Model / Serial / Lot Sling Transvaginal Advantage Fit Blue - Sn/A - [id number] Implanted:Qty: 1 on 03/05/2025 by Adelina Magaña MD at [facility] Surgical [employer]esh Sling Implants N/A: Urinary Bladder [employer] [id number] 01/08/2028 [id number] 120 / N/A / [id number] Procedures Procedure Name Priority Date/Time Associated Diagnosis Comments OXYGEN THERAPY, ADULT Routine 03/05/2025 10:49 AM EST TISSUE EXAM Routine 03/05/2025 8:49 AM EST Stress incontinence Prolapse of anterior vaginal wall Prolapse of posterior vaginal wall Uterine prolapse TH AN ENDOTRACHEAL(NO CHARGE) Routine 03/05/2025 7:45 AM EST MA CYSTOURETHROSCOPY 03/05/2025 7:25 AM EST Stress incontinence Prolapse of anterior vaginal wall Prolapse of posterior vaginal wall Uterine prolapse Special Needs Time change to 730 per [facility] via Teams ac 10/9Changed BSO to Bilateral Salpingo-Oophorectomy 03/02Skin to skin: 3hrs MA SLING OPERATION FOR STRESS INCONTINENCE 03/05/2025 7:25 AM EST Stress incontinence Prolapse of anterior vaginal wall Prolapse of posterior vaginal wall Uterine prolapse Special Needs Time change to 730 per [facility] via Teams ac 10/9Changed BSO to Bilateral Salpingo-Oophorectomy 03/02Skin to skin: 3hrs MA COLPORRHAPHY ANTEROPOSTERIOR COMBINED INCL CYSTOURETHROSCOPY 03/05/2025 7:25 AM EST Stress incontinence Prolapse of anterior vaginal wall Prolapse of posterior vaginal wall Uterine prolapse Special Needs Time change to 730 per [facility] via Teams ac 10/9Changed BSO to Bilateral Salpingo-Oophorectomy 03/02Skin to skin: 3hrs MA COLPOPEXY VAGINAL INTRA-PERITONEAL APPROACH 03/05/2025 7:25 AM EST Stress incontinence Prolapse of anterior vaginal wall Prolapse of posterior vaginal wall Uterine prolapse Special Needs Time change to 730 per [facility] via Teams ac 10/9Changed BSO to Bilateral Salpingo-Oophorectomy 03/02Skin to skin: 3hrs MA VAGINAL HYSTERECTOMY FOR UTERUS 250G/< W REMOVAL TUBES/OVARY 03/05/2025 7:25 AM EST Stress incontinence Prolapse of anterior vaginal wall Prolapse of posterior vaginal wall Uterine prolapse Special Needs Time change to 730 per [facility] via Teams ac hanged BSO to Bilateral Salpingo-Oophorectomy ac 03/02Skin to skin: 3hrs PROCEDURAL ECG Routine 03/05/2025 6:40 AM EST RECHECK ABORH Routine 03/05/2025 6:06 AM EST TYPE AND SCREEN STAT 03/05/2025 6:06 AM EST LIPID PANEL Routine 06/28/2023 HM COLONOSCOPY Routine 04/01/2023 DXA BONE DENSITY STUDY 1+ SITS AXIAL SKEL Routine 06/21/2019 12:47 PM EST Encounter for screening for osteoporosis HEPATITIS C SCREENING Routine 01/31/2019 from Last 3 Months or Most Recently Relevant to Health Maintenance Results * Tissue exam (03/05/2025 8:49 AM EST) Final Diagnosis A. Uterus, cervix, and remnants of left fallopian tube: Leiomyoma Adenomyosis Atrophic endometrium Chronic cervicitis Portions of fallopian tube without atypia or neoplasm B. Bladder biopsy: Benign urothelial mucosa with patchy lymphocytes and ectatic vessels No atypia or neoplasm identified on deeper levels 03/07/2025 7:53 AM EST [facility] at 0752 EST Gross Description A. Endometrium, Uterus, cervix and remnants of left fallopian tube: Labeled uterus, C endo . Received in formalin is a symmetrical uterine corpus and a separate portion of fallopian tube and fimbria with a combined weight of 49 grams. The uterine corpus measures 3.2 x 3.0 x 2.6 cm and symmetrical. The serosa is hairston-pink glistening with attached blood clot. The attached cervix measures 4.0 cm in length and up to 4.0 cm in width. The ectocervical mucosa is white to pink and focally keratinized with a central, patent, 0.6 cm in greatest diameter slit-like os. The specimen is opened. The endocervical canal is hairston and glistening. The cut surfaces of the cervix are white and rubbery, with mucous-filled Nabothian cysts. The triangular in shape endometrial cavity measures 2.5 cm in length and 1.1 cm in width. The endometrium is hairston-red and measures approximately 0.1 cm. The myometrium is hairston-pink and rubbery. There is a 0.8 cm in greatest diameter hairston, glistening, posterior intramural nodule. No other nodules are identified. The myometrium measures approximately 1.0 cm thick. The soft, hairston, glistening portion of fimbria measures 0.7 cm in greatest diameter. A curled, hairston-pink fallopian tube segment, 1.1 x 0.45 cm, shows a central, pinpoint. Project Reservoir Engineer sections are submitted in six cassettes. 1-anterior cervix, one piece 2-posterior cervix and cross-section of separately received fallopian tube, two pieces 3-vpoo-[id number] anterior endomyometrium, one piece 2-szhx-aehmqtkyz posterior myometrium, one piece 5-posterior intramural nodule, bisected, in entirety, two pieces 6-separately received fimbria, in toto, one piece B. Urinary Bladder, BLADDER BIOPSY: Labeled bladder B . Received in formalin, on Telfa, is a soft, thin, white-red, 0.15 cm in greatest diameter tissue fragment which is wrapped in paper and submitted in toto in one cassette, one piece, multiple levels. TS 03/07/2025 7:53 AM EST [facility] Disclaimer Unless otherwise specified, all tissue is 10% NB formalin fixed and paraffin embedded. 03/07/2025 7:53 AM EST [facility] Tissue Endometrial structure / Unknown 03/05/2025 8:49 AM EST 03/05/2025 11:16 AM EST Tissue specimen (specimen) Urinary bladder structure / Unknown 03/05/2025 9:46 AM EST 03/05/2025 11:16 AM EST us Adelina Magaña MD LAB PATHOLOGY ORDERABLES Final R esult [facility] LAB [address] [place] [address], [place] [phone] * TH AN ENDOTRACHEAL(NO CHARGE) (03/05/2025 7:45 AM EST) Yang Ann CRNA - 03/05/2025 7:45 AM EST Yang Driver CRNA 03/05/2025 7:46 AM General Information and Staff Patient location during procedure: OR Resident/REWEAVER: Yang Driver CRNA Performed: resident/REWEAVER/CAA Performed by: Yang Driver CRNA Authorized by: Nestor Padron MD Intubation Airway not difficult Reason: elective Final Airway Details Successful airway: ETT Cuffed: yes Successful intubation technique: direct laryngoscopy Adjuncts used in placement: anterior pressure/BURP Endotracheal tube insertion site: oral Blade: Devon Blade size: #3 ETT size (mm): 7.5 Cormack-Lehane Classification: grade IIa - partial view of glottis Placement verified by: chest auscultation, capnometry and palpation of cuff Measured from: gums ETT to gums (cm): 22 Ventilation between attempts: none Final airway type: endotracheal airway Indications and Patient Condition Indications for airway management: anesthesia Sedation level: Yes Preoxygenated: yesSoft Tissue Damage: No Dentition Unchanged: Yes Patient position: neutral MILS maintained throughout Mask difficulty assessment: 2 - vent by mask + OA or adjuvant +/- NMBA Nestor Padron MD ANESTHESIA ORDERABLES Final Re sult * ECG 12 lead - Procedural (No Charge) (03/05/2025 6:40 AM EST) Ventricular Rate ECG 74 BPM GEMUSE Atrial Rate 74 BPM GEMUSE P-R Interval 176 ms GEMUSE QRS Duration 94 ms GEMUSE Q-T Interval 408 ms GEMUSE QTc 452 ms GEMUSE P Wave Helix 10 degrees GEMUSE R Helix -8 degrees GEMUSE ECG Interpretation Normal sinus rhythm Cannot rule out Anterior infarct , age undetermined Abnormal ECG No previous ECGs available Confirmed by MD Walls Christopher ([id number]) on 03/05/2025 5:02:57 PM GEMUSE 03/05/2025 6:40 AM EST 03/05/2025 5:02 PM EST Nestor Padron MD ECG ORDERABLES Final Result Performing Organization Address City/[facility]/ZIP Co de Phone Number GEMUSE * Recheck blood typing (03/05/2025 6:06 AM EST) ABO Group O 03/05/2025 9:16 AM EST [facility] Rh Type Positive 03/05/2025 9:16 AM EST [facility] Blood Venous blood specimen / Unknown Venipuncture / Unknown 03/05/2025 6:06 AM EST 03/05/2025 6:26 AM EST us Adelina Magaña MD LAB BLOOD BANK TEST ORDERABLES F inal Result Performing Organization Address [facility] Co de Phone Number [facility] [address] [place] [address], [place] [phone] * Type and screen (03/05/2025 6:06 AM EST) Pathologist [facility] ABO Group O 03/05/2025 8:34 AM EST [facility] Rh Type Positive 03/05/2025 8:34 AM EST [facility] Antibody Screen Negative 03/05/2025 8:34 AM EST [facility] Blood Venous blood specimen / Unknown Venipuncture / Unknown 03/05/2025 6:06 AM EST 03/05/2025 6:26 AM EST us Adelina Magaña MD LAB BLOOD BANK TEST ORDERABLES F inal Result Performing Organization Address [facility]/ZIP Co de Phone Number [facility] [address] [place] [address], [place] [phone] * (ABNORMAL) Lipid panel (06/28/2023) Pathologist [facility] LDL/HDL Ratio 3 0 - 4 Triglycerides [...] scores not able to be calculated. The [facility] Department of Internal Medicine recommends using National [...] alternative screening schedule based on nakul Martinez., [facility] May 14, 2011 for patients with osteopenia [...] scores not able to be calculated. The [facility] Department of Internal Medicine recommendsusing National Osteoporosis [...] Resu lt * Hepatitis C Screening (01/31/2019) [facility] Hepatitis C Screening abstracted Historical Provider MD HEALTH MAINTENANCE Final Result from Last 3 Months or Most Recently Relevant to Health Maintenance Insurance [place] [phone] Advance Directives * Full Code - Default (Latest Code Status on File) Date Activated Date Inactivated Comments 03/05/2025 10:45 AM 03/05/2025 3:52 PM This is o rder is used when code status has not been discussed with the patient, or code status is otherwise unknown/unconfirmed To update the patient's code status, place a code status order. Do not modify or discontinue any currently active code status orders. * Full Code - Default Date Activated Date Inactivated Comments 03/05/2025 6:00 AM 03/05/2025 10:45 AM This is o rder is used when code status has not been discussed with the patient, or code status is otherwise unknown/unconfirmed To update the patient's code status, place a code status order. Do not modify or discontinue any currently active code status orders. Care Teams Manager Auto Relationship Specialty Start Date End Date Jada Santana MD [address] [place] [address] PCP - General Internal Medicine 06/09/24
--- OUTSIDE RECORDS SUMMARY | 2025-04-11 14:39 | XMS_ITS | Encounter Summary ---
Author Organization [facility] Address [address] [place] [address] Care Team Providers Care Paralegal Secretary Name Role Phone Jada Santana MD Primary Care Provider [phone] Natasha Toney APRN Unavailable [phone] Edy Davis MD Unavailable Encounter Details Date Type Department Care Team (Late st Contact Info) Description 02/27/2025 Scanned Document [facility] [address] [place] [address] Rheumatology, Scan Social History Tobacco Use Types Packs/Day Years Used Date Smoking Tobacco: Never Smokeless Tobacco: Never Alcohol Use Standard Drinks/Week Comments Yes 0 (1 standard drink = 0.6 oz pur e alcohol) Once a month (two) [facility] Utilities Answer Date Recorded In the past 12 months has e electric, gas, oil, or water company threatened to shut off services in your home? No 05/25/2024 Social Connection and Isolation Panel Answer Date Recorded In a typical week, how many times do you talk on the phone with family, friends, or neighbors? Three times a week 05/25/2024 Frequency of Social Gatherin gs with Friends and Family Not on file 05/25/2024 Attends [employer] Not on file 05/25 Active Member [...] any time in the past 12 m [facility], were you homeless or living in a residential (including now)? No 05/25/2024 Education Answer Date [...] on filedocumented in this encounter Care Teams Paralegal Secretary Relationship Specialty Start Date End Date Jada Santana MD [address] [place] [address] PCP - General Internal Medicine 05/26/24 Natasha Toney APRN [address] [place] [address] Referring Provider 06/06/24 Edy Davis MD [address] [place] [address] Internal Medicine 06/07/24 documented as of this encounter
--- OUTSIDE RECORDS SUMMARY | 2025-04-11 14:39 | XMS_ITS | Clinical Summary ---
Author Organization [facility] Address [address] [place] [address] Care Team Providers Care Marble Finisher Name Role Phone Jada Santana MD Primary Care Provider [phone] Natasha Toney APRN Unavailable [phone] Edy Davis MD Unavailable Allergies Active Allergy Reactions Criticality Noted Date Comments Lisinopril Cough Low 01/31/2019 Other reaction(s): Cough Sulfadiazine Rash/Dermatitis Low 01/16/2019 Other reaction(s): Rash/Dermatitis No reaction documented. No reaction documented. Medications solifenacin (VESICARE) 5 MG tablet Take 1 tablet (5 mg total) by mouth daily. Active melatonin 3 MG Tab tablet Take 1 tablet (3 mg total) by mouth as needed. Active estradiol (ESTRACE) 0.01 % vaginal cream Insert into the vagina 2 (two) times a week. 4 Active cloNIDine (CATAPRES) 0.1 MG tablet Take 1 tablet (0.1 mg total) by mouth daily. 4 Active Vitamin D3 (CHOLECALCIFEROL) 25 MCG (1000 UT) Cap Take 1 capsule by mouth daily. Active busPIRone (BUSPAR) 5 MG tablet Take 1 tablet (5 mg total) by mouth 2 times a day. 4 Active acetaminophen (TYLENOL) 500 MG tablet Take 2 tablets (1,000 mg total) by mouth every morning. 5 Active cetirizine (ZyrTEC) 10 MG tablet Take 1 tablet (10 mg total) by mouth as needed. Active buPROPion (WELLBUTRIN XL) 300 MG 24 hr tablet Take 1 tablet (300 mg total) by mouth every morning. Active diclofenac (VOLTAREN) 1 % gel APPLY 4 G TOPICALLY 4 TIMES A DAY.(APPLY TO BILATERAL HANDS 4 TIMES A DAY) Active OMEprazole (PriLOSEC) 40 MG capsuleIndications :Gastroesophageal reflux disease, unspecified whether esophagitis present Take 1 capsule (40 mg total) by mouth daily at the same time. 90 capsule 1 Active atorvastatin (LIPITOR) 20 MG tabletIndications: Hyperlipidemia, unspecified hyperlipidemia type Take 1 tablet (20 mg total) by mouth daily. 90 tablet 5 Active Active Problems Problem Noted Date Diagnosed Date Prediabetes 02/28/2025 Hyperlipidemia 06/07/2024 Osteoporosis 06/07/2024 Anxiety and depression 06/07/2024 Acid reflux Encounters Date Type Department Care Team Description 03/30/2025 Scanned Document [address] [phone] Primary Care, Scan 02/27/2025 Scanned Document [facility] [address] [place] [address] Rheumatology, Scan 02/22/2025 3:00 PM EDT Office Visit [address] [place] [phone] Jada Santana MD Preop examination (Primary Dx); Tremor; Hyperlipidemia, unspecified hyperlipidemia type; Osteoporosis, unspecified osteoporosis type, unspecified pathological fracture presence; Gastroesophageal reflux disease, unspecified whether esophagitis present from Last 3 Months Immunizations Immunization Administration Dates Next Due Covid-19 [...] pur e alcohol) Once a month (two) [facility] Utilities Answer Date Recorded In [...] and Family Not on file 05/25/2024 Attends Judaism Services Not on file 05/25 Active Member [...] any time in the past 12 m [facility], were you homeless or living in a long-term (including now)? No 05/25/2024 Education Answer Date [...] Sign Reading Time Taken Comments Blood Pressure 134/78 02/22/2025 3:54 PM EDT Pulse 78 02/22/2025 3:18 PM EDT Temperature 36 C (96.8 F) 02/22/2025 3:18 PM EDT Respiratory Rate 17 02/22/2025 3:18 PM EDT Oxygen Saturation 98% 02/22/2025 3:18 PM EDT Inhaled Oxygen Concentration - - Weight 74.5 kg (164 lb 3.2 oz) 02/22/2025 3:18 P M EDT Height 165.1 cm (5' 5 ) 02/22/2025 3:18 PM EDT Body Mass Index 27.32 02/22/2025 3:18 PM EDT Plan of Treatment Health Maintenance Due Date Last Done Comments Advance Care Planning 1950 Hepatitis C Virus Screening 1950 Annual Wellness Visit 02/11/1970 Physical 02/11/1970 DTaP/Tdap/Td Vaccines (1 - Tdap) 02/11/1971 Mammogram 1992 Colonoscopy 02/11/1997 Pneumococcal Vaccines 50+ (1 of 1 - PCV) 02/11/2002 DXA Bone Density (Females,Ages 65 and older) 02/11/2017 Zoster (Shingles) Vaccine (2 of 2) 03/22/2023 01/25/2023 Influenza Vaccine 11/24/2024 01/07/2022, 04/11/2021, 03/06/2019 COVID-19 Vaccine (4 - 2024-2 6 season) 2024 01/25/2023, 07/23/2020, 06/24/2020 RSV Vaccine 50 years and older and Patients (1 - 1-dose 75+ series) 02/11/2027 Hepatitis B Vaccines Aged Out No long er eligible based on patient's age to complete this topic Procedures Procedure Name Priority Date/Time Associated Diagnosis Comments VITAMIN D, 25-HYDROXY Routine 02/27/2025 7:40 AM EST Osteoporosis, unspecified osteoporosis type, unspecified pathological fracture presence LIPID PANEL REFLEX DIRECT LDL Routine 02/27/2025 7:40 AM EST Hyperlipidemia, unspecified hyperlipidemia type TSH, HIGHLY SENSITIVE Routine 02/27/2025 7:40 AM EST Tremor BASIC METABOLIC PANEL Routine 02/27/2025 7:40 AM EST Preop examination COMPLETE BLOOD COUNT, WITH DIFFERENTIAL Routine 02/27/2025 7:40 AM EST Preop examination ECG 12-LEAD Routine 02/22/2025 3:47 PM EDT Preop examination from Last 3 Months Results * (ABNORMAL) Lipid Panel Reflex Direct LDL (02/27/2025 7:40 AM EST) Cholesterol, Total 259(H) <200 mg/dL [facility] Cholesterol, HDL 56 > OR = 50 mg/dL [facility] Triglycerides 170(H) <150 mg/dL [facility] LDL Cholesterol 171(H) mg/dL (calc) [facility] Comment: Reference range: <100 Desirable range <100 mg/dL for primary prevention; <70 mg/dL for patients with CHD or diabetic patients with > or = 2 CHD risk factors. LDL-C is now calculated using the Bhakti calculation, which is a validated novel method providing better accuracy than the Friedewald equation in the estimation of LDL-C. Maximino DAWN et al. DAVON. 2013;310(19): 6228-6228 (http://education.Surround App/faq/ATZ162) Cholesterol/HDL Ratio 4.6 <5.0 (calc) [facility] Non HDL Chol. (LDL+VLDL) 203(H) <130 mg/dL (calc) [facility] Comment: For patients with diabetes plus 1 major ASCVD risk factor, treating to a non-HDL-C goal of <100 mg/dL (LDL-C of <70 mg/dL) is considered a therapeutic option. Blood specimen / Unknown 02/27/2025 7:40 AM EST 02/27/2025 7:40 AM EST Narrative [facility] - 02/28/2025 10:02 AM EST FASTING:YES FASTING: YES us Jada Santana MD LAB BLOOD ORDERABLES Final Res ult Before the Call [address] [place] [phone] * (ABNORMAL) Complete Blood Count, with Differential (02/27/2025 7:40 AM EST) White Blood Cell Count 6.7 3.8 - 10.8 Thousand/ uL [facility] Red Blood Cell Count 4.10 3.80 - 5.10 Million/u L [facility] Hemoglobin 13.0 11.7 - 15.5 g/dL [facility] Hematocrit 40.9 35.0 - 45.0 % [facility] MCV 99.8 80.0 - 100.0 fL [facility] MCH 31.7 27.0 - 33.0 pg [facility] MCHC 31.8(L) 32.0 - 36.0 g/dL [facility] Comment: For adults, a slight decrease in the calculated MCHC value (in the range of 30 to 32 g/dL) is most likely not clinically significant; however, it should be interpreted with caution in correlation with other red cell parameters and the patient's clinical condition. RDW 13.8 11.0 - 15.0 % [facility] Platelet Count 237 140 - 400 Thousand/ uL [facility] MPV 9.7 7.5 - 12.5 fL [facility] Abs Neutrophils Auto 4,429 1,500 - 7,800 cells/uL [facility] Abs Lymphocytes Auto 1,608 850 - 3,900 cells/uL [facility] Abs Monocytes Auto 496 200 - 950 cells/uL [facility] Abs Eosinophils Auto 114 15 - 500 cells/uL [facility] Abs Basophils Auto 54 0 - 200 cells/uL [facility] Neutrophils Auto 66.1 % [facility] [place] Lymphocytes Auto 24.0 % [facility] Monocytes Auto 7.4 % [facility] Eosinophils Auto 1.7 % [facility] Basophils Auto 0.8 % [facility] Blood specimen / Unknown 02/27/2025 7:40 AM EST 02/27/2025 7:40 AM EST Narrative [facility] - 02/28/2025 10:02 AM EST FASTING:YES FASTING: YES us Jada Santana MD LAB BLOOD ORDERABLES Final Res ult [facility] [address] [place] [address] * VITAMIN D, 25-HYDROXY (02/27/2025 7:40 AM EST) Vitamin D,25-Oh,Total, IA 70 30 - 100 ng/mL [facility] Comment: Vitamin D Status 25-OH Vitamin D: Deficiency: <20 ng/mL Insufficiency: 20 - 29 ng/mL Optimal: > or = 30 ng/mL For 25-OH Vitamin D testing on patients on D2-supplementation and patients for whom quantitation of D2 and D3 fractions is required, the [facility](TM) 25-OH VIT D, (D2,D3), LC/MS/MS is recommended: order code 32415 (patients >2yrs). See Note 1 Note 1 For additional information, please refer to http://education.Surround App/faq/GHG489 (This link is being provided for informational/ educational purposes only.) Blood specimen / Unknown 02/27/2025 7:40 AM EST 02/27/2025 7:40 AM EST Narrative [facility] - 02/28/2025 10:02 AM EST FASTING:YES FASTING: YES Jada Santana MD LAB BLOOD ORDERABLES Final Res ult Performing Organization Address [facility] de Phone Number Before the Call [address] [place] [phone] * TSH, HIGHLY SENSITIVE (02/27/2025 7:40 AM EST) Pathologist [facility] TSH, Highly Sensitive 1.85 0.40 - 4.50 mIU/L [facility] Blood specimen / Unknown 02/27/2025 7:40 AM EST 02/27/2025 7:40 AM EST Narrative [facility] - 02/28/2025 10:02 AM EST FASTING:YES FASTING: YES Jada Santana MD LAB BLOOD ORDERABLES Final Res ult Performing Organization Address [facility] de Phone Number Before the Call [address] [place] [phone] * (ABNORMAL) Basic Metabolic Panel (02/27/2025 7:40 AM EST) Pathologist [facility] Glucose 105(H) 65 - 99 mg/dL [facility] Comment: Fasting reference interval For someone without known diabetes, a glucose value between 100 and 125 mg/dL is consistent with prediabetes and should be confirmed with a follow-up test. Blood Urea Nitrogen (BUN) 17 7 - 25 mg/dL [facility] Creatinine 0.77 0.60 - 1.00 mg/dL [facility] Creatinine w/ eGFR 81 > OR = 60 mL/min/1. 73m2 [facility] BUN/Creatinine Ratio SEE NOTE: (calc) [facility] Comment: Not Reported: BUN and Creatinine are within reference range. Sodium 140 135 - 146 mmol/L [facility] Potassium 4.5 3.5 - 5.3 mmol/L [facility] Chloride 104 98 - 110 mmol/L [facility] CO2 26 20 - 32 mmol/L [facility] Calcium 9.0 8.6 - 10.4 mg/dL [facility] Blood specimen / Unknown 02/27/2025 7:40 AM EST 02/27/2025 7:40 AM EST Narrative [facility] - 02/28/2025 10:02 AM EST FASTING:YES FASTING: YES us Jada Santana MD LAB BLOOD ORDERABLES Final Res ult Before the Call [address] [place] [phone] * ECG 12 lead (02/22/2025 3:47 PM EDT) Ventricular rate 68 BPM EKG [facility] Atrial rate 68 BPM EKG [facility] P-R interval 174 ms EKG [facility] QRS duration 98 ms EKG [facility] Q-T interval 420 ms EKG [facility] QTC calculation (Bazett) 446 ms EKG [facility] P axis 43 degrees EKG [facility] R axis -8 degrees EKG [facility] T axis 1 degrees EKG [facility] 02/22/2025 3:47 PM EDT Narrative [facility] - 03/02/2025 2:17 PM EST Normal sinus rhythm Normal ECG No previous ECGs available Confirmed by Jada Santana MD ([id number]) on 03/02/2025 2:17:03 PM Procedure Note Jada Santana MD - 03/02/2025 Normal sinus rhythm Normal ECG No previous ECGs available Confirmed by Jada Santana MD ([id number]) on 03/02/2025 2:17:03 PM Jada Santana MD ECG ORDERABLES Final Result EKG [facility] from Last 3 Months Insurance [facility] MEDICARE Care Teams Marble Finisher Relationship Specialty Start Date End Date Jada Santana MD [address] [place] [address] PCP - General Internal Medicine 05/26/24 Natasha Toney APRN [address] [place] [address] Referring Provider 06/06/24 Edy Davis MD [address] [place] [address] Internal Medicine 06/07/24
--- OUTSIDE RECORDS SUMMARY | 2025-04-11 14:39 | XMS_ITS | Encounter Summary ---
Author Organization [facility] [place] [address] Care Team Providers Care Sample Sewer Name Role Phone Jada Santana MD Primary Care Provider [phone] Encounter Details Date Type Department Care Team ([facility] Contact Info) Description 03/07/2025 Results Follow-Up Urogynecology - [address] [place] [address] Adelina Magaña MD [address] [place] [address] Social History Tobacco Use Types Packs/Day Years [...] as of this encounter Plan of Treatment Upcoming Encounters Date Type Department Care Team ([facility] Contact Info) Description 04/17/2025 8:45 AM EST Office Visit Urogynecology [address] [phone] Adelina Magaña MD [address] [facility] [address] [place] [address] documented as of this encounter Visit Diagnoses Not on filedocumented in this encounter Care Teams Sample Sewer Relationship Specialty Start Date End Date Jada Santana MD [address] [place] [address] PCP - General Internal Medicine 06/09/24 documented as of this encounter
--- OUTSIDE RECORDS SUMMARY | 2025-04-11 14:39 | XMS_ITS | Clinical Summary ---
Author Organization [employer] Address [address] [place] [address] Care Team Providers Care Medical Imaging Technician Name Role Phone Unavailable Primary Care Provider [...] Mass Index - - Plan of Treatment Not on file Medical Devices Not on file Insurance [place] [address]
--- OUTSIDE RECORDS SUMMARY | 2025-04-11 14:39 | XMS_ITS | Encounter Summary ---
Author Organization [facility] Address [address] [place] [id number] Care Team Providers Care Director Of Enterprise Applications Name Role Phone Jada Santana MD Primary Care Provider [phone] Natasha Toney APRN Unavailable [phone] Edy Davis MD Unavailable Encounter Details Date Type Department Care Team (Late st Contact Info) Description 03/30/2025 Scanned Document [address] [place] [phone] Primary Care, Scan Social History Tobacco Use Types Packs/Day Years Used Date Smoking Tobacco: Never Smokeless Tobacco: Never Alcohol Use Standard Drinks/Week Comments Yes 0 (1 standard drink = 0.6 oz pur e alcohol) Once a month (two) [place] Utilities Answer Date Recorded In the past [...] and Family Not on file 05/25/2024 Attends Confucianism Services Not on file 05/25 Active Member [...] any time in the past 12 m [facility], were you homeless or living in [...] on filedocumented in this encounter Care Teams Director Of Enterprise Applications Relationship Specialty Start Date End Date Jada Santana MD [address] [place] [address] PCP - General Internal Medicine 05/26/24 Natasha Toney APRN [address] [place] [address] Referring Provider 06/06/24 Edy Davis MD [address] [place] [address] Internal Medicine 06/07/24 documented as of this encounter
== END 2025-04-11 12:44 | disposition home or self-care (01) ==
LOC: HO.RHES 11:05
PROVIDERS: PCP Internal Medicine; Visit Provider Student in an Organized Health Care Education/Training Program
DX: M17.0 Bilateral primary osteoarthritis of knee (principal)
CPT/HCPCS: 20610; 99213

== ENCOUNTER → 2025-04-11 11:05 | Outpatient (BNVA) | payer MEDICARE, SELFPAY | PROVIDERS: PCP Internal Medicine; Visit Provider Student in an Organized Health Care Education/Training Program | DX: M17.0 Bilateral primary osteoarthritis of knee (principal); M70.51 Other bursitis of knee, right knee; M70.52 Other bursitis of knee, left knee | CPT/HCPCS: 20610; 99212; J2003; J3301 ==